=== PATIENT | male | born 1985 | race Caucasian/White ===

== ENCOUNTER → 2017-04-07 | Outpatient (CLI) | payer BC, OTHER ==
[~2017-04-07] MED LIST: ACIDOPHILUS1 EAC3 PO; APAP500 PO; ATIVAN0.5 MG PO; CEFAZOLIN-2 GM/1002 IV; CEFTIN500 MG; COLACE100 MG PO; ENOXAPARIN40 MG/0.1 SUBQ; FLORANEX GRANU1 EACH PO; HYDROCHLOROTHIA25 M1 PO; LAMISIL AT 1% C12 G1 TOP; LASIX 40 MG TAB40 M2 PO; LEXAPRO 10 MG T10 M1 PO; LISINOPRIL-HCT1 EACH PO; LISINOPRIL10 MG; MAG-AL PLUS SUS30 ML PO; MICROZIDE12.5 MG PO; PERCOCET 7.5-31 EACH PO; PROAIR HFA8.5 GM INH; PROBIOTIC1 EAC1 PO; SENOKOT-S1 TA1 PO; SUPRAX400 M1 PO; TRAMADOL 50 MG50 MG PO; TUMS PO; VITAMINC500 PO; ZINC SULFATE 2220 M1 PO
--- NOTE | ~2017-04-07 | SLE ---
[facility] [place] [address] POLYSOMNOGRAPHY STUDY Name: JENNIFER LEDBETTER Room #: [facility]..#: [id number] Admission: 04/07/17 Attend Phys: Cristóbal Turner MD Discharge: Date of : 87 Report #: [id number] THIS REPORT FOR: //name// CC: Pooja Turner MD HISTORY: A 31-year-old, height 5 feet 7 inches, weight 190 pounds. Usually goes to bed at 11, gets out of bed at 2:00 a.m. History of obstructive sleep apnea. He was on an auto titrating CPAP between 12 and 18 cm and did not tolerate. COMMENTS: CPAP/BiPAP titration night. Titrated at 7, 8, 9, 10, 12, 14, 16, 18 cm water pressure. He was then titrated on BiPAP. IPAP of 14, EPAP of 10; IPAP of 15, EPAP of 10, 17/10, 19/10, 21/10, 23/10. A definite setting was not established. At an IPAP of 23, EPAP of 10, the patient was seen for 59 minutes of which 9.5 minutes was in REM sleep, apnea-hypopnea index was 0 events per sleep hour, low sat of 93%. IMPRESSION: 1. History of obstructive sleep apnea, G47.33. 2. No significant arrhythmia noted. 3. A definite CPAP setting was not established. 4. A definitive BiPAP setting was not established. The patient was seen at an IPAP of 23, EPAP of 10. Supine position was noted, however. SUGGESTIONS: 1. In addition to specific therapy, the patient should be cautioned regarding driving or operating dangerous machinery unless fully alert. The patient will be cautioned regarding the use of respiratory depressants. 2. Continued weight loss is recommended. 3. Oral appliance or appropriate surgery may be considered with polysomnographic followup. 4. May consider an auto titrating BiPAP, minimum EPAP of 6, minimum pressure support of 6, max EPAP of 12, max pressure support 10 above EPAP. 5. If signs and symptoms not improved with therapy, further evaluation recommended. Please do not hesitate to contact me if I may be of further assistance. By: 25 [id number] Stefan Navarrete MD /nt
== END ==
LOC: SLEEPLAB 11:29
DX: G47.33 Obstructive sleep apnea (adult) (pediatric) (principal)

== ENCOUNTER 2017-07-22 08:52 | Inpatient (IN) | payer BC, OTHER ==
[~2017-07-22] VITALS: Ht 170.2 cm; Wt 233.1 kg
[2017-07-22 08:54] VITALS: BP 199/90
[2017-07-22 10:13] LABS: BASOPHILS 0.8 % (0.0-2.0); EOSINOPHILS 3.6 % (0.0-3.0); HEMATOCRIT 39.8 % (42.0-52.0); LYMPHOCYTES 15.4 % (24.0-44.0); MCH 26.6 pg (26.0-34.0); MCHC 32.7 g/dL (28.0-37.0); MCV 81.4 fL (80.0-100.0); MONOCYTES 9.2 % (1.0-8.0); PLATELET COUNT 236 thou/uL (150-400); RBC 4.89 mil/uL (4.50-6.00); RDW 16.3 % (10.5-14.5); WBC 11.2 thou/uL (4.0-11.0)
[2017-07-22 10:23] LABS: CALCIUM 8.6 mg/dL (8.5-10.1); CREATININE 0.9 mg/dL (0.7-1.3); MANUAL DIFF NO; POTASSIUM 4.5 mmol/L (3.5-5.1)
[2017-07-22 10:29] LABS: ALBUMIN 3.6 g/dL (3.4-5.0); TOTAL PROTEIN 7.9 g/dL (6.4-8.2)
[2017-07-22 11:58] LABS: CHOLESTEROL 123 mg/dL (<200); HDL CHOLESTEROL 37 mg/dL (>40); LDL CHOLESTEROL 74 mg/dL (<100); TC:HDL 3.3 Ratio (Not establshd); TRIGLYCERIDE 64 mg/dL (<150); VLDL 13 mg/dL (<40)
[2017-07-22 12:22] VITALS: BP 199/90
[2017-07-22 12:44] VITALS: BP 154/75
[2017-07-22 12:50] VITALS: BP 159/80
[2017-07-22 16:00] VITALS: BP 156/72
[2017-07-22 20:30] VITALS: BP 144/69
[2017-07-23 04:40] VITALS: BP 148/75
[2017-07-23 07:48] VITALS: BP 147/69
[2017-07-23 09:50] LABS: HEMATOCRIT 36.6 % (42.0-52.0); HEMOGLOBIN 12.4 gm/dL (14.0-18.0); MCH 27.3 pg (26.0-34.0); MCV 80.3 fL (80.0-100.0); RBC 4.55 mil/uL (4.50-6.00); RDW 16.4 % (10.5-14.5); WBC 8.9 thou/uL (4.0-11.0)
[2017-07-23 15:39] VITALS: BP 143/69
[2017-07-23 19:20] VITALS: BP 129/71
[2017-07-24 03:50] VITALS: BP 146/81
[2017-07-24 06:46] VITALS: BP 146/81
[2017-07-24 08:10] VITALS: BP 145/82
[2017-07-24 15:44] VITALS: BP 158/69
[2017-07-24 20:08] VITALS: BP 154/64
[2017-07-25 04:08] VITALS: BP 147/89
[2017-07-25 07:19] VITALS: BP 161/72
[2017-07-25] MEDS ORDERED: SYNTHROID50 MCG PO (10:24)
[2017-07-25] MEDS ORDERED: BACTRIM DS TAB1 EACH PO (10:25)
[2017-07-25] MEDS ORDERED: GLUCOPHAGE500 MG PO (10:25)
[2017-07-25 12:00] VITALS: BP 161/72
== END 2017-07-25 16:17 | disposition home or self-care (01) | DRG 603 ==
LOC: ER 08:52 → 4S 11:16 → EROBS 11:16 → 4S 12:51 → ENTRNSPT 07-25 14:29 → EDTRNSPTSTS 07-25 14:30 → 4S 07-25 16:17
PROVIDERS: Hospitalist; Physician Assistant
DX: L03.116 Cellulitis of left lower limb (principal); Z68.45 Body mass index [BMI] 70 or greater, adult; I10 Essential (primary) hypertension; L25.9 Unspecified contact dermatitis, unspecified cause; L03.115 Cellulitis of right lower limb; B37.9 Candidiasis, unspecified; G47.30 Sleep apnea, unspecified; I27.81 Cor pulmonale (chronic); E11.9 Type 2 diabetes mellitus without complications; E03.9 Hypothyroidism, unspecified; L73.9 Follicular disorder, unspecified; E66.01 Morbid (severe) obesity due to excess calories; Z79.899 Other long term (current) drug therapy; Z88.1 Allergy status to other antibiotic agents
CPT/HCPCS: 10102

== ENCOUNTER 2018-03-22 14:51 | Inpatient (IN) | payer BC, OTHER ==
[~2018-03-22] VITALS: Ht 170.2 cm; Wt 220.4 kg
[~2018-03-22 14:51] MED LIST changes: +BACTRIM DS TAB1 EACH PO; +GLUCOPHAGE500 MG PO; +SYNTHROID50 MCG PO
[2018-03-22 15:01] VITALS: BP 177/99
[2018-03-22] MEDS ORDERED: LASIX 20 MG TAB20 MG PO (15:06)
[2018-03-22 15:48] LABS: ABSOLUTE NEUTROPHILS 9.2 thou/uL (1.4-8.2); BASOPHILS 0.6 % (0.0-2.0); EOSINOPHILS 1.9 % (0.0-3.0); HEMATOCRIT 35.7 % (42.0-52.0); HEMOGLOBIN 11.8 gm/dL (14.0-18.0); LYMPHOCYTES 12.3 % (24.0-44.0); MCH 27.1 pg (26.0-34.0); MCHC 33.2 g/dL (28.0-37.0); MCV 81.6 fL (80.0-100.0); MONOCYTES 9.6 % (1.0-8.0); PLATELET COUNT 256 thou/uL (150-400); POLYS 75.6 % (36.0-66.0); RBC 4.37 mil/uL (4.50-6.00); RDW 15.5 % (10.5-14.5); WBC 12.2 thou/uL (4.0-11.0)
[2018-03-22 15:55] LABS: CALCIUM 9.1 mg/dL (8.5-10.1); POTASSIUM 3.8 mmol/L (3.5-5.1)
[2018-03-22 17:41] VITALS: BP 162/66
[2018-03-22 20:00] VITALS: BP 112/57
[2018-03-23 03:53] LABS: HEMATOCRIT 38.2 % (42.0-52.0); HEMOGLOBIN 12.5 gm/dL (14.0-18.0); MCH 27.5 pg (26.0-34.0); MCHC 32.6 g/dL (28.0-37.0); MCV 84.3 fL (80.0-100.0); RBC 4.53 mil/uL (4.50-6.00); RDW 16.2 % (10.5-14.5); WBC 10.3 thou/uL (4.0-11.0)
[2018-03-23 03:56] LABS: CALCIUM 8.7 mg/dL (8.5-10.1); CREATININE 0.9 mg/dL (0.7-1.3); POTASSIUM 4.4 mmol/L (3.5-5.1)
[2018-03-23 04:00] LABS: ALBUMIN 3.4 g/dL (3.4-5.0); PHOSPHORUS 5.4 mg/dL (2.5-4.9)
[2018-03-23 05:30] VITALS: BP 155/70
[2018-03-23 07:30] VITALS: BP 152/98
[2018-03-23 11:30] VITALS: BP 140/53
[2018-03-23 15:36] VITALS: BP 109/54
[2018-03-23 19:29] VITALS: BP 135/57
[2018-03-24 00:25] VITALS: BP 148/59
[2018-03-24 00:27] LABS: HEMATOCRIT 35.6 % (42.0-52.0); HEMOGLOBIN 11.8 gm/dL (14.0-18.0); MCH 26.9 pg (26.0-34.0); MCHC 33.1 g/dL (28.0-37.0); MCV 81.3 fL (80.0-100.0); RBC 4.38 mil/uL (4.50-6.00); RDW 15.3 % (10.5-14.5); WBC 11.1 thou/uL (4.0-11.0)
[2018-03-24 00:39] LABS: ALBUMIN 3.5 g/dL (3.4-5.0); CALCIUM 8.9 mg/dL (8.5-10.1); CREATININE 0.9 mg/dL (0.7-1.3); PHOSPHORUS 5.4 mg/dL (2.5-4.9); POTASSIUM 3.6 mmol/L (3.5-5.1)
[2018-03-24 04:18] VITALS: BP 145/75
[2018-03-24 05:40] LABS: COLLECTION DURATION 24 hours
[2018-03-24 05:42] LABS: TOTAL VOLUME 7500 mL
[2018-03-24 05:45] LABS: URINE PROTEIN (MG/DL) 1.2 mg/dL; URINE PROTEIN mg/24 hr < 149 mg/24hr (<149.1)
[2018-03-24 07:40] VITALS: BP 139/61
[2018-03-24 11:25] VITALS: BP 132/59
[2018-03-24 15:50] VITALS: BP 144/56
[2018-03-24 19:37] VITALS: BP 125/64
[2018-03-25 04:30] LABS: ALBUMIN 3.8 g/dL (3.4-5.0); CALCIUM 9.2 mg/dL (8.5-10.1); CREATININE 1.1 mg/dL (0.7-1.3); POTASSIUM 3.8 mmol/L (3.5-5.1); TOTAL BILIRUBIN 1.8 mg/dL (<0.1-1.0); TOTAL PROTEIN 9.1 g/dL (6.4-8.2)
[2018-03-25 04:34] VITALS: BP 151/73
[2018-03-25 08:00] VITALS: BP 132/61
[2018-03-25 11:35] VITALS: BP 119/56
[2018-03-25 16:05] VITALS: BP 133/67
[2018-03-25 20:00] VITALS: BP 146/84
[2018-03-26] VITALS (7 sets, daily range): BP systolic 110–133; BP diastolic 56–68
[2018-03-26] MEDS ORDERED: BACTRIM DS TAB1 EACH PO (08:26)
== END 2018-03-26 16:25 | disposition home or self-care (01) | DRG 603 ==
LOC: ER 14:51 → 2N 16:21 → EROBS 16:21 → 2N 17:16 → ENTRNSPT 03-26 16:12 → 2N 03-26 16:25
PROVIDERS: Hospitalist; Physician Assistant
DX: L03.116 Cellulitis of left lower limb (principal); L03.115 Cellulitis of right lower limb; E66.01 Morbid (severe) obesity due to excess calories; R60.1 Generalized edema; I10 Essential (primary) hypertension; E11.9 Type 2 diabetes mellitus without complications; E03.9 Hypothyroidism, unspecified; F32.9 Major depressive disorder, single episode, unspecified; F41.9 Anxiety disorder, unspecified; I27.81 Cor pulmonale (chronic); G47.33 Obstructive sleep apnea (adult) (pediatric); Z88.1 Allergy status to other antibiotic agents; Z68.45 Body mass index [BMI] 70 or greater, adult; Z79.899 Other long term (current) drug therapy
CPT/HCPCS: 10194

== ENCOUNTER 2018-08-03 10:04 | Inpatient (IN) | payer BC, OTHER ==
[~2018-08-03] VITALS: Ht 170.2 cm; Wt 215.9 kg
--- NOTE | ~2018-08-03 | HC ---
[facility] [place] [address] CONSULTATION Name: ANATOLYJENNIFEROSVALDO ALMANZA Room #: 450-P ADM IN M.R.#: [id number] Admission: 08/03/18 Attend Phys: Russ Chacon MD Discharge: Date of : 87 Report #: [id number] THIS REPORT FOR: //name// CC: Thang Velez DATE OF SERVICE: 08/05/2018 REASON FOR CONSULTATION: I was asked to evaluate concerning lower extremity cellulitis and lymphedema. HISTORY OF PRESENT ILLNESS: The patient was a 33-year-old with morbid obesity, chronic lymphedema of both lower extremities who has had recurrent cellulitis. He has had difficulty following up with his appointments for his lymphedema control. He was evaluated for laparoscopic sleeve gastrectomy. He has not followed through with this procedure. He has ALLERGIES TO CLINDAMYCIN. He noticed this past week increased swelling, erythema and pain involving his left lower extremity. Swelling worsened and has had associated cellulitis develop. No pain up in his groin. No specific injury other than he thinks that the lower portion of his lower leg skin rubbed on some shoes that he had. Also, has a posterior calf ulcer on the right lower extremity. No definite fever, chills or sweats. Does have malaise. MEDICATIONS: Include Synthroid, Glucophage, Lexapro, lisinopril/hydrochlorothiazide, Lasix, tramadol. PAST MEDICAL HISTORY: Morbid obesity, diabetes, chronic lymphedema, depression, anxiety, obstructive sleep apnea, right humerus fracture, hypertension, recurring lymphedema, cellulitis and lymphangitis. Community-acquired pneumonia. FAMILY HISTORY: Heart disease, diabetes, hypertension. SOCIAL HISTORY: Nonsmoker. No significant alcohol intake. REVIEW OF SYSTEMS: Ten-point review was negative other than what is described above. PHYSICAL EXAMINATION: GENERAL: He was sitting up in his chair, in no acute distress, alert and oriented. VITAL SIGNS: Stable, with no fever. HEENT: Atraumatic. Eyes were without scleral icterus or conjunctivitis. Mouth without mucositis or ulcer. NECK: Thick, supple. No mass. No peripheral adenopathy palpable. SKIN: With cellulitis in the left lower leg from the ankle to the knee. 4+ [facility] [address] [place] [address] CONSULTATION Name: JENNIFER LEDBETTER Room #: 450-[facility] IN M.R.#: [id number] Admission: 08/03/18 Attend Phys: Russ Chacon MD Discharge: Date of : 87 Report #: [id number] lymphedema in this region. 2+ lymphedema in the right lower extremity. Morbidly obese. BACK: Unremarkable with no lesions. LUNGS: Clear. HEART: Regular, without murmur. ABDOMEN: Soft, nontender, no hepatosplenomegaly or mass. Large abdominal pannus. NEUROLOGIC: Nonfocal with cranial nerves intact. Strength in upper and lower extremities intact and normal with normal deep tendon reflexes. Sensation in his hands and feet normal. LABORATORY DATA: Blood cultures negative to date. Right leg wound culture pending with Gram stain showing gram-positive angelia. Vancomycin trough was 13. Sedimentation rate 50. Creatinine 0.9. Liver function tests normal. Hemoglobin 10.8, WBC 8.9, platelet count 209,000. BNP 121. Chest x-ray with cardiomegaly. IMPRESSION: A 33-year-old morbidly obese gentleman with chronic lymphedema with cellulitis and lymphangitis evident, left lower extremity. He has a venous stasis ulcer to the posterior right lower leg. RECOMMENDATION: We will continue with cefazolin. So far no evidence of resistant organisms. The patient will need to pursue lymphedema clinic to control his lower extremity edema. He will follow up with General Surgery regarding gastric surgery. Continue with leg elevation and edema control. <ELECTRONICALLY SIGNED> By: Tremaine Landis MD 08/06/18 1214 [id number] [id number] Tremaine Landis MD /nt
--- NOTE | ~2018-08-03 | HC ---
[facility] [place] [address] CONSULTATION Name: LEDBETTERJENNIFER ALMANZA Room #: 450-P ADM IN M.R.#: [id number] Admission: 08/03/18 Attend Phys: Speedy Pickard MD Discharge: Date of : 87 Report #: [id number] THIS REPORT FOR: //name// CC: Speedy Velez DATE OF SERVICE: 08/04/2018 WOUND CARE CONSULTATION REASON FOR CONSULTATION: Cellulitis of right leg with painful open draining wound in the setting of lymphedema, super morbid obesity and diabetes mellitus, type 2. 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 He has had trouble with lymphedema of his legs for most of his life. He has had approximately 6 hospitalizations related to lymphedema complications. The patient had seen Dr. Marko Keita in outpatient consultation for consideration of weight reduction surgery, but did not complete the outpatient consultation process. The patient has had recurrent episodes of cellulitis of the legs, last admitted to [facility] on 06/17/2018. He has trouble with wrapping the legs. Does not have much help at home and is therefore noncompliant with regard to lymphedema wraps. The patient's left leg is typically larger than the right. His right leg began to give him trouble couple of weeks ago, became red, tender and swollen. This became worse and worse, then with more pain and drainage from the wound on the posterior aspect of the right lower leg near the ankle. For this, he was admitted to the Emergency Room yesterday by Dr. Speedy Pickard. PAST MEDICAL HISTORY: Super morbid obesity, lymphedema, diabetes mellitus type 2, multiple hospitalizations for cellulitis of lower extremities, sleep apnea, right humerus fracture in 2008, anxiety and depression, chronic lymphedema, community-acquired pneumonia. ALLERGIES: CLINDAMYCIN. MEDICATIONS: Include Synthroid, metformin, Lexapro, lisinopril, hydrochlorothiazide, Lasix, tramadol. REVIEW OF SYSTEMS: The patient is on his feet most of the day working. PHYSICAL EXAMINATION: GENERAL: Shows a super morbidly obese, pleasant, healthy appearing 33-year-old gentleman. HEENT: Mucous membranes are moist. [address] [address] CONSULTATION Name: ANATOLYJENNIFER ARCHIE Room #: 450-[facility] IN .R.#: [id number] Admission: 08/03/18 Attend Phys: Speedy Pickard MD Discharge: Date of : 87 Report #: [id number] LUNGS: Respirations are unlabored. ABDOMEN: Super morbidly obese. EXTREMITIES: Shows lymphedema of both lower extremities with his left leg approximately 60-70% larger than the right leg. There are chronic stasis changes of the left leg with red discoloration of the skin and chronic stasis dermatitis of the left leg with some crusted cutaneous lesions, but no open wounds. Examination of the right leg shows the lower leg is more red and cellulitic than the left. Posterior of the right leg near the ankle, there is a superficial open 2.5 x 1.5 cm open wound that is quite painful and bleeds on the dressing. Wound cultures will be taken of this. This is the source of the patient's drainage. IMPRESSION: 1. Super morbid obesity and consideration as an outpatient for weight reduction surgery. We will consult Dr. Marko Keita during his hospitalization. The patient can perhaps reenter into consideration for outpatient bariatric surgery. 2. Diabetes mellitus type 2 with skin complications and skin ulcer of the right leg. 3. Chronic lymphedema of both legs. 4. Cellulitis of right leg with open wound, essentially a pressure sore of the right posterior ankle, painful and draining, admitted for wound culture and IV antibiotics. Order morphine, Silvadene cream twice a day for symptomatic relief with ABD and Kerlix wraps as outpatient once he is discharged later on back in to the wound clinic and lymphedema therapy, try and find some more effective lymphedema therapy for him would treat prior to on an outpatient basis. <ELECTRONICALLY SIGNED> By: Giuseppe Thakkar MD 08/05/18 0724 0650 [id number] Giuseppe Thakkar MD /nt
--- NOTE | ~2018-08-03 | HC ---
[facility] [place] [address] CONSULTATION Name: LEDBETTERJENNIFEROSVALDO ALMANZA Room #: 450-P ADM IN M.R.#: [id number] Admission: 08/03/18 Attend Phys: Thang Ayers MD Discharge: Date of : 87 Report #: [id number] THIS REPORT FOR: //name// CC: Speedy Velez DATE OF SERVICE: 08/04/2018 NEPHROLOGY CONSULTATION REASON FOR CONSULTATION: Chronic edema. HISTORY OF PRESENT ILLNESS: A 33-year-old patient with massive obesity, long-standing chronic edema, long-standing lower extremity cellulitis and infected ulcers presents with more of the same and we were asked to see him to assist with fluid and electrolyte management. PAST MEDICAL HISTORY: He has had borderline diabetes, treated with metformin. He has had hypertension, treated with lisinopril and he has had chronic lymphedema, with attempted treatment with both hydrochlorothiazide and furosemide. He has had recurrent cellulitis of the lymphedematous lower extremities as well as depression, history of sleep apnea and previous right humerus fracture. FAMILY HISTORY: Positive for heart disease. SOCIAL HISTORY: No cigarettes or alcohol. Lives at home with his father and works at [employer]. REVIEW OF SYSTEMS: GENERAL: He is feeling reasonably well. EYES: No trouble with his vision. ENT: Hearing okay, swallows okay. ENDOCRINE: Borderline diabetes. RESPIRATORY: Obstructive sleep apnea. CARDIAC: No chest pain or angina. GASTROINTESTINAL: No nausea, vomiting or diarrhea. GENITOURINARY: No dysuria, hematuria or renal stones. NEUROLOGIC: No seizure, syncope or stroke. Ambulate okay. MUSCULOSKELETAL: Massively obese. PHYSICAL EXAMINATION: GENERAL: Massively obese gentleman in no acute distress, up in the chair. SKIN: Erythematous thickened lymphedematous changes below the knees bilaterally. HEENT: Extraocular movements are full. Vision intact. Hearing intact. [facility] [address] [place] [address] CONSULTATION Name: JENNIFER LEDBETTER Room #: 450-P [facility] IN [facility].#: [id number] Admission: 08/03/18 Attend Phys: Thang Ayers MD Discharge: Date of : 87 Report #: [id number] membranes moist. Dentition is somewhat poor. NECK: Supple. CHEST: Clear to auscultation. HEART: Regular. ABDOMEN: Obese. EXTREMITIES: As above. NEUROLOGIC: Grossly intact. LABORATORY DATA: Hemoglobin is 10.8 and platelets 209,000. Sodium 137, potassium 4.5, chloride 100, bicarbonate 31 and creatinine 0.9. ASSESSMENT AND PLAN: Chronic lymphedema with infection. Paradise treatment includes lymphedema treatment with wrapping of the lower extremities. Weight loss obviously would be the cintron. If we could treat his sleep apnea that would help with the swelling as well. He needs also to follow a low-salt diet. I do not believe furosemide is as good as torsemide. With his longer-acting insulin, I would change from furosemide to torsemide in this patient. Lisinopril is not a good choice in a patient with likely obesity hypoventilation and of course, getting his sleep apnea treated will also be important as well as keep him on the low-salt diet and we will follow along. <ELECTRONICALLY SIGNED> By: Christo Saldivar MD 08/05/18 1128 [id number] [id number] Christo Saldivar MD /nt
[~2018-08-03 10:04] MED LIST changes: +LASIX 20 MG TAB20 MG PO
[2018-08-03 10:05] VITALS: BP 191/90
[2018-08-03] MEDS ORDERED: TRAMADOL 50 MG50 MG PO (10:19)
[2018-08-03 11:14] LABS: ABSOLUTE NEUTROPHILS 6.5 thou/uL (1.4-8.2); BASOPHILS 0.6 % (0.0-2.0); EOSINOPHILS 3.3 % (0.0-3.0); HEMATOCRIT 33.2 % (42.0-52.0); HEMOGLOBIN 10.8 gm/dL (14.0-18.0); LYMPHOCYTES 17.4 % (24.0-44.0); MCH 26.6 pg (26.0-34.0); MCHC 32.6 g/dL (28.0-37.0); MCV 81.5 fL (80.0-100.0); MONOCYTES 6.7 % (1.0-8.0); PLATELET COUNT 232 thou/uL (150-400); RBC 4.08 mil/uL (4.50-6.00); RDW 16.3 % (10.5-14.5)
[2018-08-03 11:32] LABS: CALCIUM 8.6 mg/dL (8.5-10.1); CREATININE 0.9 mg/dL (0.7-1.3); POTASSIUM 3.8 mmol/L (3.5-5.1)
[2018-08-03 13:16] VITALS: BP 176/74
[2018-08-03 14:12] VITALS: BP 164/86
[2018-08-03 14:43] VITALS: BP 152/60
[2018-08-03 19:04] VITALS: BP 159/83
[2018-08-04 05:38] LABS: ABSOLUTE NEUTROPHILS 6.8 thou/uL (1.4-8.2); BASOPHILS 1.1 % (0.0-2.0); EOSINOPHILS 2.8 % (0.0-3.0); HEMATOCRIT 32.4 % (42.0-52.0); HEMOGLOBIN 10.8 gm/dL (14.0-18.0); LYMPHOCYTES 10.6 % (24.0-44.0); MCHC 33.2 g/dL (28.0-37.0); MCV 81.2 fL (80.0-100.0); MONOCYTES 9.2 % (1.0-8.0); PLATELET COUNT 209 thou/uL (150-400); POLYS 76.3 % (36.0-66.0); RBC 3.99 mil/uL (4.50-6.00); RDW 15.9 % (10.5-14.5); WBC 8.9 thou/uL (4.0-11.0)
[2018-08-04 05:50] LABS: ALBUMIN 2.9 g/dL (3.4-5.0); CALCIUM 8.9 mg/dL (8.5-10.1); CREATININE 0.9 mg/dL (0.7-1.3); POTASSIUM 4.5 mmol/L (3.5-5.1); TOTAL PROTEIN 8.1 g/dL (6.4-8.2)
[2018-08-04 07:30] VITALS: BP 163/69
[2018-08-04 19:22] VITALS: BP 136/67
[2018-08-05 07:13] VITALS: BP 162/75
[2018-08-05 19:13] VITALS: BP 117/55
[2018-08-05 23:41] VITALS: BP 117/55
[2018-08-06 06:44] LABS: ALBUMIN 3.1 g/dL (3.4-5.0); CALCIUM 9.1 mg/dL (8.5-10.1); CREATININE 1.1 mg/dL (0.7-1.3); POTASSIUM 4.1 mmol/L (3.5-5.1)
[2018-08-06 07:30] VITALS: BP 153/72
[2018-08-06 16:18] VITALS: BP 142/64
[2018-08-06 19:25] VITALS: BP 139/65
[2018-08-06 23:12] VITALS: BP 139/65
[2018-08-07 07:42] VITALS: BP 151/71
[2018-08-07 16:17] VITALS: BP 123/75
[2018-08-07 19:15] VITALS: BP 122/75
[2018-08-08 00:04] VITALS: BP 122/75
[2018-08-08 08:00] VITALS: BP 144/71
[2018-08-08] MEDS ORDERED: DEMADEX 2020 MG/1 TA PO (12:49)
[2018-08-08] MEDS ORDERED: CARDURA4 MG PO (12:49)
[2018-08-08] MEDS ORDERED: FLAGYL500 MG PO (12:49)
[2018-08-08] MEDS ORDERED: LEVAQUIN 500 M500 M2 PO (12:49)
[2018-08-08 13:25] VITALS: BP 144/71
== END 2018-08-08 16:14 | disposition home or self-care (01) | DRG 638 ==
LOC: ER 10:04 → EROBS 12:51 → 4W 12:51
PROVIDERS: Emergency Medicine; Internal Medicine; Internal Medicine Nephrology
DX: E11.622 Type 2 diabetes mellitus with other skin ulcer (principal); L03.115 Cellulitis of right lower limb; Z68.45 Body mass index [BMI] 70 or greater, adult; I42.9 Cardiomyopathy, unspecified; L97.219 Non-pressure chronic ulcer of right calf with unspecified severity; L97.319 Non-pressure chronic ulcer of right ankle with unspecified severity; E44.0 Moderate protein-calorie malnutrition; L03.116 Cellulitis of left lower limb; D63.8 Anemia in other chronic diseases classified elsewhere; I87.8 Other specified disorders of veins; I10 Essential (primary) hypertension; G47.33 Obstructive sleep apnea (adult) (pediatric); F32.9 Major depressive disorder, single episode, unspecified; E66.01 Morbid (severe) obesity due to excess calories; F41.9 Anxiety disorder, unspecified; E11.9 Type 2 diabetes mellitus without complications; Z87.81 Personal history of (healed) traumatic fracture; Z28.21 Immunization not carried out because of patient refusal; Z79.84 Long term (current) use of oral hypoglycemic drugs; Z79.899 Other long term (current) drug therapy; Z88.1 Allergy status to other antibiotic agents; Z82.49 Family history of ischemic heart disease and other diseases of the circulatory system; Z83.3 Family history of diabetes mellitus
CPT/HCPCS: 10045

== ENCOUNTER 2018-10-20 09:29 | Emergency (ER) | payer BC, OTHER ==
[~2018-10-20] VITALS: Ht 170.2 cm; Wt 226.8 kg
[~2018-10-20 09:29] MED LIST changes: +CARDURA4 MG PO; +DEMADEX 2020 MG/1 TA PO; +FLAGYL500 MG PO; +LEVAQUIN 500 M500 M2 PO
[2018-10-20 10:46] LABS: ABSOLUTE NEUTROPHILS 8.3 thou/uL (1.4-8.2); HEMATOCRIT 35.2 % (42.0-52.0); HEMOGLOBIN 11.8 gm/dL (14.0-18.0); LYMPHOCYTES 15.7 % (24.0-44.0); MCH 27.1 pg (26.0-34.0); MCHC 33.4 g/dL (28.0-37.0); MONOCYTES 7.2 % (1.0-8.0); PLATELET COUNT 283 thou/uL (150-400); POLYS 74.1 % (36.0-66.0); RBC 4.35 mil/uL (4.50-6.00); RDW 17.2 % (10.5-14.5); WBC 11.2 thou/uL (4.0-11.0)
[2018-10-20 10:58] LABS: CALCIUM 8.9 mg/dL (8.5-10.1); POTASSIUM 4.1 mmol/L (3.5-5.1)
[2018-10-20] MEDS ORDERED: NORCO 5-325 TA1 EACH PO (12:52)
[2018-10-20 13:01] VITALS: BP 164/86
== END 2018-10-20 13:04 | disposition home or self-care (01) ==
LOC: ER 09:29
PROVIDERS: Emergency Medicine
DX: I89.0 Lymphedema, not elsewhere classified (principal); I10 Essential (primary) hypertension; E66.01 Morbid (severe) obesity due to excess calories; G47.30 Sleep apnea, unspecified; F41.9 Anxiety disorder, unspecified; F32.9 Major depressive disorder, single episode, unspecified; E11.9 Type 2 diabetes mellitus without complications; Z86.2 Personal history of diseases of the blood and blood-forming organs and certain disorders involving the immune mechanism; Z88.1 Allergy status to other antibiotic agents; Z68.45 Body mass index [BMI] 70 or greater, adult

== ENCOUNTER → 2018-12-18 | Outpatient (CLI) | payer BC, OTHER ==
[~2018-12-18] MED LIST changes: +NORCO 5-325 TA1 EACH PO
== END ==
LOC: HYPER 11-26 13:35
DX: L97.811 Non-pressure chronic ulcer of other part of right lower leg limited to breakdown of skin (principal); L97.821 Non-pressure chronic ulcer of other part of left lower leg limited to breakdown of skin; S81.802A Unspecified open wound, left lower leg, initial encounter; E02 Subclinical iodine-deficiency hypothyroidism; G47.30 Sleep apnea, unspecified; E66.01 Morbid (severe) obesity due to excess calories; I10 Essential (primary) hypertension; I89.0 Lymphedema, not elsewhere classified; K21.9 Gastro-esophageal reflux disease without esophagitis; F41.9 Anxiety disorder, unspecified; F32.9 Major depressive disorder, single episode, unspecified; Z68.45 Body mass index [BMI] 70 or greater, adult; X58.XXXA Exposure to other specified factors, initial encounter; Y93.89 Activity, other specified; Y92.89 Other specified places as the place of occurrence of the external cause; Y99.8 Other external cause status

== ENCOUNTER 2019-01-08 16:39 | Inpatient (IN) | payer BC, OTHER ==
[~2019-01-08] VITALS: Ht 170.2 cm; Wt 229.1 kg
[2019-01-08 17:58] VITALS: BP 180/93
--- NOTE | 2019-01-08 19:23 | NUR ---
33 YO MALE DIRECTLY ADMITTED FROM . A&OX4. BILAT LOWER EXTREM ARE RED, WARM TO TOUCH WITH EDEMA. AFEBRILE THOUGH STATES HE IS CHILLING. IV PLACED IN L FA. ORIENTED PT TO ROOM/CALL LIGHT.
[2019-01-08 20:11] LABS: ABSOLUTE NEUTROPHILS 8.1 thou/uL (1.4-8.2); BASOPHILS 0.8 % (0.0-2.0); EOSINOPHILS 2.8 % (0.0-3.0); HEMATOCRIT 35.1 % (42.0-52.0); HEMOGLOBIN 11.5 gm/dL (14.0-18.0); LYMPHOCYTES 17.8 % (24.0-44.0); MCH 26.1 pg (26.0-34.0); MCHC 32.8 g/dL (28.0-37.0); MCV 79.6 fL (80.0-100.0); MONOCYTES 6.4 % (1.0-8.0); PLATELET COUNT 265 thou/uL (150-400); POLYS 72.2 % (36.0-66.0); RBC 4.41 mil/uL (4.50-6.00); RDW 16.7 % (10.5-14.5); WBC 11.2 thou/uL (4.0-11.0)
[2019-01-08 20:34] LABS: ALBUMIN 3.3 g/dL (3.4-5.0); CALCIUM 8.3 mg/dL (8.5-10.1); CREATININE 0.9 mg/dL (0.7-1.3); POTASSIUM 3.6 mmol/L (3.5-5.1); TOTAL BILIRUBIN 0.7 mg/dL (<0.1-1.0)
[2019-01-08 20:40] VITALS: BP 139/65
--- NOTE | 2019-01-09 03:27 | NUR ---
PT ALERT AND ORIENTED. UP AD JOAN IN ROOM. GIVEN ULTRAM FOR BLE PAIN-WITH RELIEF. CELULITIS TO BLE. PT IN BED WITH BLE ELEVATED ON PILLOWS.AFEBRILE. IV ABT GIVEN. ROOM AIR-NO RESP DISTRESS.
[2019-01-09 04:15] VITALS: BP 155/78
[2019-01-09 07:45] VITALS: BP 162/76
--- NOTE | 2019-01-09 09:53 | NUR ---
ORDERS RECEIVED FOR EVAL AND TREAT. OBSERVED Pt STAND AND AMBULATE TO THE BATHROOM WITHOUT DIFFICULTY. SPOKE WITH Pt WHO STATES HE IS HAVING NO DIFFICULTY WITH MOBILITY. Pt DECLINING FORMAL P.T. EVAL BUT APPEARS SAFE UP AD JOAN AND SAFE FOR HOME WHENEVER MEDICALLY CLEAR
--- NOTE | 2019-01-09 12:55 | NUR ---
ASSESSMENT-PT LIVES IN AN [place] WITH HIS DAD. 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 PT STILL WORKS AT [employer]. HE VOICES NO DC NEEDS AT THIS TIME. FOLLOWING FOR DC PLANNING.
--- NOTE | 2019-01-09 14:03 | NUR ---
WOUND CONSULT: PT. WAS SEEN TODAY BY DR. VARELA AND MYSELF. PT. IS WELL KNOWN TO THE WOUND CARE TEAM. PT. HAS CELLULITIS TO HIS BILATERAL LOWER EXTREMTIYS WITH ULCERATIIONS IN RELATION TO THIS. RECOMMENDATIONS: WOUND CARE TO BILATERAL LOWER EXTREMTIYS: GENTLY CLEANSE, APPLY GENTAMYCIN TO ULCERS, COVER WITH XEROFORM, THEN LYMEDEMA WRAPS, TO BE COMPLETED BY JOSHUA GOFF. PT. AND STAFF NURSE WERE INSTRUCTED ON PLAN OF CARE.
--- NOTE | 2019-01-09 14:23 | NUR ---
RD consult received, pt with multiple admissions. hx NIDDM, lymphedema and chronic lower extremity wounds. BG 94 at admit. Has carb controlled diet ordered. Usually eats well in hospital. Wt extreme class III obesity and has averaged >475 lb for several years. Multiple diet educations provided. Start Bart bid. Low nutrition risk
--- NOTE | 2019-01-09 17:26 | NUR ---
PT ASSESSED THIS AM. UP IN THE CHAIR W/ LEGS ELEVATED ALL SHIFT. AMBULTATED THE HALLS SEVERAL TIMES. WOUND CULTURE SENT TO LAB FROM POSTERIOR LEG WOUNDS. LYMPHEDEMA SPECIALIST HERE DOING TREATMENT.
[2019-01-09 17:45] VITALS: BP 116/51
[2019-01-09 22:20] VITALS: BP 144/68
[2019-01-10 04:37] LABS: CALCIUM 8.6 mg/dL (8.5-10.1); CREATININE 0.8 mg/dL (0.7-1.3)
[2019-01-10 04:45] VITALS: BP 129/60
--- NOTE | 2019-01-10 06:17 | NUR ---
PT UP AD JOAN TO THE BATHROOM. HAD A BM. WITH URINARY FREQUENCY. GIVEN ULTRAM X FOR BLE OF 02/04. DENIES ANY SOA. BLE WITH LYMPHEDEMA WRAPS. WILL CONTINUE WITH POC.
[2019-01-10 07:30] VITALS: BP 158/70
[2019-01-10 10:50] LABS: HEMATOCRIT 33.9 % (42.0-52.0); HEMOGLOBIN 11.1 gm/dL (14.0-18.0); MCH 26.3 pg (26.0-34.0); MCHC 32.6 g/dL (28.0-37.0); MCV 80.4 fL (80.0-100.0); RBC 4.21 mil/uL (4.50-6.00); RDW 16.4 % (10.5-14.5); WBC 8.4 thou/uL (4.0-11.0)
--- NOTE | 2019-01-10 14:50 | NUR ---
Assessment completed.vss.Pt in and out of bed today for activities .Good endurance noted.Blood sugar has been stable and required no insulin.Bilateral lower extremities wrap intact.Pt reported 3 loose stool today and wanted med to stop it.Dr Augustine notified and order noted.Will continue to monitor.
[2019-01-10 16:49] VITALS: BP 112/59
[2019-01-10 21:15] VITALS: BP 139/66
[2019-01-11 02:55] VITALS: BP 141/75
[2019-01-11 08:36] VITALS: BP 141/74
[2019-01-11 16:43] VITALS: BP 142/60
--- NOTE | 2019-01-11 16:55 | NUR ---
ASSUMED CARE AT 0700, SHIFT ASSESSMENT DONE, MEDS GIVEN, VSS. DENIES ANY PAIN, NAUSEA, VOMITING. UP WITH ASSIST. FSBS WAS 96, NO CEVERAGE NEEDED. LYMPHADEMA WRAP IN THE LEGS CAME LOOSE, WAS REINFORCED WITH MORE LAKEISHA WRAPS. HAD A BM TODAY. WILL CONTINUE TO ASSESS AND ASSIST WITH ADLs NEEDED.
[2019-01-11 19:33] VITALS: BP 134/60
[2019-01-12 04:49] VITALS: BP 130/66
--- NOTE | 2019-01-12 05:14 | NUR ---
ASSESSMENT COMPLETED.LYMPHEDEMA WRAP STILL IN PLACE ON HIS BLE.PT HAD A SMALL LOOSE STOOL AT HS.PT CONT ON IV ABX.UP TO THE BR WITH SBA.PT DENIED PAIN/N/V SO FAR.PT RESTING ON HIS BED AT THIS TIME.CALL LIGHT WITHIN REACH.
--- NOTE | 2019-01-12 07:30 | HC ---
[facility] [place] [address] [address] CONSULTATION Name: LEDBETTERJENNIFER ARCHIE Room #: 427-P ADM IN M.R.#: [id number] Admission: 01/08/19 ������������������ Attend Phys: Speedy Pickard MD Discharge: ������������������ Date of : 87 Report #: [id number] THIS REPORT FOR: //name// CC: Deven Pickard DATE OF SERVICE: 01/09/2019 CHIEF COMPLAINT: Bilateral lower extremity cellulitis and lymphedema. HISTORY OF PRESENT ILLNESS: This is a 33-year-old male patient with super morbid obesity, who presented with lower extremity cellulitis in the face of severe obesity and bilateral lower extremity lymphedema. He has an open ulceration on the right lateral lower leg. The patient states he has some pain and some pruritus, sometimes scratches his skin causing tearing. PAST MEDICAL HISTORY: Positive for super morbid obesity. He has been evaluated by Dr. Billy in the past for consideration of gastric sleeve procedure although has not completed the followup required. He has history of diabetes mellitus, hypertension, sleep apnea, depression, and cardiomyopathy. FAMILY HISTORY: Positive for heart disease, diabetes, and hypertension. SOCIAL HISTORY: Negative for alcohol, tobacco or drug use. MEDICATIONS: Cardura, Demadex, Flagyl, Synthroid, Glucophage, [place]. ALLERGIES: INCLUDE CLINDAMYCIN. REVIEW OF SYSTEMS: CONSTITUTIONAL: The patient denies fever, chills or weight loss. NEUROLOGICAL: The patient denies focal weakness, numbness or tingling. EYES: The patient denies visual changes, redness or drainage. ENT: The patient denies earache, nasal drainage or sore throat. CARDIOVASCULAR: The patient denies chest pain or palpitations. PULMONARY: The patient complains of mild shortness of breath, especially on exertion. GASTROINTESTINAL: The patient complains of obesity. Denies nausea or vomiting at this time. ORTHOPEDIC: The patient complains of pain, swelling and drainage from the right lower extremity. Other system in 14-point review of systems are negative. PHYSICAL EXAMINATION: VITAL SIGNS: At this time include pulse 94, respiratory rate 14, blood pressure 116/51, temperature 98.0. [facility] [address] [place] [address] CONSULTATION Name: LEDBETTERJENNIFERLIDNA ALMANZA Room #: 427-P ADM IN M.R.#: [id number] Admission: 01/08/19 ������������������ Attend Phys: Speedy Pickard MD Discharge: ������������������ Date of : 89 Report #: [id number] GENERAL: This is a chronically ill-appearing male patient who appears to be in minimal distress. HEENT: Head normocephalic. Nose and throat clear. NECK: Supple. LUNGS: Clear. ABDOMEN: Soft. Bowel sounds present. LOWER EXTREMITIES: Demonstrate 3+ edema. Ulceration, right lateral lower leg. Cellulitis, bilateral lower extremities. CLINICAL IMPRESSION: 1. Cellulitis, bilateral lower extremities. This is a venous-type ulceration in the right lower extremity. 2. Bilateral lymphedema. 3. Super morbid obese. 4. Diabetes mellitus. RECOMMENDATIONS: At this point in time, we will recommend a wound culture. Empiric antibiotics pending local wound culture. We will recommend topical gentamicin, Xeroform gauze and then lymphedema therapy with compression bandaging both lower extremities. Elevation as much as possible. The patient is agreeable to current plan of care. He would certainly benefit from weight loss surgery. The details of his non-completion of evaluation in the past are unavailable at this time. It may be worthwhile to have him once again consider evaluation for bariatric-type surgery for weight loss and modification of his comorbidities. I appreciate being asked to see him in consultation. ��������������������������������������������� <ELECTRONICALLY SIGNED> ���������������������������������������� By: Terry Preston MD ��������������������������������������������� 01/12/19 0730 [id number] Terry Preston MD /nt
[2019-01-12 08:43] VITALS: BP 121/59
--- NOTE | 2019-01-12 11:31 | NUR ---
WOUND FOLLOW UP: PT. WAS SEEN TODAY BY DR. VARELA AND MYSELF. PT. LEGS ARE CLINICALLY BETTER TODAY. REDNESS IS SUBSIDEDING AND SWELLING IS SIGNIFICANTLY DOWN. PT. IS RESONDING WELL TO CURRENT THERAPY. RECOMMENDATIONS: CONTINUE WITH CURRENT PLAN OF CARE. PT. AND STAFF NURSE WERE INSTRUCTED ON PLAN OF CARE.
[2019-01-12] MEDS ORDERED: BACTRIM DS TAB1 EACH PO (13:57)
[2019-01-12 16:23] VITALS: BP 143/69
[2019-01-12 17:18] VITALS: BP 143/69
--- NOTE | 2019-01-12 18:17 | NUR ---
ASSUMED CARE AT 0700, SHIFT ASSESSMENT DONE, MEDS GIVEN, VSS. DENIES ANY PAIN, NAUSEA, VOMITING. DISCHARGE ORDERS RECEIVED. OCCUPATIONAL THERAPHY DID THE LYMPADEMA WRAP. ORAL ANTIBIOTICS GIVEN. DISCHARGE PAPER WORK RECEIVED AND GIVEN. SCRIPTS GIVEN. PERIPHEARL IV WAS TAKEN OUT. LEFT WITH NURSING STAFF.
== END 2019-01-12 18:28 | disposition home or self-care (01) | DRG 603 ==
LOC: 4E 16:39
PROVIDERS: Internal Medicine; ADMIT Internal Medicine
DX: L03.116 Cellulitis of left lower limb (principal); Z68.45 Body mass index [BMI] 70 or greater, adult; I42.9 Cardiomyopathy, unspecified; L03.115 Cellulitis of right lower limb; I89.0 Lymphedema, not elsewhere classified; E66.01 Morbid (severe) obesity due to excess calories; E11.9 Type 2 diabetes mellitus without complications; D63.8 Anemia in other chronic diseases classified elsewhere; I10 Essential (primary) hypertension; G47.33 Obstructive sleep apnea (adult) (pediatric); F41.1 Generalized anxiety disorder; A49.01 Methicillin susceptible Staphylococcus aureus infection, unspecified site; E03.9 Hypothyroidism, unspecified; I87.2 Venous insufficiency (chronic) (peripheral); F32.9 Major depressive disorder, single episode, unspecified; Z79.899 Other long term (current) drug therapy; Z88.1 Allergy status to other antibiotic agents; Z83.3 Family history of diabetes mellitus; Z82.49 Family history of ischemic heart disease and other diseases of the circulatory system
CPT/HCPCS: 10783

== ENCOUNTER → 2019-01-08 | Outpatient (CLI) | payer BC, OTHER | LOC: HYPER 01-01 07:14 | DX: L97.811 Non-pressure chronic ulcer of other part of right lower leg limited to breakdown of skin (principal); L97.821 Non-pressure chronic ulcer of other part of left lower leg limited to breakdown of skin; I89.0 Lymphedema, not elsewhere classified; E66.01 Morbid (severe) obesity due to excess calories; E02 Subclinical iodine-deficiency hypothyroidism; G47.30 Sleep apnea, unspecified; I10 Essential (primary) hypertension; F41.9 Anxiety disorder, unspecified; F32.9 Major depressive disorder, single episode, unspecified; Z68.45 Body mass index [BMI] 70 or greater, adult ==

== ENCOUNTER → 2019-03-19 | Outpatient (CLI) | payer BC, OTHER | LOC: HYPER 03-12 12:08 | DX: L97.811 Non-pressure chronic ulcer of other part of right lower leg limited to breakdown of skin (principal); L97.821 Non-pressure chronic ulcer of other part of left lower leg limited to breakdown of skin; I89.0 Lymphedema, not elsewhere classified; E66.01 Morbid (severe) obesity due to excess calories; E02 Subclinical iodine-deficiency hypothyroidism; G47.30 Sleep apnea, unspecified; I10 Essential (primary) hypertension; F41.9 Anxiety disorder, unspecified; F32.9 Major depressive disorder, single episode, unspecified; Z91.81 History of falling; Z68.45 Body mass index [BMI] 70 or greater, adult ==

== ENCOUNTER → 2019-04-02 | Outpatient (CLI) | payer BC, OTHER | LOC: HYPER 06:52 | DX: L97.822 Non-pressure chronic ulcer of other part of left lower leg with fat layer exposed (principal); L97.821 Non-pressure chronic ulcer of other part of left lower leg limited to breakdown of skin; I89.0 Lymphedema, not elsewhere classified; E03.9 Hypothyroidism, unspecified; I10 Essential (primary) hypertension; E66.01 Morbid (severe) obesity due to excess calories; G47.30 Sleep apnea, unspecified; F41.9 Anxiety disorder, unspecified; F32.9 Major depressive disorder, single episode, unspecified; Z91.81 History of falling; Z68.45 Body mass index [BMI] 70 or greater, adult ==

== ENCOUNTER → 2019-04-23 | Outpatient (CLI) | payer BC, OTHER | LOC: HYPER 06:46 | DX: L97.811 Non-pressure chronic ulcer of other part of right lower leg limited to breakdown of skin (principal); L97.821 Non-pressure chronic ulcer of other part of left lower leg limited to breakdown of skin; L03.116 Cellulitis of left lower limb; I89.0 Lymphedema, not elsewhere classified; E66.01 Morbid (severe) obesity due to excess calories; E02 Subclinical iodine-deficiency hypothyroidism; G47.30 Sleep apnea, unspecified; I10 Essential (primary) hypertension; K21.9 Gastro-esophageal reflux disease without esophagitis; F41.9 Anxiety disorder, unspecified; F32.9 Major depressive disorder, single episode, unspecified; Z68.45 Body mass index [BMI] 70 or greater, adult ==

== ENCOUNTER → 2019-05-21 | Outpatient (CLI) | payer BC, OTHER | LOC: HYPER 07:03 | DX: L97.811 Non-pressure chronic ulcer of other part of right lower leg limited to breakdown of skin (principal); E02 Subclinical iodine-deficiency hypothyroidism; L03.116 Cellulitis of left lower limb; I89.0 Lymphedema, not elsewhere classified; E66.01 Morbid (severe) obesity due to excess calories; L97.821 Non-pressure chronic ulcer of other part of left lower leg limited to breakdown of skin; G47.30 Sleep apnea, unspecified; I10 Essential (primary) hypertension; K21.9 Gastro-esophageal reflux disease without esophagitis; F41.9 Anxiety disorder, unspecified; F32.9 Major depressive disorder, single episode, unspecified ==

== ENCOUNTER 2019-06-13 13:43 | Inpatient (IN) | payer BC, OTHER ==
[~2019-06-13] VITALS: Ht 175.3 cm; Wt 226.8 kg
[2019-06-13 16:28] LABS: ABSOLUTE NEUTROPHILS 8.7 thou/uL (1.4-8.2); BASOPHILS 0.4 % (0.0-2.0); EOSINOPHILS 2.5 % (0.0-3.0); HEMOGLOBIN 10.9 gm/dL (14.0-18.0); LYMPHOCYTES 18.1 % (24.0-44.0); MCH 26.1 pg (26.0-34.0); MCHC 33.2 g/dL (28.0-37.0); MCV 78.5 fL (80.0-100.0); MONOCYTES 6.8 % (1.0-8.0); PLATELET COUNT 270 thou/uL (150-400); POLYS 72.2 % (36.0-66.0); RDW 16.3 % (10.5-14.5)
[2019-06-13 16:36] LABS: POTASSIUM 4.1 mmol/L (3.5-5.1)
[2019-06-13 16:42] LABS: ALBUMIN 3.4 g/dL (3.4-5.0); DIRECT BILIRUBIN 0.2 mg/dL (<0.1-0.3); TOTAL BILIRUBIN 0.7 mg/dL (<0.1-1.0); TOTAL PROTEIN 8.7 g/dL (6.4-8.2)
[2019-06-13 17:29] VITALS: BP 155/75
[2019-06-13 17:55] VITALS: BP 146/50
[2019-06-13 18:10] VITALS: BP 149/85
--- NOTE | 2019-06-13 19:35 | NUR ---
PT ARRIVED TO UNIT AT APPROX 1820 BY ER STAFF. PT A&O, VSS, C/O BLE PAIN. WILL MANAGE WITH PO MEDS PER DEC. ADMISSION COMPLETED. WOUND CONSULT CALLED. WILL ACKKNOWLEDGE AND IMPLEMENT FURTHER ORDERS. PT DENIES NEEDS AT THIS TIME. WILL CONT TO MONITOR AND FOLLOW POC.
[2019-06-13 20:00] VITALS: BP 130/67
[2019-06-14] VITALS: BP 147/79
--- NOTE | 2019-06-14 03:51 | NUR ---
RECEIVED PT'S CARE AT 1915; PT. ON CHAIR; AOX4; ST. PAIN 6/10; DURING ASSESSMENT ST. DECREASE PAIN; /10; ST. SHARP PAIN FROM TIME TO TIME; LASTING BETWEEN 30s-60s; HS MEDICATION GIVEN; PRN PAIN MEDICATION GIVEN AT 2100; PAIN RE-ASSESSMENT ST. DECREASE PAIN; EDUCATED ABOUT PAIN MANAGEMENT; ST. UNDERSTANDING; EDUCATED ABOUT FALL PREVENTION; USE SUCKS WHILE AMBULATING; ST. UNDERSTANDING; ST. NOT USING ANY ASSISTIVE DEVICE TO AMBULATE; NEW IV STARTED; DO NOT TOLERATE IT; CRYIED; EDUCATED ABOUT THE NEED OF NEW IV DUE TO MEDICATION NOT COMPATIBLE; ST. UNDERSTANDING; THROUGH THE NIGTH ABLE TO REST FROM TIME TO TIME; WOUND CLEANSE WITH NORMAL SALINE; DRESSING APPLIED TO DECREASE PAIN DUE TO FRICTION; ASSESSMENT CHARGED; FOLLOWING POC; MONITORING; WILL PASS ON REPORT.
[2019-06-14 05:22] VITALS: BP 150/83
[2019-06-14 08:00] VITALS: BP 131/71
[2019-06-14] MEDS ORDERED: NEURONTIN 300300 M1 PO (09:47)
[2019-06-14] MEDS ORDERED: SYNTHROID50 MCG PO (09:48)
[2019-06-14 12:00] VITALS: BP 149/72
[2019-06-14 16:00] VITALS: BP 139/70
--- NOTE | 2019-06-14 17:44 | NUR ---
ASSUMED CARE OF PT AT SHIFT CHANGE. ASSESSMENT COMPLETED. MEDS GIVEN PER DEC. WOUND DR ASSESSED AND DRESSED WOUNDS WITH OPTIFOAM AND WRAPPED IN LAKEISHA BANDAGES. PT C/O PAIN IN LEGS WHICH IS ADDRESSED WITH MEDS PER DEC. A&O. PT UP AD JOAN. PT DENIES ANY NEEDS AT THIS TIME. WILL CONTINUE TO MONITOR AND FOLLOW POC.
--- NOTE | 2019-06-14 19:15 | NUR ---
ASSESSMENT AND CHARTING DONE BY NURSE SIMRAN ESPINAL REVIEWED, AGREE WITH ASSESSMENT AND CHARTING.
[2019-06-14 19:39] VITALS: BP 141/63
--- NOTE | 2019-06-15 03:36 | NUR ---
RECEIVED PT'S CARE AT 1910; PT. ON CHAIR; RESTING WITH EYES CLOSED; WOKE DURING REPORT; AOX4; DURING ASSESSMENT REQUESTED PRN PAIN MEDICATION; ST. FEELING TIRED; SLEEPY; VS WNL; REMAINED TO ELEVATED LEGS; NO ANSWER BACK; DURING PAIN RE-ASSESSMENT PT. SLEEPING; VANC T 16; PHARMACY NOTIFIED; ANTIBIOTIC GIVEN; ABLE TO REST WITH EYES CLOSED MOST OF THE NIGHT; ASSESSMENT CHARGED; FOLLOWING POC; MONITORING; WILL PASS ON REPORT.
[2019-06-15 04:50] VITALS: BP 147/69
[2019-06-15 07:55] VITALS: BP 153/90
--- NOTE | 2019-06-15 11:51 | HC ---
[facility] [place] [address] CONSULTATION Name: JENNIFER LEDBETTER Room #: 208-P ADM IN M.R.#: [id number] Admission: 06/13/19 Attend Phys: Juan Antonio Biswas MD Discharge: Date of : 89 Report #: [id number] THIS REPORT FOR: //name// CC: Juan Antonio Velez DATE OF SERVICE: 06/14/2019 WOUND CARE CONSULTATION NOTE REASON FOR CONSULTATION: Chronic lymphedema of bilateral lower extremities, now with bilateral leg cellulitis with weeping open wound. HISTORY OF PRESENT ILLNESS: The patient is a 33-year-old gentleman with super morbid obesity with alveolar hypoventilation, who has chronic lymphedema and we have treated before for lymphedema and cellulitis of the legs. Last hospitalization was several months ago and I have seen before. The patient noted worsening swelling, redness, tenderness, drainage of his leg with a foul odor from the drainage. He was admitted and placed on IV antibiotics, Zosyn, and vancomycin. Wound Care has been consulted. We know him well from previous visits. He has trouble complying with compression since compression wraps slipped down his legs. He has been seen in the Lymphedema Clinic, as well as the Wound Care Clinic. PAST MEDICAL HISTORY: Super morbid obesity with alveolar hypoventilation, history of recurrent cellulitis of the lower legs, chronic lymphedema, dyspnea on exertion, diabetes mellitus type 2. The patient is a known diabetic. ALLERGIES: TO CLINDAMYCIN. REVIEW OF SYSTEMS: Dyspnea on exertion, sleep apnea. MEDICATIONS: The patient is on Bactrim as an outpatient, also on Cardura, Demadex, Synthroid, Glucophage, Lexapro, Ultram. LABORATORY DATA: White blood count 12,000. Blood glucose 101. Albumin 3.4. PHYSICAL EXAMINATION: GENERAL: Shows a super morbidly obese young gentleman, alert, pleasant, conversant. HEENT: Mucous membranes are moist. NECK: Supple. RESPIRATIONS: Nonlabored. ABDOMEN: Super morbidly obese. EXTREMITIES: Examination of the lower extremities shows marked lymphedema of both lower extremities. Right lower extremity has an area of open weeping [address] [address] CONSULTATION Name: LEDBETTERJENNIFER Room #: 208-P ADM IN M.R.#: [id number] Admission: 06/13/19 Attend Phys: Juan Antonio Biswas MD Discharge: Date of : 89 Report #: [id number] superficial wound of the medial lower leg to the ankle, measuring approximately 12 cm x 5 cm. Surrounding skin is macerated and inflamed. Lower leg has cellulitis. Absorptive Optifoam, ABD, Kerlix, and Anderson wrap was applied. Examination of the left leg shows chronic lymphedema with some chronic inflammatory redness. The patient also has a small open wound to the lateral left leg measuring 2 x 2 cm with a minor amount of weeping. These were also dressed with absorptive Optifoam ABD, Kerlix, and an Anderson wrap. IMPRESSION: 1. 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 2. Diabetes mellitus type 2 with skin ulcer of the lower legs. 3. Chronic lymphedema. 4. Cellulitis of right and left leg. 5. Super morbid obesity with alveolar hypoventilation. PLAN: Continue IV antibiotics, local care with absorptive Optifoam over the wounds, ABD, Kerlix, and Anderson wrap. Wound Care team, Edwina Patel and ____. We will see the patient tomorrow, may substitute other absorptive dressings. Wound Care team will follow. The patient can follow up in [facility]. <ELECTRONICALLY SIGNED> By: Giuseppe Thakkar MD 06/15/19 1151 1602 [id number] Giuseppe Thakkar MD /nt
--- NOTE | 2019-06-15 14:50 | NUR ---
Met with patient who admits for cellulitis. 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 He uses bus for transportation. he reports he lives with father who does not drive. Patient reports he prev never rec a BIPAP due to company very rude to him for not meeting in [place] office for BIPAP. he reports transportation cont to be difficult for patient. patient to be seen by OT for lymphdeman wraps. he reports they often fall off at work. Patient with health insurance, not home bound. Anticipate dc home no needs. [employer] following.
--- NOTE | 2019-06-15 15:08 | NUR ---
Nutrition: pt admit with Right calf cellulitis, bilateral leg edema. Hx NIDDM, lymphedema, chronic LE wounds, HTN. Pt with hx of multiple diet educations, noncompliance and hx of weights > 475# x several years. BMI 73.8. BG controlled. Would consider adding carb controlled due to assist with calorie control as well as Na+ restriction. Will add Bart BID. Pt voices no education desires at this time. Low nutrition risk.
--- NOTE | 2019-06-15 15:24 | NUR ---
VSS LUNGS DIMINISHED AND CLEAR O2 SAT RA IS 100%. UP IN ROOM INDEPENDENTLY, AND TOLERATED WELL. BILATERAL LEGS WRAPPED IN [place] WRAPS, INTACT, WOUND CARE INTODAY, WILL GET LYMPHEDEMA WRAPS TOMORROW. WILL CONTINUE TO MONITER AND CARE FOR PT PER PLANOF CARE
[2019-06-15 15:40] VITALS: BP 165/77
[2019-06-15 20:05] VITALS: BP 141/74
[2019-06-16 03:30] VITALS: BP 121/63
--- NOTE | 2019-06-16 04:41 | NUR ---
ASSUMED PT CARE AROUND 1900. A&OX4. NO MAJOR COMPLAINTS THIS SHIFT. PT SLEPT IN CHAIR MOST OF THE NIGHT. RESP EVEN AND UNLABORED. UP AD JOAN AROUND THE ROOM WITH STEADY GAIT. BLE DRESSINGS C/D/I. C/O LEFT LEG PAIN. PAIN MEDICATION GIVEN INDICATED. PROGRESSING SLOWLY TOWARD POC GOALS. WILL CONTINUE TO MONTIOR FURTHER.
[2019-06-16 07:55] VITALS: BP 164/82
--- NOTE | 2019-06-16 16:00 | NUR ---
VSS LUNGS CLEAR AND DIMMINISHED O2 SAT RA IS 96%. BILATERAL LEGS WRAPPED BY OT TODAY FOR LYMPHEDEMA THERAPY, INTACT. NO ELEVATED TEMP TODAY. GOOD PAIN RELIEF OF BIALTERAL LOWER EXTREMITY PAIN WITH HYDROCODONE. PT UP IN ROOM AND BRP INDEPENDENTY AND STEADY ON FEET.WILL CONTINUE TO MONITER AND CARE FOR PT PER PLAN OF CARE
[2019-06-16 16:10] VITALS: BP 148/72
[2019-06-16 20:33] VITALS: BP 143/64
[2019-06-17 04:00] VITALS: BP 104/63
--- NOTE | 2019-06-17 04:39 | NUR ---
ASSESSMENTS CHARTED. PATIENT RECEIVING ANTIBIOTICS IV DURING SHIFT. REDRESSED LEFT FOOT AND REINFORCED LEFT LEG DRESSING. C/O PAIN IN BILATERAL LEGS 03/06 THEN SLEPT THROUGH BALANCE OF SHIFT. PT UP AT JOAN IN ROOM. PLAN OF CARE TO CONTINUE CURRENT TREATMENTS.
[2019-06-17 05:00] VITALS: BP 153/66
[2019-06-17 06:31] LABS: CALCIUM 8.4 mg/dL (8.5-10.1); CREATININE 0.8 mg/dL (0.7-1.3); POTASSIUM 4.4 mmol/L (3.5-5.1)
[2019-06-17 07:18] VITALS: BP 132/75
[2019-06-17] MEDS ORDERED: KEFLEX500 M1 PO (10:58)
[2019-06-17 13:36] VITALS: BP 132/75
--- NOTE | 2019-06-17 17:13 | NUR ---
patient to dc home. Sp with lmphodema clinic at [facility] and faxed orders. Discussed patient tansports via bus service. he will need assistance with f/u apts. Gave patient return to work letter. he plans return to work on Saturday.
--- NOTE | 2019-06-17 18:44 | NUR ---
ASSESSMENT CHARTED - MEDS PER DEC - PT UP IN THE CHAIR FOR MOST OF THE DAY - DRESING TO LEGS C/D/I. CHIKIS DIET AND FLUIDS - NO CO'S OF PAIN OR NAUSEA. PT HOME THIS AFTERNOON. INSTRUCTION RE HOME MEDS/ CARE AND FOLLOW UP GIVEN - STATED UNDERSTANDING OF INSTRUCTION GIVEN - LEFT UNIT VIA WHEELCHAIR HOME VIA PVT VEHICLE ACCOMPANIED BY FRIENDS. IV REMOVED PRIOR TO D/C. NO CO'S AT TIME OF DISCHARGE.
== END 2019-06-17 17:30 | disposition home or self-care (01) | DRG 603 ==
LOC: ER 13:43 → 2N 17:14 → EROBS 17:14 → 2N 17:56 → ENTRNSPT 06-17 17:16 → 2N 06-17 17:30
PROVIDERS: Emergency Medicine; ADMIT Hospitalist
DX: L03.116 Cellulitis of left lower limb (principal); I42.9 Cardiomyopathy, unspecified; E44.1 Mild protein-calorie malnutrition; Z68.45 Body mass index [BMI] 70 or greater, adult; L03.115 Cellulitis of right lower limb; I10 Essential (primary) hypertension; E66.01 Morbid (severe) obesity due to excess calories; F32.9 Major depressive disorder, single episode, unspecified; F41.9 Anxiety disorder, unspecified; I89.0 Lymphedema, not elsewhere classified; E11.628 Type 2 diabetes mellitus with other skin complications; E11.621 Type 2 diabetes mellitus with foot ulcer; G89.29 Other chronic pain; Z87.81 Personal history of (healed) traumatic fracture; Z88.1 Allergy status to other antibiotic agents; Z82.49 Family history of ischemic heart disease and other diseases of the circulatory system; Z83.3 Family history of diabetes mellitus; Z79.899 Other long term (current) drug therapy
CPT/HCPCS: 10081

== ENCOUNTER 2019-07-18 14:17 | Inpatient (IN) | payer BC, OTHER ==
[~2019-07-18] VITALS: Ht 180.3 cm; Wt 222.3 kg
[~2019-07-18 14:17] MED LIST changes: +KEFLEX500 M1 PO; +NEURONTIN 300300 M1 PO
[2019-07-18 14:31] VITALS: BP 151/94
[2019-07-18 15:50] LABS: ABSOLUTE NEUTROPHILS 12.6 thou/uL (1.4-8.2); BASOPHILS 0.3 % (0.0-2.0); EOSINOPHILS 0.8 % (0.0-3.0); HEMATOCRIT 37.3 % (42.0-52.0); LYMPHOCYTES 7.6 % (24.0-44.0); MCHC 32.2 g/dL (28.0-37.0); MCV 80.6 fL (80.0-100.0); MONOCYTES 9.8 % (1.0-8.0); PLATELET COUNT 285 thou/uL (150-400); POLYS 81.5 % (36.0-66.0); RBC 4.62 mil/uL (4.50-6.00); RDW 17.4 % (10.5-14.5); WBC 15.5 thou/uL (4.0-11.0)
[2019-07-18 15:57] LABS: CALCIUM 9.3 mg/dL (8.5-10.1); CREATININE 1.1 mg/dL (0.7-1.3); POTASSIUM 3.7 mmol/L (3.5-5.1)
[2019-07-18 16:03] LABS: DIRECT BILIRUBIN 0.4 mg/dL (<0.1-0.3); TOTAL BILIRUBIN 1.2 mg/dL (<0.1-1.0); TOTAL PROTEIN 9.9 g/dL (6.4-8.2)
[2019-07-18 17:03] VITALS: BP 151/94
[2019-07-18 17:44] VITALS: BP 160/76
--- NOTE | 2019-07-18 18:44 | NUR ---
PATIENT ADMITTED AT THIS TIME TO ROOM. HE IS ALERT ORIENTED X4. HE DID COMPLAIN OF PAINT TO BLE AND PRN TYLENOL ADMINISTERED. WOUNDS NOTED TO BLE AND NEW DRESSING APPLIED. PATIENT STATES HE WALKS ABOUT AT HOME BY HIMSELF WITH NO DIFFICULTY AND HAS NEVER HAD A FALL. WILL LET HIM BE STAND ASSIST THIS TIME. HE IS ALERT ENOUGH. WILL CONT WITH PLAN OF CARE.
[2019-07-18 23:10] VITALS: BP 144/81
[2019-07-19 03:22] VITALS: BP 156/92
--- NOTE | 2019-07-19 03:55 | NUR ---
PATIENT IS ALERT AND ORIENTED. PATIENT IS UP AD JOAN. PATIENTS PAIN IS CONTROLLED WITH PAIN MEDICATION. PATIENT IS ON IV ANTIBIOTICS FOR CELLUITIS. PATIENT IS OBESE WITH ACUTE ON CHRONIC LYMPHEDEMA IS BILATERAL LEGS. PATIENT LEGS ARE WEEPING/RED/SWOLLEN/FIRM. PATIENT IS ON ROOM AIR. PATIENT IS RESTING COMFORTABLY IN BED. WCM. PATIENT IS PROGRESSING TO GOALS.
[2019-07-19 05:34] LABS: HEMATOCRIT 36.9 % (42.0-52.0); HEMOGLOBIN 11.8 gm/dL (14.0-18.0); MCH 25.9 pg (26.0-34.0); RBC 4.55 mil/uL (4.50-6.00); RDW 17.3 % (10.5-14.5); WBC 15.7 thou/uL (4.0-11.0)
[2019-07-19 05:48] LABS: CALCIUM 8.5 mg/dL (8.5-10.1); CREATININE 0.9 mg/dL (0.7-1.3); POTASSIUM 3.8 mmol/L (3.5-5.1)
[2019-07-19 07:42] VITALS: BP 134/66
--- NOTE | 2019-07-19 12:25 | EKG ---
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 : 1985 Requested By: Juan Antonio Biswas Order Number: [id number] MD: Stephen Harper Measurements Intervals [place] Rate: 111 P: 17 [place]: 167 QRS: -2 QRSD: 99 T: 90 QT: 329 QTc: 447 Interpretive Statements Sinus tachycardia Probable LVH with secondary repol abnrm Compared to ECG 12/31/2016 15:23:53 Heart rate has increased Electronically Signed On 07-19-2019 12:25:00 CDT by Stephen Harper [email or web address] <ELECTRONICALLY SIGNED> By: Stephen Harper MD, [facility] 07/19/19 1225 1426 1426 Stephen Harper MD, [facility] /EPI
[2019-07-19 15:31] VITALS: BP 139/70
[2019-07-19 19:57] VITALS: BP 153/99
[2019-07-20 03:17] VITALS: BP 132/83
[2019-07-20 07:11] VITALS: BP 135/83
--- NOTE | 2019-07-20 08:14 | NUR ---
Pt. up in the chair most of the night. Medicated for leg pain with some relief. Right leg weeping , dressing intact. Encouraged pt. to elevate legs but can't tolerate for too long. Encouraged to call staff for assistance. Will continue to monitor.
--- NOTE | 2019-07-20 09:46 | NUR ---
Nutrition: Pt admit with BLE lymphedema, chronic wounds. Class 3 extreme obesity with BMI 78. Hx multiple diet educations, noncompliance. 4+ gen edema. On regular diet, eating 100%. Bart has been ordered in the past however pt voiced he dislikes. Agrees to ensure max, low calorie, high protein supplement daily to assist with wound healing needs. Pt voices no desire for education related to weight loss. REC add heart healthy to diet order.Low risk
--- NOTE | 2019-07-20 13:13 | NUR ---
ORDERS RECEIVED FOR EVAL AND TREAT. SPOKE WITH Pt WHO STATES HE IS SORE IN THE LEGS BUT ABLE TO GET AROUND WITHOUT ASSIST. OBSERVED Pt STAND FROM THE CHAIR AND AMBULATE A FEW FEET WITHOUT DIFFICULTY. Pt DECLINING FORMAL P.T. EVAL BUT APPEARS TO BE MOVING SAFELY. DISCUSSED WITH NURSING
[2019-07-20 16:37] VITALS: BP 138/76
--- NOTE | 2019-07-20 16:43 | NUR ---
INITIAL ASSESSMENT: SW reviewed chart and spoke with nursing and attending physician. Pt was admitted from home due to BLE cellulitis/lymphedema. SW met with pt at bedside. Introduced role of SW. Pt is alert/orientated x 4. Pt reports he lives at home. Prior to admission, pt was independent with ADLs. No use of DME. 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 Pt has done outpatient lymphedema therapy at [facility] in the past, and would like to start again after discharge. Pt states that he has trouble finding transportation to/from appts. Pt does not drive. Pt is not home bound and cannot receive services. Pt's PCP is Dr. Deven Velez. Plan is for pt to discharge home when medically stable. SW is following to assist as needed with discharge planning.
[2019-07-20 19:12] VITALS: BP 151/92
--- NOTE | 2019-07-20 20:27 | NUR ---
PT MEDICATED PRIOR TO OT WRAPPING HIS LEG WITH NORCO WITH FAIR RELIEF OBTAINED.
[2019-07-20 20:45] VITALS: BP 166/59
[2019-07-21 07:45] VITALS: BP 169/78
--- NOTE | 2019-07-21 08:57 | NUR ---
progress pt to 4s via bed from west oriented to room call light system and poc. bariatric recliner delivered. pt unable to tolerate bed or legs elevated in chair d/t pain. dressings completed as ordered. taking hydrocodone and morphine for severe pain and drsg changes. legs both extremely edematous red flaky and weeping serous fluid. odor noted to wounds and body odor also noted. pt up with sba ambulates slowly but steady. iv antibiotics given as ordered continue poc.
--- NOTE | 2019-07-21 09:03 | HC ---
[facility] [place] [address] CONSULTATION Name: ANATOLYJENNIFER ALMANZA Room #: 440-P ADM IN M.R.#: [id number] Admission: 07/18/19 Attend Phys: Juan Antonio Biswas MD Discharge: Date of : 89 Report #: [id number] THIS REPORT FOR: //name// CC: JuanA ntonio Velez DATE OF SERVICE: 07/20/2019 INFECTIOUS DISEASE CONSULTATION REASON FOR CONSULTATION: I was asked to evaluate concerning lower extremity cellulitis. HISTORY OF PRESENT ILLNESS: The patient is a 34-year-old morbidly obese gentleman with recurring cellulitis associated with profound lymphedema to his lower extremities, left greater than right. Last hospitalized in mid May. Treated with antibiotic therapy, dismissed on Keflex. Continues to have venous stasis wounds and large amount of drainage. Over the last several days, he has noticed increased pain and erythema along with fever. Hospitalized for further care. Has underlying diabetes. REVIEW OF SYSTEMS: Denies any cough or sputum production. He has had some shortness of breath. No nausea, vomiting or diarrhea. No dysuria. PAST MEDICAL HISTORY: Obesity, hypertension, obstructive sleep apnea, anxiety, depression, lower extremity lymphedema, cardiomyopathy, diabetes, right humerus fracture, pneumonia. ALLERGIES: CLINDAMYCIN. MEDICATIONS: As noted on his MAR including gabapentin, levothyroxine, Lexapro, Ultram, now on vancomycin and Zosyn. FAMILY HISTORY: Diabetes, hypertension, coronary artery disease. SOCIAL HISTORY: Nonsmoker, no significant alcohol intake. PHYSICAL EXAMINATION: VITAL SIGNS: Afebrile and hemodynamically stable. GENERAL: He was alert and cooperative up in his chair, morbidly obese. SKIN: With right lower leg venous stasis wounds with associated cellulitis extending up to his thigh. Mild tenderness in his ___ groin. 4+ edema in his lower leg with chronic lymphedema changes. 3+ lymphedema in his right lower extremity with venous stasis dermatitis changes. EYES: Without scleral icterus. MOUTH: Without mucositis. [facility] [address] [place] [address] CONSULTATION Name: LEDBETTERJENNIFERLINDA ALMANZA Room #: 440-[facility] IN M.R.#: [id number] Admission: 07/18/19 Attend Phys: Juan Antonio Biswas MD Discharge: Date of : 89 Report #: [id number] NECK: Supple. LUNGS: Clear. HEART: Regular, without murmur, gallop or rub. ABDOMEN: Obese with large abdominal pannus. No tenderness. LABORATORY STUDIES: Culture of the ___ leg wound is pending. Vancomycin trough was 23. Dose was adjusted. Creatinine 0.9. Hemoglobin 11.8, WBC 15.7, platelet count 256,000. Blood cultures are pending. IMPRESSION: 1. Right lower extremity venous stasis wound with secondary infection. 2. Morbid obesity. 3. Diabetes. 4. Hypothyroidism. RECOMMENDATIONS: We will continue broad antibiotic coverage for the patient who has had recent hospitalization and previous report of Staph aureus and Pseudomonas from his wounds. He will stay on vancomycin, and Zosyn and I have adjusted his vancomycin dosing. He will continue with localized wound care and edema control as best we can. <ELECTRONICALLY SIGNED> By: Tremaine Landis MD 07/21/19 0903 [id number] [id number] Tremaine Landis MD /nt
--- NOTE | 2019-07-21 11:55 | 2DMMODE ---
[facility] [address] [place] [address] 2 D/M-MODE ECHOCARDIOGRAM Name: LEDBETTERJENNIFER ARCHIE Room #: 440-P ADM IN M.R.#: [id number] Admission: 07/18/19 Attend Phys: Juan Antonio Biswas MD Discharge: Date of : 89 Report #: [id number] THIS REPORT FOR: //name// APPROVED REPORT Study performed: 07/21/2019 10:33:29 EXAM: Comprehensive 2D, Doppler, and color-flow Echocardiogram Patient Location: In-Patient Room #: 440 Status: routine BSA: 3.09 HR: 88 bpm BP: 169/78 mmHg Rhythm: NSR Other Information Study Quality: Technically Limited Technically limited study due to body habitus, inability to position patient. Indications Diabetes Hypertension/HDD Echo Enhancing Agent Indication: Endocardial border delineation Agent(s) / Amount(s) Used: Optison 4 cc Pulmonary Valve PV Peak Carl.: 1.63 m/s PV Peak Gr.: 10.58 mmHg Tricuspid Valve RAP Estimate: 5.00 mmHg Left Ventricle The left ventricle is normal size. There is normal LV segmental wall motion. There is normal left ventricular wall thickness. Left ventricular systolic function is hyperdynamic. LVEF is 65-70%. This study is not technically sufficient to allow evaluation of the LV diastolic function. Right Ventricle The right ventricle is normal size. Right ventricular systolic function appears grossly normal. [facility] [address] [place] [address] 2 D/M-MODE ECHOCARDIOGRAM Name: JENNIFER LEDBETTER Room #: 440-P ADM IN M.R.#: [id number] Admission: 07/18/19 Attend Phys: Juan Antonio Biswas MD Discharge: Date of : 89 Report #: [id number] [facility] The left atrium size is normal. The right atrium size is normal. Aortic Valve The aortic valve is not well visualized. No aortic regurgitation is present. There is no aortic valvular stenosis. Mitral Valve Mitral valve is not well visualized. There is no mitral valve regurgitation noted. No evidence of mitral valve stenosis. Tricuspid Valve The tricuspid valve is normal in structure. Trace tricuspid regurgitation. Pulmonic Valve Pulmonic valve is not well visualized. There is no pulmonic valvular regurgitation. Great Vessels The aortic root is normal in size. IVC is normal in size and collapses >50% with inspiration. Pericardium There is no pericardial effusion. <Conclusion> The left ventricle is normal size. LVEF is 65-70%. The aortic valve is not well visualized. Mitral valve is not well visualized. The tricuspid valve is normal in structure. Trace tricuspid regurgitation. Pulmonic valve is not well visualized. The aortic root is normal in size. There is no pericardial effusion. <ELECTRONICALLY SIGNED> By: Mac Rich MD 07/21/19 1155 1155 1155 Mac Rich MD /INF
[2019-07-21 13:45] VITALS: BP 142/69
--- NOTE | 2019-07-21 17:55 | NUR ---
Assumed patient care at 0715. Patient has lymphoma wraps intact to lower bilateral extremities. Yellow drainage is noted from both legs; he has incontinent pads under his feet. Pain has ranged from "level two to five"; he has been given Hydrocodone po and Morphine IV push; both have been helpful in reducing his pain. Vital signs have been stable, LSCTA, ABD is soft et non-tender, BS x's 4. Patient's blood sugar was 132 @ 1445. He was not given his Metformin, due to having an Contrast Dye for Echocardiogram. Patient was assisted with a bath during this shift. Will continue to monitor.
[2019-07-21 19:00] VITALS: BP 149/81
--- NOTE | 2019-07-21 19:32 | NUR ---
ASSUMED CARE OF PATIENT AT 0715, PATIENT ALERT AND ORIENTED. UP AD JOAN IN HIS ROOM. PATIENT C/O PAIN TODAY WITH BILATERAL LEGS, RECEIVED NORCO AND MORPHINE IV THIS SHIFT. DRAINAGE NOTED ON PADS, THIS RN REINFORCED DRESSING WITH KERLIX X 2. LEFT AC IV NOT GOOD, THIS RN ATTEMPTED TO RESTART IV, UNABLE TO OBTAIN. DIDN'T WANT A SECOND NURSE TO ATTEMPT, THIS RN CALLED IV TEAM/THALIA, NEW IV RIGHT FOREARM. PATIENT RECEIVED IV ANTIBIOTICS X 2 THIS SHIFT. WILL CONTINUE TO MONITOR.
--- NOTE | 2019-07-22 03:12 | NUR ---
PATIENT ALERT AND ORIENTED X4. SLEEPS IN CHAIR USUALLY WITH FEET DOWN. TALKED PATIENT INTO RAISING THEM UP WITH A PILLOW UNDER THEM AT LEAST FOR A LITTLE WHILE. WRAPS LY LOWER EXT. LY LOWER EXT EXTREMELY EDEMATOUS AND WEEPING. C/O PAIN, MED GIVEN WITN GOOD RELIEF. SLEPT OFF AND ON DURING NIGHT.
[2019-07-22 06:53] LABS: ALBUMIN 2.7 g/dL (3.4-5.0); CALCIUM 8.9 mg/dL (8.5-10.1); CREATININE 0.9 mg/dL (0.7-1.3); PHOSPHORUS 4.6 mg/dL (2.5-4.9); POTASSIUM 3.9 mmol/L (3.5-5.1)
[2019-07-22 07:41] VITALS: BP 156/81
--- NOTE | 2019-07-22 14:16 | NUR ---
CARE TEAM AND PT HAD INDICATED THAT PT IS ANTICIPATING COMMING TO GET OT OP LYMPHEDEMA TREATMENT HERE AT [facility] [place]. PT HAD EXPRESSED HAVING ISSUES WITH TRANSPORTATION. CM SENT THE FOLLOWING EMAIL TO LIAISON WITH THE [employer] TO SEE IF THEY WOULD BE ABLE TO ASSIST WITH $500.00 WORTH OF TRANSPORT COST FOR THE PT. CM AWAITING RESPONSE. Sharee Ms. Ac, My name is Katharina I am a social psychologist at [facility] in [place], [place]. I have completed two request for assistance applications through [employer]. I have a patient who isn't home bound and therefore doesn't qualify for home health to do lymphedema therapy. He had come to the hospital and gotten it done as am outpatient in the past and had hoped to do that again once he discharged this time but he had issues with transportation. I believe I recall the presenters indicating that transportation isn't a need that is usually approved, but i just thought I'd ask before submitting an application. please let me know at your convenience. Thank you. Katharina King Bradley Linebacker Crewmember [facility]
--- NOTE | 2019-07-22 14:47 | NUR ---
Assumed patient care at 0715. Patient's vital signs have been WNL's, LSCTA, ABD soft and on-tender, Lymphedema Wraps were changed this am. Patient has been given Hydrocodone x's 1 and Morphine x's 1 thus far during this shift.Pain medications have been helpful in reducing pain to lower bilateral extremeties. Patient has now been placed on a 1500mL fluid restrictions; Intake and output are being monitered. Patient has been educated about this. He verbalizes an understanding. Will continue to monitor.
[2019-07-22 15:45] VITALS: BP 147/68
[2019-07-22 20:12] VITALS: BP 131/66
--- NOTE | 2019-07-23 04:02 | NUR ---
Pt. rested quietly at intervals during the night when checked on during frequent rounds. He prefers to sleep in the recliner chair. Po pain medication given at shift change and pt. reports a decrease in pain level. Bilateral leg dressings are intact. Iv infiltrated and pt. became tearful because another iv needed to be placed. Pt. reports that he is tired of getting stuck.
[2019-07-23 09:40] VITALS: BP 169/67
--- NOTE | 2019-07-23 16:49 | NUR ---
VASCULAR ACCESS CONSULTED PT UNABLE TO LAY IN BED ATTEMPTED GRETCHEN CEPHALIC UNABLE TO PASS GUIDEWIRE. CLAUDE CEPHALIC WIDELY PATENT WITH USG,4FR POWER PICC 55CM INSERTED TO 0CM PER HOSPITAL P&P. STAT CXR. PT TOLERATED WELL
[2019-07-23 17:35] VITALS: BP 136/75
--- NOTE | 2019-07-23 17:45 | NUR ---
1ST CXR TOO DEEP WITHDREW PICC 3CM ,2ND CXR CONFIRMS CAJ. PICC RELEASED FOR IMMEDIATE USE PER PROTOCOL TO JUAN C MCNAIR
[2019-07-23 19:49] VITALS: BP 148/63
--- NOTE | 2019-07-23 20:11 | NUR ---
ASSUMED CARE OF PATIENT AT 0715, PATIENT ALERT AND ORIENTED X 4. PATIENT C/O MILD PAIN, REFUSED PAIN MEDS UNTIL AT THE END OF SHIFT, RECEIVED HYDROCODONE 1 TABLET AT THE END OF THE SHIFT. PATIENT HAD RIGHT FOREARM IV, NOT WORKING WELL. THIS RN NOTIFIED DR HUYNH OF NEEDING MIDLINE/PICC LINE. PICC LINE INSERTED BY THALIA/IV TEAM, GOOD TO USE. BILATERAL LEG DRESSING IN PLACE, LYMPHEDEMA DRESSING DONE 3 X WEEK LAST DONE ON SATURDAY. PATIENT HAS BEEN KEEPING LEGS ELEVATED SOME OF THE SHIFT, NO DRAINAGE NOTED TODAY. IV ANTIBIOTICS GIVEN X 2 THIS SHIFT. WILL CONTINUE TO MONITOR.
--- NOTE | 2019-07-24 06:37 | NUR ---
PROGRESS PT A/O X4. PLEASANT AND COOPERATIVE. RATING PAIN TO BILATERAL LOWER LEGS AN 5 TO 9 TAKING HYDRODONE AND MORPHINE SPARINGLY FOR PAIN. UP AD JOAN AMBULTING IN [place] AND TO BATHROOM PRN. PICC LINE TO CLAUDE C/D/I WITH INTACT DRESSING AND GOOD BLOOD RETURN AND FLUSHES WITHOUT RESISTANCE. IV ANTIBIOTICS GIVEN ORDERED. TAKING MORPHINE AND HYDROCODONE FOR PAIN WITH EFFECT. CONTINUE POC.
[2019-07-24 08:06] VITALS: BP 152/70
[2019-07-24] MEDS ORDERED: ZOSYN 3.3753.375 GM IV (10:12)
[2019-07-24] MEDS ORDERED: VANCO 1.251.25 GM/25 IVPB (10:13)
[2019-07-24] MEDS ORDERED: TRAMADOL 50 MG50 MG PO (10:13)
[2019-07-24] MEDS ORDERED: METOLAZONE 2.52.5 MG PO (10:14)
--- NOTE | 2019-07-24 13:42 | NUR ---
DISCHARGE PLANNING. PATIENT IS READY FOR DISCHARGE. POST ACUTE RECOMMENDED AT DISCHARGE. PATIENT REFERRAL FAXED TO [facility], AND [facility]. ALL ADMISSIONS COORDINATORS NOTIFIED OF PATIENTS DISCHARGE NEEDS AND THAT HE IS READY FOR DISCHARGE. ALL TO REVIEW AND NOTIFY CM ONCE COMPLETED. FOLLOWING TO ASSIST.
--- NOTE | 2019-07-24 14:24 | NUR ---
CM MET WITH PT AND PROVIDED IN NETWORK SNF LIST FOR HIM TO REVIEW. PT ASKED THAT REFERRAL BE SENT TO [facility], [facility], AND [facility]. REFERRALS SENT. PT INDICATED THAT HE NEEDED FMLA PAPERWORK COMPLETED CM ASKED PHYSICAIN IF HE COULD COMPLETE IT AND CM HASN'T RECEIVED RESPONSE. CM TO FOLLOW INDICATED WITH DC PLANNING.
[2019-07-24 16:10] VITALS: BP 150/72
[2019-07-24 19:53] VITALS: BP 151/73
--- NOTE | 2019-07-24 20:50 | NUR ---
UP INDEPENDENTLY IN ROOM. HAD GOOD DIURESIS FROM TORSEMIDE THIS AM. HAD 700 ML FLUID FOR DAY SHIFT. ON 1500 ML FLUID RESTRICTION. HAD INCREASED PAIN TODAY ESPECIALLY AFTER LYMPHEDEMA NURSE CHANGED LEG DRESSINGS THIS AM. ALTERNATED MORPHINE AND HYDROCODONE WITH MODERATE RELIEF. SAT UP IN RECLINER ALL DAY. ENCOURAGED TO ELEVATE LEGS. IV ANTIBIOTICS CONTINUED ORDERED.
--- NOTE | 2019-07-25 03:00 | NUR ---
PATIENT AOX4 MAKES NEEDS KNOWN. PAIN CONTROLLED THIS SHIFT. PATIENT REFUSED TO SLEEP IN BED OR ELEVATE BLE. EDEMA ON BLE. BLE DRESSING ARE C/D/I. PATIENT IS ASLEEP ON THE RECLINER BREATHING REGULAR AND UNLABOURED.
[2019-07-25 08:00] VITALS: BP 137/53
--- NOTE | 2019-07-25 12:49 | HC ---
[facility] [place] [address] CONSULTATION Name: LEDBETTERJENNIFEROSVALDO ALMANZA Room #: 440-P ADM IN M.R.#: [id number] Admission: 07/18/19 Attend Phys: Juan Antonio Biswas MD Discharge: Date of : 89 Report #: [id number] THIS REPORT FOR: //name// CC: Juan Antonio Velez DATE OF SERVICE: 07/19/2019 WOUND CARE CONSULTATION NOTE REASON FOR CONSULTATION: Acute cellulitis of right lower extremity in the setting of super morbid obesity and chronic lymphedema and bouts of recurrent cellulitis. 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 We have seen him on several occasions in the past. In addition to super morbid obesity, the patient has severe massive chronic bilateral lymphedema of the lower extremities and recurrent bouts of cellulitis. He began to feel poorly 4 to 5 days ago with fever, chills, sweats, and general malaise. He was admitted yesterday through the Emergency Room, afebrile, temperature of 36.6 with white blood count of 15,500. The patient has increased pain, redness and drainage of the right leg. He has been begun on IV vancomycin and Zosyn. The patient has a history of diabetes mellitus type 2. The patient recognizes that his cellulitis of his leg is the cause of his illness and malaise. IV vancomycin and Zosyn have been begun. HOME MEDICATIONS: Cardura, Synthroid, metformin, Neurontin, Lexapro, Ultram. PAST MEDICAL HISTORY: 1. Super morbid obesity with alveolar hypoventilation. 2. Hypertension. 3. Sleep apnea. 4. Anxiety and depression. 5. Chronic massive lymphedema. 6. Cardiomyopathy. 7. Non-insulin dependent diabetes mellitus. REVIEW OF SYSTEMS: Immobility, shortness of breath. PHYSICAL EXAMINATION: GENERAL: Shows a super morbidly obese, pleasant 34-year-old male. RESPIRATIONS: Unlabored. HEENT: The patient is alert and cooperative. LUNGS: Respirations unlabored. HEART: Shows regular rate and rhythm. [facility] [address] [place] [address] CONSULTATION Name: ANATOLYJENNIFERLINDA ALMANZA Room #: 440-P [facility] IN M.R.#: [id number] Admission: 07/18/19 Attend Phys: Juan Antonio Biswas MD Discharge: Date of : 89 Report #: [id number] ABDOMEN: Morbidly obese. EXTREMITIES: Lower extremity exam shows massive lymphedema of both legs. The right leg is very red and cellulitic from mid-calf to the foot. There is marked edema, welling of the right foot with tender, red blanching erythema. Posterior aspect of the right calf has a large 15 x 15 cm area with exudate and heavy drainage. This area was open and macerated. IMPRESSION: 1. Super morbid obesity with alveolar hypoventilation. 2. Diabetes mellitus type 2, non-insulin dependent. 3. Bilateral massive lymphedema. 4. Cellulitis of right leg with heavy drainage from the posterior leg. PLAN: We will do wound culture of the posterior open areas of the right leg. Continue IV vancomycin. Order topical Silvadene and ABD pads and Kerlix wrap to the right leg. Wound care team, Edwina Patel, will see the patient on Saturday. <ELECTRONICALLY SIGNED> By: Giuseppe Thakkar MD 07/25/19 [id number] Giuseppe Thakkar MD /nt
[2019-07-25 14:05] VITALS: BP 144/64
--- NOTE | 2019-07-25 17:57 | NUR ---
PT A&OX4, VSS, PAIN IN BLE. PAIN MEDIATION GIVEN. PATIENT TOLERATING DIET AND DENIES N/V. PATIENT CONTINUES ON 1500ML FLUID RESTRICTION, PLEASE SEE I&O. PATIENT WALKS WITH STANDBY ASSIST TO BATHROOM. NO SIGNS OF DISTRESS. LYPHEDEMA WRAPS REMAIN C/D/I. WILL CONTINUE TO MONITOR.
[2019-07-25 20:48] VITALS: BP 144/79
--- NOTE | 2019-07-26 04:29 | NUR ---
Pt. rested quietly at intervals during the night when checked on during frequent rounds. He c/o bilateral lower leg pain and pain med given (see emar) with some relief noted. Lymphedema wraps intact to bilateral lower legs.
[2019-07-26 07:24] VITALS: BP 144/81
[2019-07-26 15:12] VITALS: BP 157/62
[2019-07-26 17:13] LABS: CALCIUM 9.3 mg/dL (8.5-10.1); CREATININE 1.2 mg/dL (0.7-1.3)
[2019-07-26 17:16] LABS: POTASSIUM 2.8 mmol/L (3.5-5.1)
--- NOTE | 2019-07-26 18:23 | NUR ---
REINFORCED DRESSING TO WOUNDS TO BLE. PT TOLERATED WELL. K ELEVATED THIS PM. BEING TREATED. STAYED ON RECLINER ALL DAY. NO COMPLAIN OF PAIN. CONT TO PROGRESS TOWARDS DISCHARGE GOALS.
--- NOTE | 2019-07-27 04:01 | NUR ---
Pt. rested quietly at intervals during the night when checked on during frequent rounds. He does c/o pain to his bilateral lower legs and has been medicated for pain (see emar) with some relief noted. Pt. prefers to sleep up in the recliner chair.
[2019-07-27 06:34] LABS: CALCIUM 9.6 mg/dL (8.5-10.1); CREATININE 1.3 mg/dL (0.7-1.3); POTASSIUM 3.4 mmol/L (3.5-5.1)
[2019-07-27 07:32] VITALS: BP 150/79
--- NOTE | 2019-07-27 09:59 | NUR ---
Follow up: Chronic BLE lymphedema and chronic wounds, extreme class III obesity. Denies education needs. Eating 100% and drinking Ensure Max. Remains low nutrition risk
--- NOTE | 2019-07-27 11:48 | NUR ---
Received awake on bed. Due medications given as prescribed, able to swallow tablets w/o difficulty. On room air. On blood sugar monitoring, no insulin coverage prescribed. With PICC line at L upper arm- intact and flushing well. With bilateral leg dressings, C/D/I- pt due for leg dressing change today. Up ad silvia. On fluid restriction- pt informed and aware. Able to ambulate in the room and sit out on the chair. Pain meds given prior to leg dressing change. Vital signs stable.
[2019-07-27 13:12] LABS: BASOPHILS 0.4 % (0.0-2.0); EOSINOPHILS 1.7 % (0.0-3.0); HEMATOCRIT 36.2 % (42.0-52.0); HEMOGLOBIN 11.5 gm/dL (14.0-18.0); LYMPHOCYTES 15.2 % (24.0-44.0); MCH 26.2 pg (26.0-34.0); MCHC 31.8 g/dL (28.0-37.0); MCV 82.3 fL (80.0-100.0); MONOCYTES 9.3 % (1.0-8.0); PLATELET COUNT 335 thou/uL (150-400); POLYS 73.4 % (36.0-66.0); RDW 17.1 % (10.5-14.5); WBC 13.5 thou/uL (4.0-11.0)
--- NOTE | 2019-07-27 15:19 | NUR ---
dp sent referral to [facility], they said they didn't get referral last Saturday. Waiting on today's therapy notes to send out to [facility] and [facility]
--- NOTE | 2019-07-27 15:38 | NUR ---
WAITING ON AUTH FROM INSURANCE FOR PT TO GO TO [facility].
[2019-07-27 20:10] VITALS: BP 150/67
[2019-07-28 03:56] VITALS: BP 135/82
--- NOTE | 2019-07-28 05:27 | NUR ---
ASSUMED CARE OF PT AT 1900HRS. PT IS AOX4 AND IS UP AD JOAN. PT REPORTED SOME PAIN AND WAS TREATED WITH PRN PAIN MEDS. ISOLATION CONTINUED. ABX DOSE REDUCED PER DR HUYNH. VSS AND NO S/S OF ACUTE DISTRESS. PT WAS ABLE TO SLEEP PART OF THE SHIFT. TOBI CONTINUE TO MONITOR.
[2019-07-28 08:37] VITALS: BP 145/88
--- NOTE | 2019-07-28 10:40 | NUR ---
Received awake on bed. Due medications given as prescribed. A+O. On blood sugar monitoring, no insulin coverage but with oral Metformin. Vital signs stable. With PICC line at L upper arm- intact and flushing well, PICC line protocol observed. Up ad silvia. Bilateral leg dressing in place, C/D/I- dressing done by lymphedema nurse M-W-F. Pain scale of 3/10 upon assessment, offered pain meds but refused, will inform nurse once he wants his pain meds to be given. Still a/w CM input re: placement. Maintained on fluid restriction of 1500/24 hrs, pt informed and aware. Maintained on isolation- MRSA- protocol observed.
[2019-07-28 14:18] VITALS: BP 141/84
--- NOTE | 2019-07-28 17:25 | NUR ---
cm visited with pt at bedside, remain on isolation precaution. education that still waiting on insurance auth with [facility] or [facility]. " i cant go home with iv abx and tx need to go to facility. it will be safer since have dog in home and would not want sometime to accidentally happen with iv equip"/tamika.
--- NOTE | 2019-07-28 18:29 | NUR ---
ASSUMED CARE LATE AM. PT UP AD JOAN IN THE ROOM AND SITS IN CHAIR NOT BED. IN GOOD SPIRITS. WATCHED FLUID RESTRICTION WELL. VOIDED SEVERAL TIMES. NO C/O PAIN. KEEPS LEGS ELEVATED. LYMPHEDEMA THERAPIST HERE TOMORROWN TO REWRAP LEGS. BLOOD SUGARS WELL CONTROLLED
[2019-07-28 19:44] VITALS: BP 141/73
--- NOTE | 2019-07-29 01:59 | NUR ---
ASSUMED CARE OF PT AT 1900HRS. PT IS AOX4 AND LETS NEEDS BE KNOWN. PT IS UP AD JOAN. PT REPORTED SOME N/V, DIARRHEA. ABX TREATMENT CONTINUED. PT REPORTED SOME PAIN AND WAS TREATED WITH PRN PAIN MEDS. PT WAS ABLE TO GET COMFORTABLE AND SLEEP PART OF THE SHIFT. NO S/S OF ACUTE DISTRESS. WILL COTINUE TO MONITOR.
[2019-07-29 07:22] VITALS: BP 140/76
--- NOTE | 2019-07-29 13:45 | NUR ---
patient will dc today to go to [facility], DP faxed dc paperwork to facility and gave to 4w veterinary surgery technologist to include in cc. [facility] and told family. Patient to be picked up 4:00 pm [facility].
--- NOTE | 2019-07-29 14:16 | NUR ---
AUTH WAS RECIEVED FOR PT TO [place] [facility] [place]. CHART COPY MADE. ORDERS FAXED. [facility] REPORT TO BE CALLED TO ASK FOR [facility]. PT TO NOTIFY HIS FAMILY. NO OTHER CM INTENVENTION INDICATED. CASE CLOSED.
--- NOTE | 2019-07-29 15:16 | NUR ---
REPORT CALLED TO [facility]. REPORT GIVEN TO JACKSON.
[2019-07-29 15:24] VITALS: BP 130/52
--- NOTE | 2019-07-29 15:28 | NUR ---
LEG WOUND DRESSINGS CHANGED BY LYMPH EDEMA NURSE. NO PHOTOS TAKEN DUE TO WRAPS ALREADY CHANGED BY LYMPY EDEMA NURSE AND PT DECLINES REMOVAL FOR PICTURES.
--- NOTE | 2019-07-29 18:25 | NUR ---
182 PT LEFT FOR [facility]IA TRANSPORTERS . PT TRANSPORTED BY STRETCHER. PT ATE DINNER PRIOR TO DEPARTURE.
== END 2019-07-29 18:29 | DRG 872 ==
LOC: ER 14:17 → EROBS 16:20 → 4S 16:20 → 3W 16:20 → 4S 07-20 20:54 → 4W 07-27 11:13
PROVIDERS: Emergency Medicine; Hospitalist; Nurse Practitioner Family; Specialist; ADMIT Hospitalist
PROC: 02HV33Z Insertion of Infusion Device into Superior Vena Cava, Percutaneous Approach (ICD-10-PCS; principal; 2019-07-23)
PROC: B548ZZA Ultrasonography of Superior Vena Cava, Guidance (ICD-10-PCS; principal; 2019-07-23)
DX: A41.9 Sepsis, unspecified organism (principal); L03.116 Cellulitis of left lower limb; E66.2 Morbid (severe) obesity with alveolar hypoventilation; Z68.44 Body mass index [BMI] 60.0-69.9, adult; E44.1 Mild protein-calorie malnutrition; I42.9 Cardiomyopathy, unspecified; L03.115 Cellulitis of right lower limb; I87.8 Other specified disorders of veins; E03.9 Hypothyroidism, unspecified; B95.62 Methicillin resistant Staphylococcus aureus infection as the cause of diseases classified elsewhere; E11.9 Type 2 diabetes mellitus without complications; I10 Essential (primary) hypertension; F41.9 Anxiety disorder, unspecified; F32.9 Major depressive disorder, single episode, unspecified; Z87.81 Personal history of (healed) traumatic fracture; Z87.01 Personal history of pneumonia (recurrent); Z79.84 Long term (current) use of oral hypoglycemic drugs; Z79.899 Other long term (current) drug therapy; Z88.1 Allergy status to other antibiotic agents; Z83.3 Family history of diabetes mellitus; Z82.49 Family history of ischemic heart disease and other diseases of the circulatory system
CPT/HCPCS: 10047; 10100; 10102; 10879; 27000

== ENCOUNTER 2020-04-24 13:04 | Inpatient (IN) | payer BC, OTHER ==
[~2020-04-24] VITALS: Ht 167.6 cm; Wt 226.8 kg
--- NOTE | ~2020-04-24 | HC ---
[facility] [place] [address] [place] [address] CONSULTATION Name: JENNIFER LEDBETTER Room #: 458-P [facility] IN M.R.#: [id number] Admission: 04/24/20 Attend Phys: Naif Lim MD Discharge: 04/30/20 Date of : 87 Report #: [id number] THIS REPORT FOR: cc: Deven Velez MD, Kirk D. MD Althoff, Jeffrey R. MD ~ CC: Naif Velez DATE OF SERVICE: 04/25/2020 CHIEF COMPLAINT: Lymphedema with ulceration of the right lower extremity. HISTORY OF PRESENT ILLNESS: This is a 34-year-old male patient with whom I am familiar with morbid obesity and diabetes as well as lower extremity lymphedema, who has developed increasing pain, swelling, redness, drainage and ulceration to the right lower extremity. We have seen him many times. He usually requires aggressive lymphedema therapy and elevation of his legs. He notes significant pain and increasing drainage recently. He has been taking Bactrim at home. Denies any fever or chills, but significant pain in his leg. PAST MEDICAL HISTORY: Positive for cellulitis, hypertension, super morbid obesity, sleep apnea, anxiety, depression, lymphedema, community-acquired pneumonia and cardiomyopathy. MEDICATIONS: Include Lasix, lisinopril, hydrochlorothiazide, Bactrim, Neurontin, Synthroid, Lexapro, metformin, tramadol. ALLERGIES: CLINDAMYCIN. SOCIAL HISTORY: Negative for current alcohol or tobacco use. FAMILY HISTORY: Noncontributory. REVIEW OF SYSTEMS: CONSTITUTIONAL: The patient denies fever, chills or weight loss. NEUROLOGICAL: The patient denies focal weakness, numbness or tingling. EYES: The patient denies any visual changes, redness or drainage. ENT: The patient denies earache, nasal drainage or sore throat. CARDIOVASCULAR: The patient denies chest pain, palpitations or diaphoresis. PULMONARY: The patient denies cough or shortness of breath. GASTROINTESTINAL: The patient denies nausea, vomiting, diarrhea or abdominal pain. ORTHOPEDIC: The patient complains of pain, swelling, drainage from the right lower extremity and swelling of both legs. Other systems in a 14-point review of systems are negative. [address] [address] CONSULTATION Name: CECI LEDBETTERSHUA ARCHIE [facility]: 458-[facility] ..#: [id number] Admission: 04/24/20 Attend Phys: Naif Lim MD Discharge: 04/30/20 Date of : 87 Report #: [id number] PHYSICAL EXAMINATION: VITAL SIGNS: At this time include temperature of 36.3, pulse 79, respiratory rate 18, blood pressure 132/62. GENERAL: This is a chronically ill-appearing male patient who appears to be in mild discomfort. HEENT: Head normocephalic. Nose and throat clear. NECK: Supple. LUNGS: Clear. HEART: Regular rhythm. ABDOMEN: Obese, soft, nontender. EXTREMITIES: Lower extremities demonstrate a very large venous type ulceration to the posterior lateral calf on the right side, some surrounding cellulitis and wound infection noted. Drainage is serous. Minimal odor at this time. NEUROLOGIC: The patient is alert, oriented and appropriate. LABORATORY STUDIES: Sodium 133, potassium 4.8, chloride 100, CO2 of 25, BUN 21, creatinine 1.1, glucose 111, calcium is 8.6, magnesium is 2.1. White blood cell count 10.5 with a hemoglobin of 12.5. CLINICAL IMPRESSION: 1. Lymphedema to the bilateral lower extremities with cellulitis and venous stasis ulcerations. 2. Super morbid obesity. 3. Hypertension. 4. Diabetes mellitus. 5. Mild protein-calorie malnutrition with albumin 3.4. RECOMMENDATIONS: We will recommend an Aquacel Ag to the open ulcers. We will consult occupational therapy for lymphedema therapy, MLD and wrappings 2-3 times per week. Elevation of the lower extremities. He will need q. 2 hour turning and aggressive management of his nutrition and continuation of current medications. The patient is agreeable to current plan of care. Would recommend that he receive outpatient lymphedema therapy as well. I appreciate being asked to see him in consultation. By: [id number] Terry Preston MD /nt
[~2020-04-24 13:04] MED LIST changes: +METOLAZONE 2.52.5 MG PO; +VANCO 1.251.25 GM/25 IVPB; +ZOSYN 3.3753.375 GM IV
[2020-04-24 13:09] VITALS: BP 200/77
[2020-04-24] MEDS ORDERED: FUROSEMIDE 20 M20 M1 PO (13:17)
[2020-04-24] MEDS ORDERED: BACTRIM DS TAB1 EACH PO (13:17)
[2020-04-24] MEDS ORDERED: LISINOPRIL-HCT1 EAC2 PO (13:17)
--- NOTE | 2020-04-24 13:39 | NUR ---
Lab notified to come draw blood work
[2020-04-24 14:24] LABS: ABSOLUTE NEUTROPHILS 7.8 thou/uL (1.4-8.2); EOSINOPHILS 2.6 % (0.0-3.0); HEMATOCRIT 35.8 % (42.0-52.0); HEMOGLOBIN 12.1 gm/dL (14.0-18.0); LYMPHOCYTES 17.3 % (24.0-44.0); MCH 27.9 pg (26.0-34.0); MCHC 33.8 g/dL (28.0-37.0); MCV 82.6 fL (80.0-100.0); MONOCYTES 7.6 % (1.0-8.0); PLATELET COUNT 261 thou/uL (150-400); POLYS 71.5 % (36.0-66.0); RBC 4.33 mil/uL (4.50-6.00); RDW 16.3 % (10.5-14.5); WBC 10.9 thou/uL (4.0-11.0)
[2020-04-24 14:34] LABS: CALCIUM 8.5 mg/dL (8.5-10.1); CREATININE 1.3 mg/dL (0.7-1.3); POTASSIUM 4.1 mmol/L (3.5-5.1)
[2020-04-24 15:47] VITALS: BP 209/91
--- NOTE | 2020-04-24 16:04 | NUR ---
ATTEMPTED TO CALL REPORT TO 4W. NURSE REQUEST TO CALL BACK IN 10 MIN
[2020-04-24 17:07] LABS: ALBUMIN 3.4 g/dL (3.4-5.0)
--- NOTE | 2020-04-24 17:18 | NUR ---
PT UNABLE TO BE TRANSPORTED TO PT AWAITING BARIATRIC BED
[2020-04-24 17:26] VITALS: BP 141/64
[2020-04-24 17:33] LABS: TSH 6.273 uIU/mL (0.358-3.740)
[2020-04-24 18:40] VITALS: BP 144/62
[2020-04-24 20:13] VITALS: BP 109/48
[2020-04-24 23:28] VITALS: BP 138/62
--- NOTE | 2020-04-25 01:01 | NUR ---
ASSUMED PT CARE AROUND 1930. RECEIVED IN CHAIR. AXOX4. INDEPENDENT WITH ADLs. BLE WOUNDS PICTURES TAKEN AND INITAL CARE RENDERED PER PROTOCOL. PT TOLERATED THE CARE WELL. NO S/S ACUTE DISTRESS NOTED OR REPORTED AT THIS TIME. WILL CONT TO MONITOR FOR ANY CHANGES IN CONDITION.
[2020-04-25 01:06] LABS: GLYCOHEMOGLOBIN (HGB A1C) 5.5 % (4.8-5.6)
[2020-04-25 04:33] VITALS: BP 139/74
[2020-04-25 06:18] LABS: HEMATOCRIT 37.1 % (42.0-52.0); HEMOGLOBIN 12.5 gm/dL (14.0-18.0); MCHC 33.7 g/dL (28.0-37.0); MCV 83.2 fL (80.0-100.0); RBC 4.45 mil/uL (4.50-6.00); RDW 16.1 % (10.5-14.5); WBC 10.5 thou/uL (4.0-11.0)
[2020-04-25 06:24] LABS: CALCIUM 8.6 mg/dL (8.5-10.1); CREATININE 1.1 mg/dL (0.7-1.3); MAGNESIUM 2.1 mg/dL (1.8-2.4); POTASSIUM 4.8 mmol/L (3.5-5.1)
[2020-04-25 07:50] VITALS: BP 132/62
--- NOTE | 2020-04-25 10:18 | NUR ---
Assess due to high BMI 80.7 and admit with cellulitis to bilateral lower extremities. Hx DM, morbid obesity, hypothyroidism, HTN. Lymphedema present, 3+ bilateral to feet/legs. Requires lasix. BG well controlled. Suggest add 2g Na diet with carb control diet order. Eating 100%. Wt loss education has been reviewed in past on multiple occasions. Class III extreme obesity with wts >500 lb for several years. No need for oral supplements at this time as long as pt continues to eat 100% of high protein foods. Low nutrition risk
--- NOTE | 2020-04-25 11:25 | NUR ---
Assumed pt care at 7am.Assessment completed.vss.Pt up in chair for breakfast and am meds.Good appetite.No verbal c/o.Pt prefered to be in chair rather than bariatric bed during the day.Dr Lim here,order noted.No c/o soa or discomfort at present.Drsg to rt foot intact.Will continue to monitor.
--- NOTE | 2020-04-25 13:07 | NUR ---
ORDERS FOR EVAL AND TREAT. Pt FAMILIAR TO THERAPY. SPOKE WITH Pt WHO STATES HE IS MOVING LIKE HE ALWAYS DOES AND DECLINING A FORMAL P.T. EVAL.
[2020-04-25 20:42] VITALS: BP 97/54
[2020-04-26 05:18] LABS: HEMOGLOBIN 11.3 gm/dL (14.0-18.0); MCH 27.7 pg (26.0-34.0); MCHC 33.3 g/dL (28.0-37.0); MCV 83.2 fL (80.0-100.0); RBC 4.09 mil/uL (4.50-6.00); WBC 9.6 thou/uL (4.0-11.0)
[2020-04-26 05:37] LABS: CALCIUM 8.4 mg/dL (8.5-10.1); CREATININE 1.2 mg/dL (0.7-1.3); MAGNESIUM 2.2 mg/dL (1.8-2.4); POTASSIUM 4.7 mmol/L (3.5-5.1)
--- NOTE | 2020-04-26 05:52 | NUR ---
Assumed pt care at 1900. Pt A/OX4,VSS. C/o pain to BLE,medicated per EMAR with relief reported. Pt's up ad silvia in room, encouraged to call for help as needed. Encouraged to keep extremities elevated d/t edema, cellulitis. Pt prefers to sleep on the chair,was going to try to lay down on the bariatric bed but chose not to.Dsg to RLE C/D/I. Remains on contact isolation for MRSA history. Resting quietly at this time w/o any distress noted will continue to monitor pt.
[2020-04-26 07:52] VITALS: BP 121/50
[2020-04-26 15:13] VITALS: BP 112/56
--- NOTE | 2020-04-26 15:45 | NUR ---
PT ADMITTED RELATED TO CELLULITIS TO BOTH LOWER EXTREMITIES. CM REVIEWED CHART AND SPOKE WITH CARE TEAM. CM CALLED AND SPOKE WITH PT AT BEDSIDE THIS DAY. PT INDICATED HE LIVES IN AN APARTMENT WITH HIS FATHER WITH 2 STEPS TO ENTER AND NONE INSIDE. PT INDICATED HE HAD BEEN INDEPENDENT WITH MOBILITY SUPERVISOR [employer] ACCOUNTS BUT HAD NEEDED ASSISTANCE WITH LOWER EXTREMITY DRESSING AND TOILETING. 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 HAS DONE OP LYMPHEDEMA TREATMENT HERE AT [facility] IN PAST BUT HAS ISSUES WITH TRANSPORT. CM TO SEE IF HH PROVIDER CAN BE FOUND TO PROVIDE SERVICE AT HOME. CM TO FOLLOW INDICATED WITH DC PLANNING.
[2020-04-26 19:23] VITALS: BP 89/38
[2020-04-26 19:32] VITALS: BP 116/52
--- NOTE | 2020-04-27 04:22 | NUR ---
ASSUMED CARE OF PT AT 1900. PT IS A/O X4 AND UP AD JOAN. DRESSINGS TO LOWER LEGS ARE DRY AND INTACT WITH NO DRAINAGE. C/O PAIN. PRN PAIN MEDICATION GIVEN DIRECTED. IV IN LEFT ARM INFILTRATED. REMOVED WITH CATHETER INTACT. REPLACED IV. PT IS CURRENTLY IN HIS CHAIR SLEEPING WITH LEGS ELEVATED. VSS. WILL CONTINUE TO MONITOR
[2020-04-27 06:16] LABS: HEMOGLOBIN 11.6 gm/dL (14.0-18.0); MCH 27.7 pg (26.0-34.0); MCV 83.9 fL (80.0-100.0); RBC 4.18 mil/uL (4.50-6.00); RDW 16.1 % (10.5-14.5); WBC 8.9 thou/uL (4.0-11.0)
[2020-04-27 06:45] LABS: CALCIUM 8.3 mg/dL (8.5-10.1); MAGNESIUM 2.1 mg/dL (1.8-2.4); POTASSIUM 4.2 mmol/L (3.5-5.1)
[2020-04-27 07:12] VITALS: BP 113/68
--- NOTE | 2020-04-27 15:05 | NUR ---
ASSUMED CARES AT 0700. PT AWAKE, ALERT AND ORIENTED*4. DENIES PAIN. VITALS STABLE. LS DIMINISHED, SATS STABLE, PT SITTING/SLEEPING ON THE CHAIR THROUGHOUT THE SHIFT. DRESSING ON BLE REMAIN DRY AND INTACT. IV ON LEFT HAND REMAINS INTACT AND PATENT. PT UP AD JOAN. Q1H VISUAL CHECKS. CALL LIGHT WITHIN REACH.
[2020-04-27 19:25] VITALS: BP 125/54
[2020-04-28 03:02] VITALS: BP 144/74
--- NOTE | 2020-04-28 03:48 | NUR ---
PATIENT HAD EMESIS X4 BLOOD NOTED IN THE EMESIS, CALLED POKE IN NEW ORDER OF KUB,URGENT, CHECK OCCULT ON EMESIS, PROTONIX 40 MG BID AND ZOFRAM 4 MG Q 4 HOURS PRN. PATIENT GIVEN ZOFRAN AND WAS EFFECTIVE. BLE LAKEISHA WRAPS ARE C/D/I. PATIENT IN BED ASLEEP AT THIS TIME BREATHING REGULAR AND UNLABOURED.
[2020-04-28 05:38] LABS: HEMATOCRIT 36.4 % (42.0-52.0); HEMOGLOBIN 12.1 gm/dL (14.0-18.0); MCH 27.6 pg (26.0-34.0); MCHC 33.4 g/dL (28.0-37.0); MCV 82.7 fL (80.0-100.0); RBC 4.4 mil/uL (4.50-6.00); RDW 15.5 % (10.5-14.5); WBC 10.8 thou/uL (4.0-11.0)
[2020-04-28 05:58] LABS: CALCIUM 8.7 mg/dL (8.5-10.1); CREATININE 1.1 mg/dL (0.7-1.3); MAGNESIUM 2.1 mg/dL (1.8-2.4); POTASSIUM 4.2 mmol/L (3.5-5.1)
[2020-04-28 08:41] VITALS: BP 143/77
[2020-04-28 15:47] VITALS: BP 131/80
[2020-04-28 16:05] VITALS: BP 131/80
--- NOTE | 2020-04-28 16:29 | NUR ---
PT INDICATED HE WOULD LIKE SERVICES FOR LYMPHEDEMA. [facility] CAN ACCEPT UPON DC. FAX CALL .
--- NOTE | 2020-04-28 17:29 | NUR ---
A/O, calm and cooperative; denied pain. vss, afebrile. Antibiotics administrated. Patient resumed diet and tolerated well. No n/v, no complaint of distress in abdomen area.
[2020-04-28 19:53] VITALS: BP 130/57
[2020-04-29 03:10] VITALS: BP 128/54
--- NOTE | 2020-04-29 03:25 | NUR ---
PATIENT ALERT AND ORIENTED X4. PLEASANT AND COOPERATIVE. SLEPT IN ENID-CHAIR ALL NIGHT PER CHOICE. IVF INFUSING W/O COMPLICATION. UP ADLIB. DRESSINGS TO LOWER LEGS D/I. NO EMESIS DURING THE NIGHT. BS MONITORED PER ORDER. MEDICATED FOR PAIN TO HIS LEFT HAND WHERE IV WAS DISCONTINUED PER AM NURSE. RESTING QUIETLY. WILL MONITOR.
[2020-04-29 05:46] LABS: HEMATOCRIT 37.8 % (42.0-52.0); HEMOGLOBIN 12.5 gm/dL (14.0-18.0); MCH 27.4 pg (26.0-34.0); MCV 83.3 fL (80.0-100.0); RBC 4.54 mil/uL (4.50-6.00); RDW 15.8 % (10.5-14.5)
[2020-04-29 07:43] VITALS: BP 131/76
[2020-04-29 15:06] VITALS: BP 130/73
--- NOTE | 2020-04-29 17:19 | NUR ---
Assumed patient care at 0715. LSCTA, BS x's 4, ABD soft and non-tender. Patient's leg wraps are clean, dry and in place bilaterally. Patient is alert and oriented x's 4, is on Room Air. He has had no adverse reactions related to his IV Antibiotic Therapy. Patient is up ad silvia to the restroom without assistance. New IV placed in upper right inner aspect of arm, as other IV came out. COVID Test completed with much resistance, as patient cried while this nurse completed the procedure. Patient started on a Regular Diet as of lunchtime. He has tolerated whole foods well, has had no nausea and/or vomiting. Will continue to monitor.
[2020-04-29 19:23] VITALS: BP 113/58
--- NOTE | 2020-04-30 02:09 | NUR ---
PATIENT ALERT AND ORIENTED X4. UP ADLIB IN ROOM TO BATHROOM. DENIES PAIN. LEG WRAPS AND D/I. IVF INFUSING W/O COMPLICATION. VANCOMYCIN LEVEL FOR MN DOSE WAS 26. CRITICAL LAB PROTOCOL WAS DONE WITH THIS NURSE SPEAKING TO DR. ELIAS FOR A NEW ORDER WHICH WAS GIVEN. PATIENT IS RESTING QUIETLY. BS MONITORED PER ORDER. WILL MONITOR.
[2020-04-30 05:24] LABS: HEMATOCRIT 39.1 % (42.0-52.0); HEMOGLOBIN 13.2 gm/dL (14.0-18.0); MCHC 33.7 g/dL (28.0-37.0); RBC 4.72 mil/uL (4.50-6.00); RDW 15.9 % (10.5-14.5); WBC 9.9 thou/uL (4.0-11.0)
[2020-04-30 05:51] LABS: CALCIUM 8.8 mg/dL (8.5-10.1); CREATININE 1.1 mg/dL (0.7-1.3); POTASSIUM 4.1 mmol/L (3.5-5.1)
[2020-04-30 08:18] VITALS: BP 127/72
[2020-04-30] MEDS ORDERED: PROTONIX40 M2 PO (09:59)
[2020-04-30] MEDS ORDERED: LEVAQUIN 750 M750 MG PO (09:59)
[2020-04-30 13:50] VITALS: BP 131/80
== END 2020-04-30 16:49 | disposition home health service (06) | DRG 603 ==
LOC: ER 13:04 → 4W 15:26 → EROBS 15:26 → 4W 17:26
PROVIDERS: Emergency Medicine; Hospitalist; ADMIT Internal Medicine; ATTEND Internal Medicine
DX: L03.115 Cellulitis of right lower limb (principal); Z68.45 Body mass index [BMI] 70 or greater, adult; I42.9 Cardiomyopathy, unspecified; E44.1 Mild protein-calorie malnutrition; K92.2 Gastrointestinal hemorrhage, unspecified; I10 Essential (primary) hypertension; E66.01 Morbid (severe) obesity due to excess calories; F41.9 Anxiety disorder, unspecified; E03.9 Hypothyroidism, unspecified; I87.8 Other specified disorders of veins; Z20.828 Contact with and (suspected) exposure to other viral communicable diseases; F32.9 Major depressive disorder, single episode, unspecified; E11.9 Type 2 diabetes mellitus without complications; Z88.1 Allergy status to other antibiotic agents; Z79.899 Other long term (current) drug therapy
CPT/HCPCS: 10040; 10045

== ENCOUNTER 2020-07-07 10:04 | Emergency (ER) | payer BC, OTHER ==
[~2020-07-07] VITALS: Ht 170.2 cm; Wt 226.8 kg
[~2020-07-07 10:04] MED LIST changes: +FUROSEMIDE 20 M20 M1 PO; +LEVAQUIN 750 M750 MG PO; +LISINOPRIL-HCT1 EAC2 PO; +PROTONIX40 M2 PO
[2020-07-07] MEDS ORDERED: KEFLEX500 M1 PO (10:10)
[2020-07-07 11:09] LABS: EOSINOPHILS 2.5 % (0.0-3.0); HEMOGLOBIN 11.8 gm/dL (14.0-18.0); LYMPHOCYTES 13.2 % (24.0-44.0); MCH 27.1 pg (26.0-34.0); MCHC 32.8 g/dL (28.0-37.0); MCV 82.6 fL (80.0-100.0); MONOCYTES 5.2 % (1.0-8.0); PLATELET COUNT 325 thou/uL (150-400); POLYS 78.1 % (36.0-66.0); RBC 4.36 mil/uL (4.50-6.00); RDW 16.8 % (10.5-14.5); WBC 10.2 thou/uL (4.0-11.0)
[2020-07-07 11:11] LABS: CALCIUM 8.6 mg/dL (8.5-10.1); POTASSIUM 4.2 mmol/L (3.5-5.1)
[2020-07-07 11:18] LABS: ALBUMIN 3.3 g/dL (3.4-5.0); DIRECT BILIRUBIN 0.1 mg/dL (<0.1-0.2); TOTAL BILIRUBIN 0.5 mg/dL (0.2-1.0); TOTAL PROTEIN 8.8 g/dL (6.4-8.2)
--- NOTE | 2020-07-07 13:24 | NUR ---
teodoro consulted for assist with needing his leg wrapped at home. pt casie have hh rt works outside home. teodoro spoke with dr dawn, education on going to wound care office for assistance or private duty in home if his dad is unable to assist him. per er dr dillon has limit resources and casie drive or he home care.
[2020-07-07] MEDS ORDERED: MOBIC15 MG PO (13:48)
[2020-07-07 13:49] VITALS: BP 189/76
== END 2020-07-07 13:39 | disposition home or self-care (01) ==
LOC: ER 10:04
PROVIDERS: Emergency Medicine
DX: I89.0 Lymphedema, not elsewhere classified (principal); I10 Essential (primary) hypertension; E66.01 Morbid (severe) obesity due to excess calories; F32.9 Major depressive disorder, single episode, unspecified; F41.9 Anxiety disorder, unspecified; E11.9 Type 2 diabetes mellitus without complications; Z68.45 Body mass index [BMI] 70 or greater, adult; Z79.899 Other long term (current) drug therapy; Z79.2 Long term (current) use of antibiotics; Z88.1 Allergy status to other antibiotic agents

== ENCOUNTER 2020-07-18 11:53 | Inpatient (IN) | payer BC ==
[~2020-07-18] VITALS: Ht 175.3 cm; Wt 217.7 kg
[2020-07-18 12:03] VITALS: BP 205/99
[2020-07-18 12:41] LABS: ABSOLUTE NEUTROPHILS 7.8 thou/uL (1.4-8.2); BASOPHILS 1.5 % (0.0-2.0); EOSINOPHILS 2.1 % (0.0-3.0); HEMATOCRIT 35.4 % (42.0-52.0); HEMOGLOBIN 11.5 gm/dL (14.0-18.0); MCH 26.7 pg (26.0-34.0); MCHC 32.6 g/dL (28.0-37.0); MCV 81.9 fL (80.0-100.0); MONOCYTES 7.5 % (1.0-8.0); PLATELET COUNT 311 thou/uL (150-400); POLYS 72.9 % (36.0-66.0); RBC 4.32 mil/uL (4.50-6.00); WBC 10.8 thou/uL (4.0-11.0)
[2020-07-18 12:43] LABS: CALCIUM 8.8 mg/dL (8.5-10.1); CREATININE 1.2 mg/dL (0.7-1.3); POTASSIUM 3.7 mmol/L (3.5-5.1)
[2020-07-18 12:49] LABS: ALBUMIN 3.4 g/dL (3.4-5.0); DIRECT BILIRUBIN 0.1 mg/dL (<0.1-0.2); TOTAL BILIRUBIN 0.6 mg/dL (0.2-1.0); TOTAL PROTEIN 9.3 g/dL (6.4-8.2)
[2020-07-18 12:58] LABS: URINE BILIRUBIN NEGATIVE (Negative); URINE BLOOD NEGATIVE (Negative); URINE CLARITY CLEAR; URINE COLOR YELLOW; URINE GLUCOSE-RANDOM* NEGATIVE (Negative); URINE KETONES NEGATIVE (Negative); URINE LEUKOCYTES-REFLEX NEGATIVE (Negative); URINE NITRITE-REFLEX NEGATIVE (Negative); URINE PROTEIN (DIPSTICK) NEGATIVE (Negative); URINE UROBILINOGEN 0.2 E.U./dl (0.2-1.0)
[2020-07-18 13:51] VITALS: BP 199/96
[2020-07-18 14:19] VITALS: BP 158/76
[2020-07-18 19:37] VITALS: BP 132/85
--- NOTE | 2020-07-18 21:18 | NUR ---
PT SITTING UP IN LOUNGE CHAIR WATCHING TV. FLUSHED FACE NOT SOA WHEN TALKING. PT REPORTS OFTEN SLEEPING UPRIGHT IN CHAIR BECAUSE LAYING IN THE BED HURTS HIS BLE WOUNDS. PT RECEIVING PRN PAIN MEDS SCHEDULED. IVF PROVIDED. PT DECLINED HS SNACK. INDEPENDENT WITH AMBULATION. LUNGS WITH WHEEZES. BLE WRAPPED IN LAKEISHA WRAP.
--- NOTE | 2020-07-19 00:54 | NUR ---
LAB COVID NEGATIVE, PROVIDER NOTIFIED. BILINGUAL SPEECH LANGUAGE PATHOLOGIST NOTIFIED.
[2020-07-19 05:35] VITALS: BP 150/72
[2020-07-19 07:30] VITALS: BP 144/78
--- NOTE | 2020-07-19 10:56 | NUR ---
INITIAL ASSESSMENT: SW reviewed chart and spoke with nursing and attending physician. Pt was admitted from home due to BLE cellulitis. Pt placed in Enhanced Isolation to r/o COVID-19. Pt's test is negative. Pt to transfer to med/surg when a bed is available. Pt is afebrile and not requiring O2. Pt is on IV abx. SW placed call to pt's room. No answer. SW left voice message on pt's cell phone: [phone]. Per chart, pt is alert/orientated x 4. Pt lives at home and has been independent with ADLs. No use of DME. Pt works at [employer]. Pt has done outpatient lymphedema therapy at [facility] in the past, and also had HH services through [facility] . Pt has been to [facility]. Pt's PCP is Dr. Deven Velez. Plan is for pt to discharge home when medically stable. SW is following to assist as needed with discharge planning.
[2020-07-19 15:36] VITALS: BP 151/77
[2020-07-19 19:00] VITALS: BP 105/59
--- NOTE | 2020-07-19 20:28 | NUR ---
PT RESTING IN LOUNGE CHAIR WATCHING TV ALL LIGHTS ON. PT AMBULATING TO RESTROOM. BLE LYMPHEDEMA WRAPS INTACT. PT PROVIDED HS SNACK. PRN PAIN MEDS PROVIDED ORDERED. PT NOT IN COVID ISOLATION.
--- NOTE | 2020-07-20 00:08 | NUR ---
vanc stopped vanc trough 34 pharmacy notified and med placed on hold.
[2020-07-20 03:19] VITALS: BP 94/46
[2020-07-20 08:10] VITALS: BP 115/61
--- NOTE | 2020-07-20 11:43 | NUR ---
Nutrition: pt admitted with LE cellulitis/venous stasis wounds. PMH: DM, morbid obesity, hypothyroidism, HTN. Lymphedema present, 2+ bilateral legs and generalized edema. BMI 70.9, extreme class 3 obesity with weights > 500# for several years. Weight loss educations have been provided past admits.Currently weight is 280#-pt reported. Eats well, 100% of meals. On lasix, HCTZ, metformin. Past admit BG well controlled, No accuchecks to eval this admit. Consider adding carb controlled to diet order for calorie control. No supplements needed with excellent oral intake. Consider low nutrition risk.
--- NOTE | 2020-07-20 13:04 | NUR ---
ENEDELIA reviewed chart and spoke with nursing and attending physician. Pt's Enhanced Isolation precautions have been discontinued. Pt is afebrile and not requiring O2. Pt is on IV abx. Pt to transfer to med/surg unit when a room is available. SW placed call to pt's room. No answer. ENEDELIA is following to assist as needed with discharge planning.
[2020-07-20 15:35] VITALS: BP 112/60
[2020-07-20 20:05] VITALS: BP 121/56
[2020-07-21 04:55] VITALS: BP 95/38
--- NOTE | 2020-07-21 05:46 | NUR ---
PT ARRIVED FROM ER VIA CART, PLACED IN ROOM 356. ADMISSION ASSESSMENTS COMPLETED. PT REPORTING GENERALIZED PAIN THAT WAS 10/10 PLUS RIGHT HIP PAIN THATS 10/10 "BUT JUST WHEN I'M MOVING IT." NOTED RIGHT HIP HAS RECENT SURGICAL WOUND FROM May. WOUND IS WELL APPROXIMATED WITHOUT REDNESS OR EDEMA. NOTED SOME FLAKING SKIN AT THE SITE. ORDERS IN PROGRESS.
--- NOTE | 2020-07-21 05:54 | NUR ---
PT MAKING SLOW PROGRESS TOWARDS GOALS. GIVEN IV MORPHINE X1 FOR BL LE PAIN WITH PT REPORTING GOOD RELIEF. PAIN WAS 8/10, RELIEF WAS 5/10. GIVEN ONE LORTAB THIS AM FOR 6/10 PAIN AND PRIOR TO GETTING OUT OF BD.
[2020-07-21 07:10] LABS: CALCIUM 8.4 mg/dL (8.5-10.1); CREATININE 1.4 mg/dL (0.7-1.3); POTASSIUM 4.1 mmol/L (3.5-5.1)
[2020-07-21 07:21] VITALS: BP 143/66
--- NOTE | 2020-07-21 13:11 | NUR ---
SW reviewed chart and spoke with nursing and attending physician. Enhanced Isolation precautions have been discontinued. Pt to transfer to med/surg when a room is available. Pt remains on IV abx. Pt may need home IV abx/HH services. Awaiting input from ID. ENEDELIA spoke with pt via phone to discuss possible discharge needs. Pt states he has not had home IV abx in the past, and does not think he would feel comfortable with doing it. SW discussed outpatient infusion v. post-acute placement. Pt states transportation for outpatient would be a challenge for him. Pt has been to [facility] in the past, and states that he would return there, but he has a bill from his previous stay. Pt would be open to looking at other options. ENEDELIA left voice message for Lilian at [facility] to find in-network providers and coverage for post-acute needs. ENEDELIA is following to assist as needed with discharge planning.
[2020-07-21 15:27] VITALS: BP 149/67
--- NOTE | 2020-07-21 17:43 | NUR ---
RN HAS ASSUMED PT'S CARE AT 0700AM, PT IS A&OX3, PT IS CONTIUNING IV ABX, AND PAIN MANAGEMENT , PT GETS UP TO BATH ROOM BY HERSELF, PT'S VS ARE STABLE, PT DENIES SOB AND N/V AT THIS TIME.
[2020-07-21 19:35] VITALS: BP 112/70
[2020-07-22 04:05] VITALS: BP 163/85
--- NOTE | 2020-07-22 06:36 | NUR ---
Keena kaye brown with red in toilet tonight. dr Landis did get a chance to see this. reccommmended to have primary look at his bottom today. back and forth to chair to bed through the night. he stated that his legs and feet achy and stinging pain. wraps stayed on well tonight. morphine helps with pain control. careplan reviewed.
--- NOTE | 2020-07-22 08:10 | HC ---
[facility] [place] [address] CONSULTATION Name: JENNIFER LEDBETTER Room #: 359-P ADM IN M.R.#: [id number] Admission: 07/18/20 Attend Phys: Speedy Pickard MD Discharge: Date of : 89 Report #: [id number] THIS REPORT FOR: cc: Deven Velez MD, Kirk D. MD Althoff, Jeffrey R. MD ~ CC: Deven Pickard DATE OF SERVICE: 07/19/2020 CHIEF COMPLAINT: Bilateral lower extremity cellulitis. HISTORY OF PRESENT ILLNESS: This is a 35-year-old male patient who I saw in the wound clinic yesterday with significant redness, drainage, swelling and ulceration to the lower extremities, more so on the right than the left. The patient has a longstanding history of lymphedema, has had recurring hospitalizations. He has morbid obesity. He likely would benefit from bariatric surgery, but has been having difficulty accessing resources for that. PAST MEDICAL HISTORY: Positive for history of hypertension, morbid obesity, sleep apnea, untreated; anxiety, depression, chronic lymphedema, type 2 diabetes mellitus, a community-acquired pneumonia and cardiomyopathy. SOCIAL HISTORY: Negative for alcohol or tobacco use. FAMILY HISTORY: Noncontributory. REVIEW OF SYSTEMS: CONSTITUTIONAL: The patient denies fever, chills or weight loss. NEUROLOGICAL: The patient denies focal weakness, numbness or tingling. EYES: The patient denies visual changes, redness, or drainage. ENT: The patient denies earache, nasal drainage or sore throat. CARDIOVASCULAR: The patient denies chest pain, palpitations or diaphoresis. PULMONARY: The patient denies cough or shortness of breath. GASTROINTESTINAL: The patient denies nausea, vomiting, diarrhea or abdominal pain. ORTHOPEDIC: The patient complains of pain, swelling, redness, drainage of the lower extremities bilaterally. Other systems in a 14-point review of systems are negative. PHYSICAL EXAMINATION: VITAL SIGNS: At this time include temperature 35.9, pulse 79, respiratory rate 18, blood pressure 144/78. GENERAL: This is a well-developed male patient who appears to be in no distress. [address] [address] CONSULTATION Name: JENNIFER LEDBETTER Room #: 359-P ADM IN .R.#: [id number] Admission: 07/18/20 Attend Phys: Speeyd Pickard MD Discharge: Date of : 89 Report #: [id number] HEENT: Head normocephalic. Nose and throat are clear. NECK: Supple. LUNGS: Clear. HEART: Regular rhythm. ABDOMEN: Bowel sounds present, obese, nontender. EXTREMITIES: Lower extremities demonstrate significant redness, cellulitis, drainage, ulceration both legs, greater on the right than on the left. NEUROLOGIC: The patient is alert and oriented and appropriate. LABORATORY DATA: White blood cell count is 10.8 with hemoglobin 11.5. Sodium 135, potassium 3.7, chloride 99, CO2 of 29, BUN 13, creatinine 1.2, glucose 101. Albumin is 3.4. CLINICAL IMPRESSION: 1. Lymphedema, bilateral lower extremities. 2. Cellulitis and venous type ulcerations, bilateral lower extremities, right greater than left. 3. Super morbid obesity. 4. Cardiomyopathy. 5. Type 2 diabetes mellitus. 6. Obstructive sleep apnea. RECOMMENDATIONS: At this point in time, we will recommend topical Xeroform gauze to the open areas followed by Domenica and elevation of both lower extremities. He will need intravenous antibiotic therapy. Cultures will be taken. We will consult the lymphedema therapist to see him and wrap him. I have recommended elevation of his legs at all times. Once again, would benefit from bariatric surgery, should this be able to be arranged at some point in time, ongoing medical management of cardiomyopathy, type 2 diabetes mellitus and hypothyroidism. I appreciate being asked to see him in consultation. <ELECTRONICALLY SIGNED> By: Terry Preston MD 07/22/20 0810 1153 1402 Terry Preston MD /nt
[2020-07-22 08:30] VITALS: BP 151/88
[2020-07-22 15:25] VITALS: BP 143/67
--- NOTE | 2020-07-22 15:27 | NUR ---
ENEDELIA reviewed chart and spoke with nursing and attending physician. Pt to transfer off of 3W when a bed is available. Pt remains on IV abx. ENEDELIA left another voice message for Lilian at [facility] ([phone] x [phone]) to discuss post-acute providers. Awaiting input from ID regarding possible IV abx. Pt states he would be agreeable with SNF placement if needed. Will need to obtain insurance authorization for post-acute placement. Should pt be agreeable with home/IV infusion services, insurance will need to be verified prior to pt's discharge. ENEDELIA is following to assist as needed with discharge planning.
--- NOTE | 2020-07-22 17:25 | NUR ---
RN HAS ASSUMED PT'S CARE AT 0700AM , PT IS A&OX3, PT IS CONTINUING IV ABX , PAIN MANAGEMENT AND WOUND CARE , RN AND PT HAVE CHANGED PT'S BLE DRESSING , PT'S VS ARE STABLE .
[2020-07-22 20:12] VITALS: BP 154/76
--- NOTE | 2020-07-23 04:35 | NUR ---
LARGE BM MINE WIRER, COATED IN BRIGHT RED JELLY. PO PAIN PILL EFFECTIVE FOR PAIN CONTROL. RESTING QUIETLY TONIGHT. UP TO BR INDEPENDENT, DOES NEED ASSIST WITH WIPING AFTER A BOWEL MOVEMENT.
[2020-07-23 05:11] VITALS: BP 154/86
[2020-07-23 05:36] LABS: HEMATOCRIT 30.5 % (42.0-52.0); HEMOGLOBIN 10.1 gm/dL (14.0-18.0); MCH 27.1 pg (26.0-34.0); MCHC 33.3 g/dL (28.0-37.0); MCV 81.4 fL (80.0-100.0); RBC 3.74 mil/uL (4.50-6.00); WBC 8.3 thou/uL (4.0-11.0)
[2020-07-23 06:01] LABS: CREATININE 1.1 mg/dL (0.7-1.3); POTASSIUM 4.4 mmol/L (3.5-5.1)
[2020-07-23 07:11] VITALS: BP 168/84
[2020-07-23 11:26] VITALS: BP 168/84
--- NOTE | 2020-07-23 11:49 | NUR ---
PT DISCHARGING TODAY TO HOME WITH FAXED REFERRAL TO [id number] SPOKE WITH [employer] ASSOCIATE RN SHE WILL REVIEW PT ON SERVICE WITH THEM IN THE PAST THEY SHOULD MOST LIKELEY ACCEPT. PT TO CHANGE TO PO ABX ON DISCHARGE. FAX DC ORDERS TO [phone] AND CALL [phone]
[2020-07-23] MEDS ORDERED: KLOR-CON 1010 MEQ PO (12:57)
[2020-07-23] MEDS ORDERED: HYDROCODON-ACE1 EAC7 PO (12:57)
[2020-07-23] MEDS ORDERED: CEFDINIR300 MG PO (12:57)
[2020-07-23] MEDS ORDERED: NEURONTIN 300M300 M2 PO (12:57)
[2020-07-23] MEDS ORDERED: HYDROCHLOROTHIA25 M1 PO (12:57)
--- NOTE | 2020-07-23 13:08 | NUR ---
RN HAS ASSUMED PT'S CARE AT 0700AM, PT IS A&OX3, PT IS CONTINUING IV ABX AND WOUND CARE , PT 'S VS ARE STABLE, PT DOES DOT HAVE SOB AND N/V , PT'S BLE CELLULITIS HAVE IMPROVED, PT GETS UP TO CHAIR AND BATH ROOM WITHOUT ASSIST, RN HAS RECEIVED ORDER TO DC PT TO HOME WITH HOME HEALTH , ENEDELIA HAS CONTACTED PT'S HOME HEALTH , RN HAS CALLED NICOLAS NGUYEN ABOUT PT'S ABX , NICOLAS NGUYEN IS AGREEN TO CHANGE IV ABX TO PO MEDICATION, PT IS GETTING IV ABX DOSE NOW, PT DENIES PAIN AT THIS TIME, PT'S FAMILY WILL ROOFING TILE SORTER PT TO HOME ABOUT 1630PM.
[2020-07-23 15:20] VITALS: BP 140/67
--- NOTE | 2020-07-23 16:44 | NUR ---
RN HAS GIVING DC TEACHING TO PT , INCLUDING WOUND CARE , MEDICATIONS AND HOME HEALTH TEACHING , PT UNDERSTANDS WELL , PT'S MONTHER PICKS UP PT TO HOME AT 1640PM.
== END 2020-07-23 16:40 | disposition home health service (06) | DRG 603 ==
LOC: ER 11:53 → 3W 13:25 → EROBS 13:25 → 3W 14:19
PROVIDERS: Nurse Practitioner; ADMIT Internal Medicine; ATTEND Internal Medicine
DX: L03.116 Cellulitis of left lower limb (principal); Z68.45 Body mass index [BMI] 70 or greater, adult; K92.1 Melena; I42.9 Cardiomyopathy, unspecified; E44.1 Mild protein-calorie malnutrition; L97.929 Non-pressure chronic ulcer of unspecified part of left lower leg with unspecified severity; L97.919 Non-pressure chronic ulcer of unspecified part of right lower leg with unspecified severity; L03.115 Cellulitis of right lower limb; E66.01 Morbid (severe) obesity due to excess calories; I89.0 Lymphedema, not elsewhere classified; E11.9 Type 2 diabetes mellitus without complications; G47.33 Obstructive sleep apnea (adult) (pediatric); I50.9 Heart failure, unspecified; I11.0 Hypertensive heart disease with heart failure; E03.9 Hypothyroidism, unspecified; I87.8 Other specified disorders of veins; F32.9 Major depressive disorder, single episode, unspecified; F41.9 Anxiety disorder, unspecified; K64.9 Unspecified hemorrhoids; Z20.828 Contact with and (suspected) exposure to other viral communicable diseases; Z87.01 Personal history of pneumonia (recurrent); Z79.84 Long term (current) use of oral hypoglycemic drugs; Z79.899 Other long term (current) drug therapy; Z88.8 Allergy status to other drugs, medicaments and biological substances
CPT/HCPCS: 10080

== ENCOUNTER → 2020-07-18 | Outpatient (CLI) | payer BC ==
[~2020-07-18] MED LIST changes: +MOBIC15 MG PO
== END ==
LOC: HYPER 10:17
PROVIDERS: ATTEND Emergency Medicine Emergency Medical Services
DX: L03.115 Cellulitis of right lower limb (principal); L03.116 Cellulitis of left lower limb; I89.0 Lymphedema, not elsewhere classified; E66.01 Morbid (severe) obesity due to excess calories; E03.9 Hypothyroidism, unspecified; G47.30 Sleep apnea, unspecified; I10 Essential (primary) hypertension; K21.9 Gastro-esophageal reflux disease without esophagitis; F41.9 Anxiety disorder, unspecified; F32.9 Major depressive disorder, single episode, unspecified; Z68.45 Body mass index [BMI] 70 or greater, adult

== ENCOUNTER → 2020-08-15 | Outpatient (CLI) | payer BC ==
[~2020-08-15] MED LIST changes: +CEFDINIR300 MG PO; +HYDROCODON-ACE1 EAC7 PO; +KLOR-CON 1010 MEQ PO; +NEURONTIN 300M300 M2 PO
== END ==
LOC: HYPER 10:00
PROVIDERS: ATTEND Emergency Medicine Emergency Medical Services
DX: L97.222 Non-pressure chronic ulcer of left calf with fat layer exposed (principal); L03.116 Cellulitis of left lower limb; L03.115 Cellulitis of right lower limb; L84 Corns and callosities; I89.0 Lymphedema, not elsewhere classified; I10 Essential (primary) hypertension; E66.01 Morbid (severe) obesity due to excess calories; E03.9 Hypothyroidism, unspecified; G47.30 Sleep apnea, unspecified; K21.9 Gastro-esophageal reflux disease without esophagitis; F41.9 Anxiety disorder, unspecified; F32.9 Major depressive disorder, single episode, unspecified; Z68.45 Body mass index [BMI] 70 or greater, adult

== ENCOUNTER → 2020-09-12 | Outpatient (CLI) | payer BC | LOC: HYPER 10:48 | PROVIDERS: ATTEND Emergency Medicine Emergency Medical Services | DX: L97.222 Non-pressure chronic ulcer of left calf with fat layer exposed (principal); L97.211 Non-pressure chronic ulcer of right calf limited to breakdown of skin; L03.115 Cellulitis of right lower limb; L03.116 Cellulitis of left lower limb; L84 Corns and callosities; I89.0 Lymphedema, not elsewhere classified; E66.01 Morbid (severe) obesity due to excess calories; E03.9 Hypothyroidism, unspecified; G47.30 Sleep apnea, unspecified; I10 Essential (primary) hypertension; K21.9 Gastro-esophageal reflux disease without esophagitis; F41.9 Anxiety disorder, unspecified; F32.9 Major depressive disorder, single episode, unspecified; Z68.45 Body mass index [BMI] 70 or greater, adult ==

== ENCOUNTER → 2020-10-10 | Outpatient (CLI) | payer BC | LOC: HYPER 09:00 | PROVIDERS: ATTEND Emergency Medicine Emergency Medical Services | DX: L97.222 Non-pressure chronic ulcer of left calf with fat layer exposed (principal); L97.211 Non-pressure chronic ulcer of right calf limited to breakdown of skin; L03.115 Cellulitis of right lower limb; L03.116 Cellulitis of left lower limb; L84 Corns and callosities; I89.0 Lymphedema, not elsewhere classified; E66.01 Morbid (severe) obesity due to excess calories; E03.9 Hypothyroidism, unspecified; G47.30 Sleep apnea, unspecified; I10 Essential (primary) hypertension; K21.9 Gastro-esophageal reflux disease without esophagitis; F41.9 Anxiety disorder, unspecified; F32.9 Major depressive disorder, single episode, unspecified; Z68.45 Body mass index [BMI] 70 or greater, adult ==

== ENCOUNTER → 2020-11-21 | Outpatient (CLI) | payer BC | LOC: HYPER 15:09 | PROVIDERS: ATTEND Emergency Medicine | DX: I87.333 Chronic venous hypertension (idiopathic) with ulcer and inflammation of bilateral lower extremity (principal); L97.222 Non-pressure chronic ulcer of left calf with fat layer exposed; L97.211 Non-pressure chronic ulcer of right calf limited to breakdown of skin; L97.812 Non-pressure chronic ulcer of other part of right lower leg with fat layer exposed; L03.115 Cellulitis of right lower limb; L03.116 Cellulitis of left lower limb; L84 Corns and callosities; I89.0 Lymphedema, not elsewhere classified; E66.01 Morbid (severe) obesity due to excess calories; E03.9 Hypothyroidism, unspecified; G47.30 Sleep apnea, unspecified; I10 Essential (primary) hypertension; K21.9 Gastro-esophageal reflux disease without esophagitis; F41.9 Anxiety disorder, unspecified; F32.9 Major depressive disorder, single episode, unspecified; Z68.45 Body mass index [BMI] 70 or greater, adult ==

== ENCOUNTER → 2021-01-02 | Outpatient (CLI) | payer BC | LOC: HYPER 14:26 | PROVIDERS: ATTEND Emergency Medicine | DX: I87.333 Chronic venous hypertension (idiopathic) with ulcer and inflammation of bilateral lower extremity (principal); L97.222 Non-pressure chronic ulcer of left calf with fat layer exposed; L97.212 Non-pressure chronic ulcer of right calf with fat layer exposed; L97.812 Non-pressure chronic ulcer of other part of right lower leg with fat layer exposed; L03.115 Cellulitis of right lower limb; L03.116 Cellulitis of left lower limb; L84 Corns and callosities; I89.0 Lymphedema, not elsewhere classified; E66.01 Morbid (severe) obesity due to excess calories; E03.9 Hypothyroidism, unspecified; G47.30 Sleep apnea, unspecified; I10 Essential (primary) hypertension; K21.9 Gastro-esophageal reflux disease without esophagitis; F41.9 Anxiety disorder, unspecified; F32.9 Major depressive disorder, single episode, unspecified; Z68.45 Body mass index [BMI] 70 or greater, adult ==

== ENCOUNTER → 2021-03-20 | Outpatient (CLI) | payer BC | LOC: HYPER 07:53 | PROVIDERS: ATTEND Emergency Medicine Emergency Medical Services | DX: I87.333 Chronic venous hypertension (idiopathic) with ulcer and inflammation of bilateral lower extremity (principal); L97.222 Non-pressure chronic ulcer of left calf with fat layer exposed; L97.212 Non-pressure chronic ulcer of right calf with fat layer exposed; L97.812 Non-pressure chronic ulcer of other part of right lower leg with fat layer exposed; L03.115 Cellulitis of right lower limb; L03.116 Cellulitis of left lower limb; L84 Corns and callosities; I89.0 Lymphedema, not elsewhere classified; R60.0 Localized edema; E66.01 Morbid (severe) obesity due to excess calories; E02 Subclinical iodine-deficiency hypothyroidism; G47.30 Sleep apnea, unspecified; I10 Essential (primary) hypertension; K21.9 Gastro-esophageal reflux disease without esophagitis; F41.9 Anxiety disorder, unspecified; F32.9 Major depressive disorder, single episode, unspecified; Z68.45 Body mass index [BMI] 70 or greater, adult ==

== ENCOUNTER 2021-04-10 11:17 | Inpatient (IN) | payer BC ==
--- NOTE | ~2021-04-10 | HC ---
[facility] [place] [address] CONSULTATION Name: JENNIFER LEDBETTER Room #: 435-P ADM IN M.R.#: [id number] Admission: 04/10/21 Attend Phys: Jody Augustine MD Discharge: Date of : 89 Report #: [id number] THIS REPORT FOR: cc: FAM - Family physician unknown FAM - Family physician unknown Jaydon Sheldon MD ~ DOC #: [id number] Jaydon Sheldon MD HISTORY OF PRESENT ILLNESS: The patient is a 35-year-old male with severe morbid obesity, prediabetic, bilateral lower extremity lymphedema, chronic lower extremity wounds, admitted with bilateral infected lower extremity cellulitis and lymphedema. He is admitted from the Wound Care Clinic. He was seen by Infectious Disease, started to have a multifactorial presentation to his lower extremity infectious process. He is on the IV antibiotics. We are seeing him in rehabilitation medicine consultation. PAST MEDICAL HISTORY: Includes obstructive sleep apnea, not on CPAP secondary to insurance authorization per report. He has morbid obesity, 5 feet 7 inches, 570 pounds. SOCIAL HISTORY: Lives in an apartment alone. His father in January. 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 He rides in with his mom to work. She helps him with his laundry. She apparently helps him some fitting his shoes on as well. REVIEW OF SYSTEMS: No current complaints of chest pain, shortness of breath, or abdominal discomfort. PHYSICAL EXAMINATION: GENERAL: A 35-year-old morbidly obese white male in no obvious distress. VITAL SIGNS: Temperature 36.8, pulse 85, respirations 18, blood pressure 158/84. HEENT: Dentition appears poor. NEUROLOGIC: He is alert, pleasant, follows basic commands. Facies appeared symmetric. MUSCULOSKELETAL: He has functional range of motion of both upper extremities appears to have functional strength. ABDOMEN: He has a large pannus on examination of his abdomen. EXTREMITIES: Lower extremities, he has lymphedema with bilateral lower extremities wrapped knees to ankles. He can dorsiflex both feet. He is able to lift both legs up off the bed. Functionally, he has been ambulatory in the room up ad silvia gait without assistive device. He is needing assistance with shoes and socks, which is at his baseline and he tends to slide his feet into his shoes. Occupational therapy thought he was at his baseline and has discharged him. Physical therapy was declined by him as he is basically ad silvia in his room. [address] [address] CONSULTATION Name: CECI LEDBETTERSHUA ARCHIE Room #: 435-P [facility] IN ..#: [id number] Admission: 04/10/21 Attend Phys: Jody Augustine MD Discharge: Date of : 89 Report #: [id number] IMPRESSION: A 35-year-old male with the following problem list: 1. Bilateral lower extremity cellulitis with lymphedema. 2. Chronic lower extremity wounds. 3. Super morbid obesity. 4. Prediabetes mellitus. 5. Obstructive sleep apnea. PLAN: The patient is actually too high level to warrant an acute [address] [place] [address] inpatient rehabilitation stay. He is getting up by himself in the room and is at his premorbid functional level per occupational therapy. Would anticipate he should be able to return back to the home setting as he further medically stabilizes. Thank you for asking us to assist in this patient's care. Jaydon Sheldon MD DGColton/BRIAN By: 1123 aJydon Sheldon MD /nt
[~2021-04-10 11:17] MED LIST changes: -AUGMENTIN 875-1 EACH PO
[2021-04-10 14:12] LABS: HEMATOCRIT 33.6 % (42.0-52.0); HEMOGLOBIN 10.9 gm/dL (14.0-18.0); MCH 26.8 pg (26.0-34.0); MCHC 32.5 g/dL (28.0-37.0); MCV 82.7 fL (80.0-100.0); RBC 4.06 mil/uL (4.50-6.00); RDW 17.3 % (10.5-14.5); WBC 12.8 thou/uL (4.0-11.0)
[2021-04-10 14:28] LABS: CALCIUM 8.5 mg/dL (8.5-10.1); CREATININE 1.1 mg/dL (0.7-1.3); POTASSIUM 3.6 mmol/L (3.5-5.1)
[2021-04-10 14:53] LABS: CHOLESTEROL 123 mg/dL (<200); HDL CHOLESTEROL 36 mg/dL (>40); LDL CHOLESTEROL 70 mg/dL (<100); TC:HDL 3.4 Ratio (Not establshd); TRIGLYCERIDE 86 mg/dL (<150); VLDL 17 mg/dL (<40)
[2021-04-10 15:07] LABS: FOLIC ACID 11.3 ng/mL (8.6-58.9)
[2021-04-10 15:23] VITALS: BP 140/74
[2021-04-10 18:15] VITALS: BP 130/64
[2021-04-10 20:05] VITALS: BP 115/66
[2021-04-11 03:46] VITALS: BP 158/87
[2021-04-11 05:50] LABS: ALBUMIN 2.8 g/dL (3.4-5.0); CALCIUM 7.7 mg/dL (8.5-10.1); CREATININE 0.9 mg/dL (0.7-1.3); TOTAL BILIRUBIN 0.8 mg/dL (0.2-1.0); TOTAL PROTEIN 7.6 g/dL (6.4-8.2)
[2021-04-11 05:58] LABS: POTASSIUM 4.6 mmol/L (3.5-5.1)
[2021-04-11 07:15] VITALS: BP 158/84
[2021-04-11 12:10] LABS: BE(vivo) 2.1 mmol/L (-2 to +3); HCO3 27.1 mmol/L (22.0-26.0); PCO2 43.9 mmHg (35.0-45.0); pH 7.408 (7.360-7.450); sO2 94.6 % (92.0-98.0)
[2021-04-11 16:32] VITALS: BP 156/91
[2021-04-11 19:00] VITALS: BP 139/66
[2021-04-12 05:30] LABS: HEMATOCRIT 31.7 % (42.0-52.0); HEMOGLOBIN 10.6 gm/dL (14.0-18.0); MCH 27.2 pg (26.0-34.0); MCHC 33.5 g/dL (28.0-37.0); MCV 81.4 fL (80.0-100.0); RBC 3.9 mil/uL (4.50-6.00); RDW 16.8 % (10.5-14.5); WBC 8.6 thou/uL (4.0-11.0)
[2021-04-12 06:00] LABS: CALCIUM 8.1 mg/dL (8.5-10.1); POTASSIUM 4.5 mmol/L (3.5-5.1)
[2021-04-12 07:15] VITALS: BP 160/94
--- NOTE | 2021-04-12 11:31 | HC ---
[facility] [place] [address] CONSULTATION Name: JENNIFER LEDBETTER Room #: 435-P ADM IN M.R.#: [id number] Admission: 04/10/21 Attend Phys: Jody Augustine MD Discharge: Date of : 89 Report #: [id number] THIS REPORT FOR: cc: FAM - Family physician unknown FAM - Family physician unknown Francesco Smith MD ~ DOC #: [id number] Francesco Smith MD ATTENDING PHYSICIAN: Dr. Augustine. REASON FOR EVALUATION: Bilateral lower extremity inflammatory eruptions likely multifactorial including lymphedema, venous stasis insufficiency and a component of skin and soft tissue infection with cellulitis. Does have chronic wounds. HISTORY OF PRESENT ILLNESS: Chart reviewed. The patient examined. A 35-year-old known to our service, morbidly obese, who is frequently admitted to the hospital with same situation, had been followed by the wound care center and was referred due to increased inflammation associated with the lower extremities in addition to have some dyspnea. It is not clear that he has had fevers. Admits some cyclical feeling of hot and cold including chills. Initial evaluation noted mildly elevated white count, slightly elevated D-dimer. Chest x-ray showed cardiomegaly with mild pulmonary venous congestion. Lower extremity venous Doppler showed no evidence of DVT. Due to a history, he was empirically started on combination therapy with piperacillin and vancomycin, former was continued. Review of previous cultures again dating back several months. There is polymicrobial growth including mixed gram-negative and gram-positive. ALLERGIES: CLINDAMYCIN. CURRENT MEDICATIONS: Include potassium chloride, furosemide, hydrochlorothiazide, levothyroxine, gabapentin, escitalopram, enoxaparin, Zosyn, metformin, hydrocodone, zolpidem, acetaminophen p.r.n. and ondansetron. PAST MEDICAL HISTORY: As described above, hypothyroidism, history of obstructive sleep apnea, hypertension, anemia, cardiomyopathy, depression, anxiety, morbid obesity, prediabetes. SOCIAL HISTORY: Nonsmoker, no ethanol, no illicit drug use. FAMILY HISTORY: Noncontributory. REVIEW OF SYSTEMS: Otherwise, unremarkable 10-point review of systems. PHYSICAL EXAMINATION: [facility] [address] [place] [address] CONSULTATION Name: LEDBETTERJENNIFERLINDA ALMANZA Room #: 435-P [facility] IN [facility].#: [id number] Admission: 04/10/21 Attend Phys: Jody Augustine MD Discharge: Date of : 89 Report #: [id number] GENERAL: He is alert, cooperative. As noted above, morbidly obese. He is generally lucid. VITAL SIGNS: Temperature 98.2, pulse 85, respirations 18, blood pressure 158/84. SKIN: Warm, dry, no rashes. HEENT: Normocephalic. Does have poor dentition. NECK: Thick. LUNGS: Diminished breath sounds. Few scattered crackles. HEART: Distant, regular. I do not appreciate a murmur. ABDOMEN: Large pannus. It is firm, nontender. EXTREMITIES: Bilateral lower extremities have compression dressings. GENITOURINARY AND RECTAL: Deferred. LABORATORY DATA: Electrolytes: Sodium 138, potassium 4.6, chloride 102, bicarbonate 25, anion gap of 11, BUN and creatinine 12 and 0.9, glucose of 127, albumin of 2.8, total protein 7.6. LFTs unremarkable. Venous Dopplers show no evidence of DVT. Chest x-ray as noted above, cardiomegaly, possible increased vascular congestion. TSH of 2.578. D-dimer 1.96. CBC: White count of 12.8, H and H 10.9 and 33.6, platelets of 273. ASSESSMENT: Bilateral lower extremity inflammatory eruptions suspect component of skin and soft tissue infection. Continue empiric therapy with Zosyn based on previous cultures. At this point, is not overtly toxic, continue wound care as prescribed including elevation and compression. In terms of the dyspnea, I think it is less likely he has any sort of pneumonitis due to an infectious cause, may be more typical of pulmonary edema in the setting of cardiomyopathy. He does remain tenuous, continue to monitor expectantly. MD SHEMAR Pizarro/FANY/GALILEO <ELECTRONICALLY SIGNED> By: Francesco Smith MD 04/12/21 1131 1014 22 Francesco Smith MD /nt
--- NOTE | 2021-04-12 11:37 | 2DMMODE ---
[facility] [place] [address] 2 D/M-MODE ECHOCARDIOGRAM Name: JENNIFER LEDBETTER Room #: 435-P ADM IN M.R.#: [id number] Admission: 04/10/21 Attend Phys: Jody Augustine MD Discharge: Date of : 89 Report #: [id number] THIS REPORT FOR: cc: FAM - Family physician unknown FAM - Family physician unknown Mac Rich MD ~ APPROVED REPORT Study performed: 04/12/2021 10:15:26 EXAM: Comprehensive 2D, Doppler, and color-flow Echocardiogram Patient Location: In-Patient Room #: 435 Status: routine BSA: 3.16 Rhythm: NSR Other Information Study Quality: Technically Limited Indications Congestive Heart Failure Dyspnea Obese 2D Dimensions IVSd: 8.49 (7-11mm) LVDd: 44.36 mm PWd: 18.05 (7-11mm) LVDs: 30.55 (25-40mm) Pulmonary Valve PV Peak Carl.: 1.28 m/s PV Peak Gr.: 6.51 mmHg Tricuspid Valve TR Peak Carl.: 1.50 m/s TR Peak Gr.: 9.00 mmHg Left Ventricle The left ventricle is normal size. There is normal LV segmental wall motion. Mild concentric left ventricular hypertrophy. Left ventricular systolic function is normal. The left ventricular ejection fraction is within the normal range. LVEF is 55-60%. This [facility] [place] [address] 2 D/M-MODE ECHOCARDIOGRAM Name: JENNIFER LEDBETTER Room #: 435-P ADM IN M.R.#: [id number] Admission: 04/10/21 Attend Phys: Jody Augustine MD Discharge: Date of : 89 Report #: [id number] study is not technically sufficient to allow evaluation of the LV diastolic function. Right Ventricle The right ventricle is normal size. The right ventricular systolic function is normal. Atria The left atrium size is normal. The right atrium size is normal. Aortic Valve The aortic valve is not well visualized. No aortic regurgitation is present. There is no aortic valvular stenosis. Mitral Valve The mitral valve is normal in structure. There is no mitral valve regurgitation noted. No evidence of mitral valve stenosis. Tricuspid Valve The tricuspid valve is normal in structure. Trace to mild tricuspid regurgitation. Unable to assess PA pressure. Pulmonic Valve Pulmonic valve is not well visualized. There is no pulmonic valvular regurgitation. Great Vessels Aortic root is not well visualized. Descending aorta is not well visualized. IVC is normal in size and collapses >50% with inspiration. Pericardium There is no pericardial effusion. There is no pleural effusion. <Conclusion> The left ventricle is normal size. Mild concentric left ventricular hypertrophy. LVEF is 55-60%. The left atrium size is normal. The right atrium size is normal. The aortic valve is not well visualized. The mitral valve is normal in structure. The tricuspid valve is normal in structure. Trace to mild tricuspid regurgitation. [facility] [address] [place] [address] 2 D/M-MODE ECHOCARDIOGRAM Name: ANATOLYJENNIFER ARCHIE Room #: 435-P ADM IN M.R.#: [id number] Admission: 04/10/21 Attend Phys: Jody Augustine MD Discharge: Date of : 89 Report #: [id number] Unable to assess PA pressure. Pulmonic valve is not well visualized. Aortic root is not well visualized. There is no pericardial effusion. <ELECTRONICALLY SIGNED> By: Mac Rich MD 04/12/21 1137 1137 1137 Mac Rich MD /INF
[2021-04-12 16:10] VITALS: BP 155/87
[2021-04-12 19:03] VITALS: BP 127/64
[2021-04-13 03:55] VITALS: BP 157/84
[2021-04-13 07:30] VITALS: BP 159/91
[2021-04-13 15:33] VITALS: BP 142/83
[2021-04-13 20:04] VITALS: BP 119/63
[2021-04-13 21:04] VITALS: BP 119/63
[2021-04-14 05:05] LABS: HEMATOCRIT 36.4 % (42.0-52.0); HEMOGLOBIN 11.9 gm/dL (14.0-18.0); MCH 26.9 pg (26.0-34.0); MCHC 32.7 g/dL (28.0-37.0); MCV 82.2 fL (80.0-100.0); RBC 4.43 mil/uL (4.50-6.00); WBC 10.3 thou/uL (4.0-11.0)
[2021-04-14 05:40] LABS: CALCIUM 8.7 mg/dL (8.5-10.1); CREATININE 1.2 mg/dL (0.7-1.3); POTASSIUM 4.4 mmol/L (3.5-5.1)
[2021-04-14 06:18] VITALS: BP 135/69
[2021-04-14 07:10] VITALS: BP 143/95
[2021-04-14] MEDS ORDERED: AUGMENTIN 875-1 EACH PO (12:17)
[2021-04-14 13:42] VITALS: BP 143/95
== END 2021-04-14 14:05 | disposition home or self-care (01) | DRG 603 ==
LOC: 4S 11:17
PROVIDERS: Hospitalist; Internal Medicine Pulmonary Disease; ADMIT Internal Medicine; ATTEND Internal Medicine
DX: L03.116 Cellulitis of left lower limb (principal); I42.9 Cardiomyopathy, unspecified; L97.929 Non-pressure chronic ulcer of unspecified part of left lower leg with unspecified severity; E44.0 Moderate protein-calorie malnutrition; L97.919 Non-pressure chronic ulcer of unspecified part of right lower leg with unspecified severity; E66.01 Morbid (severe) obesity due to excess calories; L03.115 Cellulitis of right lower limb; G47.33 Obstructive sleep apnea (adult) (pediatric); S81.802A Unspecified open wound, left lower leg, initial encounter; S81.801A Unspecified open wound, right lower leg, initial encounter; R73.03 Prediabetes; E03.9 Hypothyroidism, unspecified; F32.9 Major depressive disorder, single episode, unspecified; F41.9 Anxiety disorder, unspecified; I87.8 Other specified disorders of veins; I87.2 Venous insufficiency (chronic) (peripheral); Z68.45 Body mass index [BMI] 70 or greater, adult; X58.XXXA Exposure to other specified factors, initial encounter; Y93.89 Activity, other specified; Y92.89 Other specified places as the place of occurrence of the external cause; Y99.8 Other external cause status; Z88.1 Allergy status to other antibiotic agents
CPT/HCPCS: 10102

== ENCOUNTER → 2021-04-10 | Outpatient (CLI) | payer BC ==
[~2021-04-10] MED LIST changes: +AUGMENTIN 875-1 EACH PO
== END ==
LOC: HYPER 07:45
PROVIDERS: ATTEND Emergency Medicine Emergency Medical Services
DX: I87.333 Chronic venous hypertension (idiopathic) with ulcer and inflammation of bilateral lower extremity (principal); L97.222 Non-pressure chronic ulcer of left calf with fat layer exposed; L97.212 Non-pressure chronic ulcer of right calf with fat layer exposed; L97.812 Non-pressure chronic ulcer of other part of right lower leg with fat layer exposed; L03.115 Cellulitis of right lower limb; L03.116 Cellulitis of left lower limb; L84 Corns and callosities; I89.0 Lymphedema, not elsewhere classified; R60.0 Localized edema; E66.01 Morbid (severe) obesity due to excess calories; E02 Subclinical iodine-deficiency hypothyroidism; G47.30 Sleep apnea, unspecified; I10 Essential (primary) hypertension; K21.9 Gastro-esophageal reflux disease without esophagitis; F41.9 Anxiety disorder, unspecified; F32.9 Major depressive disorder, single episode, unspecified; Z68.45 Body mass index [BMI] 70 or greater, adult

== ENCOUNTER 2021-05-02 15:41 | Inpatient (IN) | payer BC ==
[~2021-05-02] VITALS: Ht 170.2 cm; Wt 222.3 kg
[~2021-05-02 15:41] MED LIST changes: +AUGMENTIN 875-1 EACH PO
[2021-05-02 16:14] VITALS: BP 150/87
[2021-05-02 17:51] LABS: ABSOLUTE NEUTROPHILS 10.7 thou/uL (1.4-8.2); EOSINOPHILS 1.9 % (0.0-3.0); HEMATOCRIT 40.7 % (42.0-52.0); LYMPHOCYTES 11.9 % (24.0-44.0); MCH 26.4 pg (26.0-34.0); MCHC 31.9 g/dL (28.0-37.0); MCV 82.9 fL (80.0-100.0); MONOCYTES 7.6 % (1.0-8.0); PLATELET COUNT 252 thou/uL (150-400); POLYS 77.6 % (36.0-66.0); RBC 4.91 mil/uL (4.50-6.00); RDW 17.6 % (10.5-14.5); WBC 13.8 thou/uL (4.0-11.0)
[2021-05-02 17:55] LABS: CALCIUM 8.9 mg/dL (8.5-10.1); POTASSIUM 3.8 mmol/L (3.5-5.1)
[2021-05-02 18:01] LABS: ALBUMIN 3.9 g/dL (3.4-5.0); TOTAL BILIRUBIN 1.1 mg/dL (0.2-1.0); TOTAL PROTEIN 9.3 g/dL (6.4-8.2)
[2021-05-02 19:36] VITALS: BP 134/57
[2021-05-02 19:58] VITALS: BP 148/65
[2021-05-02 20:23] VITALS: BP 177/91
--- NOTE | 2021-05-02 22:26 | NUR ---
PT ADMITTED TO THE UNIT AT APPROXIMATELY 2014. PT IS A/O X4 AND IS UP WITH SBA TO THE BR. ROOM AIR. VSS. AFEBRILE. C/O PAIN TO LE. PRN PAIN MEDICATION GIVEN. ADMISSION COMPLETED. EDUCATED PT ON USE OF CALL LIGHT AND BED CONTROLS. C/O BEING HUNGRY. PROVIDED TURKEY SANDWICH LUNCH BOX. PARTIAL RELIEF NOTED TO LEG PAIN. MEDICATIONS GIVEN PER DEC. CALL LIGHT IS WITHIN REACH.
[2021-05-03 04:28] LABS: HEMATOCRIT 34.3 % (42.0-52.0); HEMOGLOBIN 11.3 gm/dL (14.0-18.0); MCH 27.2 pg (26.0-34.0); MCHC 32.8 g/dL (28.0-37.0); MCV 82.9 fL (80.0-100.0); RBC 4.14 mil/uL (4.50-6.00); WBC 8.4 thou/uL (4.0-11.0)
[2021-05-03 05:04] VITALS: BP 134/70
[2021-05-03 08:19] VITALS: BP 142/71
--- NOTE | 2021-05-03 10:39 | NUR ---
ASSUMED PT CARE THIS AM. PT IS ALERT & ORIENTED X4. PT HAS IV SITE ON R FA 20 GAUGE. PT IS UP AD JOAN. PT IS ON ROOM AIR. PT HAS BILATERAL LE CELLULITIS. PT C/O OF PAIN AND GIVEN PAIN MEDICATION PER PT REQUEST. NO C/O OF NAUSEA AND VOMITING. EDUCATED AND INFORMED PT TO SIT ON THE CHAIR AND ELEVATED THE LEGS. SENT CS MESSAGE REGARDING BARIATRIC BED DR ORDERED. PT TOLERATED MEDICATION AND DIET. WILL CONTINUE TO MONITOR PT. FOLLOW POC.
--- NOTE | 2021-05-03 14:56 | NUR ---
ASSESSMENT: CM REVIEWED CHART AND MET WITH PATIENT AT THE BEDSIDE. PT IS ALERT AND ORIENTED X4. PT REPORTS THAT HE LIVES IN AN APT ALONE. PT WAS ADMITTED DUE TO CELLULITIS AND IS CURRENTLY ON IV ANBX. PT REPORTS THAT HE HAS A COUPLE OF STEPS TO ENTER HIS APT WITH A HINDGE HE CAN GRAB ONTO. PT REPORTS THAT HE HAS HAD [facility] IN THE PAST WELL BEEN TO [facility] AND [facility] 1-2 YEARS AGO. PT HAS BEEN SEEN IN THE PAST OUTPATIENT FOR LYMPHEDEMA WRAPPING. PT REPORTS HE DOES NOT USE ANY DME AT HOME. PT STATES HIS MOTHER IS SUPPORTIVE AND COMES TO HELP HIM GET DRESSED AND WITH ADLS AND ERRANDS. CM WILL CONTINUE TO FOLLOW TO ASSIST NEEDED.
[2021-05-03 17:33] VITALS: BP 116/65
[2021-05-03 19:30] VITALS: BP 134/77
--- NOTE | 2021-05-04 03:10 | NUR ---
ASSUMED PT CARE AT 1910. PT WAS LYING IN BED WATCHING TV. PT WAS ALERT AND ORIENTED X 4. INTRODUCED SELF TO PT. PT WAS PLEASANT AND INTERACTIVE. WHITE BOARD WAS UPDATED. PT'S BARIATRIC BED BECAME FAULTY AND WAS NOT ABLE TO INFLATE DURING THIS SHIFT AND AN ORDER WAS PLACED FOR IT TO BE FIXED. PT HAS BLISTERS ON LY LLE.PT SLEPT IN RECLINER AND WAS ABLE TO USE TO BR WITHOUT ASSISTANCE. CALL LIGHT WAS WITHIN REACH.
[2021-05-04 07:38] LABS: ALBUMIN 3.3 g/dL (3.4-5.0); CALCIUM 8.4 mg/dL (8.5-10.1); CREATININE 1.2 mg/dL (0.7-1.3); PHOSPHORUS 4.3 mg/dL (2.6-4.7); POTASSIUM 3.9 mmol/L (3.5-5.1)
[2021-05-04 08:40] VITALS: BP 146/87
--- NOTE | 2021-05-04 09:49 | NUR ---
ASSUMED PT CARE THIS AM. PT IS ALERT & ORIENTED X4. PT HAS IV SITE ON R FA 20 GAUGE. PT IS UP AD JOAN. PT IS ON ROOM AIR. CALLED WOUND CONSULT THIS AM PER DR DIEGO. EDUCATED AND INFORMED PT TO USE BATRIATRIC BED AND ELEVATE LEGS ALL THE TIME. PT C/O OF PAIN AND GIVEN PAIN MEDICATION PER PT REQUEST. NO C/O OF NAUSEA AND VOMITING. PT TOLERATED MEDICATION AND DIET WELL. PT ON THE CHAIR WITH LEGS ELEVATED. WILL CONTINUE TO MONITOR PT. FOLLOW POC.
--- NOTE | 2021-05-04 14:43 | NUR ---
on-going assessment: CM REVIEWED CHART. PT IS CONTINUING ON IV ANBX AND WOUND CARE. DR. DICKERSON HAS BEEN CONSULTED REGARDING MORBID OBESTIY. CM SPOKE WITH PATIENT REGARDING CPAP MACHINE AND FOLLOW UP. PT REPORTS HE HAD AN OUTPATIENT SLEEP STUDY AND WAS TO SENIOR CLIENT ADVISOR A CPAP MACHINE FROM [employer] BUT REPORTS HE HAD TROUBLE WITH TRASNPORTATION AND WENT BACK AND FORTH WITH A RUDE LADY AT THE [employer] AND ENDED UP NEVER GOING TO GET HIS MACHINE. PT REPORTS THAT HIS MOTHER DRIVES AND ASSIST HIM. CM DISCUSSED IMPORTANCE OF COMPLIANCE. CM WILL CONTINUE TO FOLLOW TO ASSIST NEEDED.
[2021-05-04 16:32] VITALS: BP 134/72
[2021-05-04 21:33] VITALS: BP 118/58
--- NOTE | 2021-05-05 04:46 | NUR ---
ASSUMED PT CARE AT 1900. INTRODUCED SELF TO PT. PT IS ALERT AND ORIENTED X4. PT HAS LAKEISHA WRAPPING ON BLE, NO DRAINAGE NOTED. PT C/O PAIN RELATING TO LE WHICH WAS MANAGED BY PRN PAIN MEDS.PT IS UP AD JOAN TO THE BR. PT DID NOT EXPRESS ANY OTHER CONCERNS. BED IS LOCKED WITH CALL LIGHT WITHIN REACH.
[2021-05-05 06:02] LABS: CALCIUM 7.9 mg/dL (8.5-10.1); PHOSPHORUS 4.6 mg/dL (2.5-4.9); POTASSIUM 3.7 mmol/L (3.5-5.1)
--- NOTE | 2021-05-05 08:50 | HC ---
[facility] [place] [address] CONSULTATION Name: JENNIFER LEDBETTER Room #: 448-P ADM IN M.R.#: [id number] Admission: 05/02/21 Attend Phys: Janna Card Discharge: Date of : 89 Report #: [id number] THIS REPORT FOR: cc: FAM - Family physician unknown FAM - Family physician unknown Terry Preston MD ~ DOC #: [id number] Terry Preston MD DATE OF SERVICE: 05/04/2021 CHIEF COMPLAINT: Bilateral lower extremity ulcers and lymphedema. HISTORY OF PRESENT ILLNESS: This is a 35-year-old patient with whom I am familiar. He has chronic lymphedema to both lower extremities that is mainly on the basis of his extreme morbid obesity. He has had development of chronic ulcerations in association with his lymphedema. He has been managed at home for a while since his last hospitalization, but his recliner chair has broken and his legs were left dependent. He developed blisters and subsequent cellulitis and I have been asked to see him with regard to ongoing wound care. ALLERGIES: CLINDAMYCIN. MEDICATIONS: Include gabapentin, hydrochlorothiazide and metformin. SOCIAL HISTORY: Negative for alcohol or tobacco use. FAMILY HISTORY: Noncontributory. PAST MEDICAL HISTORY: Positive for hypertension, cardiomyopathy, morbid obesity, anxiety. REVIEW OF SYSTEMS: CONSTITUTIONAL: The patient denies fever, chills or weight loss. NEUROLOGICAL: The patient denies focal weakness, some tingling. EYES: The patient denies visual changes, redness, drainage. ENT: The patient denies earache, nasal drainage, or sore throat. CARDIOVASCULAR: The patient denies chest pain, palpitation, or diaphoresis. PULMONARY: The patient denies cough or shortness of breath. GASTROINTESTINAL: The patient denies nausea, vomiting, diarrhea or abdominal pain. ORTHOPEDIC: The patient denies pain, swelling, redness and blistering in bilateral lower extremities. Others systems in a 14-point review of systems are negative. PHYSICAL EXAMINATION: [address] [address] CONSULTATION Name: JENNIFER LEDBETTER Room #: [address] [place] [address] IN M.R.#: [id number] Admission: 05/02/21 Attend Phys: Janna Card Discharge: Date of : 87 Report #: [id number] VITAL SIGNS: At this time include temperature 36.3, pulse 94, respiration of 20, blood pressure 146/87. GENERAL: This is a well-developed, well-nourished male patient appears to be in minimal distress. HEENT: Head normocephalic. Nose and throat clear. NECK: Supple. LUNGS: Clear. ABDOMEN: Obese, soft, nontender. EXTREMITIES: Lower extremities demonstrate palpable distal pulses. He has moderate erythema, tenderness, warmth and some blistering on both lower legs. NEUROLOGIC: The patient is alert and oriented. LABORATORY DATA: Sodium 140, potassium 3.9, chloride 102, CO2 29, BUN 13, creatinine 1.2, glucose 105. CLINICAL IMPRESSION: 1. Bilateral lower extremity lymphedema. 2. Chronic venous ulcerations with recurring cellulitis, bilateral lower extremities. 3. Super morbid obesity. 4. Hypertension. 5. Cardiomyopathy. RECOMMENDATIONS: At this point in time, we will recommend topical gentamicin, Xeroform, ABD and lymphedema wraps to bilateral lower extremities. We will consult occupational therapy for lymphedema management. We will continue with daily management of his other underlying medical issues. On a positive note, it appears that he may be a candidate for bariatric surgery and is perhaps initiating that process. Significant weight loss would certainly benefit him very much as I think that his obesity is the main underlying lokie driver of his other medical illnesses. I appreciate being asked to see him in consultation. MD YONY Pierre/ROCAEL/ELLY <ELECTRONICALLY SIGNED> By: Terry Preston MD 05/05/21 0850 [id number] [id number] Terry Preston MD /nt
--- NOTE | 2021-05-05 10:10 | NUR ---
ASSUMED CARE OF PT AT 0700 THIS MORNING. PT IS ADMITTED FOR CELLULITIS AND PAIN IN THE LOWER EXTREMETIES. PT IS A/OX4, AMBULATES TO RESTROOM INDEP, SKIN INTACT EXCEPT LOWER LEGS ARE WRAPPED IN KERLEX AND LAKEISHA WRAP. DRESSINGS ARE C/D/I AND SHOULD NOT BE CHANGED UNLESS REQUESTED BY PT. ABD OBESE SOFT NONTENDER. LUNGS ARE CLEAR WITH DIMINISHED LOWER LOBES, POSSIBLY DUE TO PT SIZE. ASSESSMENTS NOTED IN CHART AND OTHERWISE UNREMARKABLE. IV IN LEFT WRIST, SL WITH ABX TX. CALL LIGHT AND OTHER NEEDS ARE WITHIN REACH. MEDS AND TX GIVEN NEEDED AND SCHEDULED. WILL CONTINUE TO MONITOR.
--- NOTE | 2021-05-05 15:15 | NUR ---
on-going assessment: CM REVIEWED CHART AND SPOKE WITH ATTENDING. PT REMAINS ON IV ANBX AND RECEIVING WOUND CARE. PT IS CONSIDERING BARIATRIC SURGERY. DR. DICKERSON HAS BEEN SPEAKING WITH PATIENT WELL ASSISTANT CURATOR. PT WILL LIKELY BE HERE THROUGH THE WEEKEND PER ATTENDING. CM WILL CONTINUE TO FOLLOW TO ASSIST NEEDED.
[2021-05-05 20:46] VITALS: BP 129/64
--- NOTE | 2021-05-06 04:26 | NUR ---
PT IS A/O X4 AND IS UP AD JOAN TO THE BR. C/O PAIN AND ITCHING. PRN PAIN AND ANTI-ITCH MEDICATION GIVEN DIRECTED. PARTIAL RELIEF NOTED. VSS. AFEBRILE. LEGS REMAIN IN LAKEISHA WRAPS AND ARE C/D/I. MEDICATIONS GIVEN PER MAR. CALL LIGHT IS WITHIN REACH. PT IS PLEASANT AND COOPERATIVE AND CALLS OUT APPROPRIATELY.
[2021-05-06 07:40] VITALS: BP 141/55
--- NOTE | 2021-05-06 15:21 | NUR ---
CONTINUING CARE OF PT AT 0700 THIS MORNING. PT HAD NO CHANGE OVERNIGHT AND NO COMPLAINTS THIS MORNING. PT HAS BEEN A/OX4 AND HAS BEEN APPROACHED BY HCP ABOUT BARIATRIC SURGERY. PT IS CONTEMPLATING THE IDEA OF HE SURGERY. PT C/O N/V APPROX 1500 THIS AFTERNOON. ASSESSMENTS CHARTED AND OTHERWISE UNREMARKABLE. MEDS AND TX GIVEN NEEDED AND SCHEDULED.
[2021-05-06 16:50] VITALS: BP 137/72
[2021-05-06 20:45] VITALS: BP 129/67
[2021-05-07 03:10] VITALS: BP 154/88
--- NOTE | 2021-05-07 06:38 | NUR ---
ASSUMED PT CARE AT 1925. INTRODUCED SELF TO PT. PT WAS WATCHING TV IN BED. PT IS ALERT AND ORIENTED X4. PT WAS INTERACTIVE AND PLEASANT. PT COMPLAINED OF PAIN AROUND THE UMBILICUS REGION. PER PT "THE PAIN STARTED WHEN I TRIED TO GET UP FROM THE RECLINER TO GO THE BR". PT DECIDED PUT DINNER ON HOLD DUE TO THE PAIN. PT WAS GIVEN SOME PRN PAIN MEDS AFTER WHICH PT HAD DINNER. PT HAS LAKEISHA WRAPPING ON BLE WHICH ARE C/D/I. BED IS LOCKED WITH CALL LIGHT WITHIN REACH.
[2021-05-07 07:56] VITALS: BP 141/75
--- NOTE | 2021-05-07 15:04 | NUR ---
ASSUMED PT CARE THIS AM. PT IS ALERT & ORIENTED X4. PT HAS IV SITE ON R HAND. PT IS ON ROOM AIR. PT USES BARIATRIC BED. PT IS UP AD JOAN AND HAS BATHROOM PRIVILEDGE. PT C/O OF PAIN AND GIVEN PAIN MEDICATION PER PT REQUEST. PT C/O OF NAUSEA BUT NO VOMITING NOTED AND GIVEN NAUSE MEDICATION PER PT REQUEST. PT TOLERATED MEDICATION AND DIET WELL. PT ON THE CHAIR WITH LEGS ELEVATED. CALL LIGHT WITHIN REACH. WILL CONTINUE TO MONITOR PT. FOLLOW POC.
[2021-05-07 17:42] VITALS: BP 127/56
[2021-05-07 19:38] VITALS: BP 134/70
--- NOTE | 2021-05-08 03:34 | NUR ---
ASSESSED AT START OF SHIFT. PT A&OX4. RATES PAIN 7/10 IN ABD AREA. OXYCODONE GIVEN. LY LEG DRESSING C/D/I. ELEVATED BOTH EXTREMITIES. IV INTACT IN ABX GIVEN. PT DENIES NAISEA ON ASSESSMENT. CALL LIGHT AT REACH WILL CONT TO MONITOR.
[2021-05-08 05:15] VITALS: BP 134/78
[2021-05-08 07:22] VITALS: BP 111/66
[2021-05-08] MEDS ORDERED: AUGMENTIN 875-1 EACH PO (09:27)
[2021-05-08] MEDS ORDERED: ULTRAM 50MG TAB50 MG PO (09:28)
[2021-05-08 11:09] VITALS: BP 111/66
--- NOTE | 2021-05-08 11:11 | NUR ---
ON-GOING ASSESSMENT: CM REVIEWED CHART AND SPOKE WITH PATIENT WELL ATTENDING. PT HAS ORDERS TO DISCHARGE HOME TODAY WITH HOME HEALTH. CM DISCUSSED WITH PATIENT AND HE PREFERS TO USE [facility] AGAIN AT DISCHARGE HE HAS HAD THEM IN THE PAST. CM FAXED REFERRAL TO [facility] AND SPOKE WITH [facility] WHO CONFIRMED THEY CAN ACCEPT PATIENT. CM FAXED DISCHARGE PAPERWORK TO [facility] AND CONFIRMED THEY RECEIVED IT. PT REPORTS A NEIGHBOR WILL LIKELY PICK HIM UP AT DISCHARGE. PT HAS NEEDED DME AT HOME. CM ENCOURAGED PATIENT TO CONTINUE TO FOLLOW UP REGARDING GETTING CPAP MACHINE. DR. DICKERSON DISCUSSED BARIATRIC SURGERY WITH PATIENT AND CAN BE FOLLOWED UP ON OUTPT BASIS.
--- NOTE | 2021-05-08 11:20 | NUR ---
ASSUMED PT CARE THIS AM. PT IS ALERT & ORIENTED X4. PT HAS IV SITE ON R HAND. PT HAS BARIATRIC BED. PT C/O OF NAUSEA AND PAIN AND GIVEN NAUSEA AND PAIN MEDICATION PER PT REQUEST. PT IS ON ROOM AIR. PT AMBULATE IN THE HALLWAY THIS AM. EDUCATED THE IMPORTANCE OF CHANGING POSITION, AMBULATION AND EATING HEALTHY FOOD. DID WOUND CARE THIS AM WITHB NS, GENTAMYCIN, XEROFORM, ABD, KERLIX AND LAKEISHA. INFORMED PT THAT WILL GIVE HIM ENEMA FLEETS DUE TO NO BM FOR A COUPLE OF DAYS. PT ON THE CHAIR WITH OT. WILL CONTINUE TO MONITOR PT. FOLLOW POC.
== END 2021-05-08 16:39 | disposition home or self-care (01) | DRG 603 ==
LOC: ER 15:41 → 4S 18:51 → EROBS 18:51 → 4S 20:00
PROVIDERS: Emergency Medicine; ADMIT Hospitalist; ATTEND Hospitalist
DX: L03.115 Cellulitis of right lower limb (principal); Z68.45 Body mass index [BMI] 70 or greater, adult; I42.9 Cardiomyopathy, unspecified; L97.929 Non-pressure chronic ulcer of unspecified part of left lower leg with unspecified severity; L97.919 Non-pressure chronic ulcer of unspecified part of right lower leg with unspecified severity; E44.1 Mild protein-calorie malnutrition; L03.116 Cellulitis of left lower limb; F41.9 Anxiety disorder, unspecified; E66.01 Morbid (severe) obesity due to excess calories; E03.9 Hypothyroidism, unspecified; G47.33 Obstructive sleep apnea (adult) (pediatric); E11.9 Type 2 diabetes mellitus without complications; F32.9 Major depressive disorder, single episode, unspecified; I10 Essential (primary) hypertension; Z88.1 Allergy status to other antibiotic agents; Z79.84 Long term (current) use of oral hypoglycemic drugs; Z79.899 Other long term (current) drug therapy
CPT/HCPCS: 10195

== ENCOUNTER 2021-05-19 15:42 | Inpatient (IN) | payer BC, OTHER ==
[~2021-05-19] VITALS: Ht 170.2 cm; Wt 226.8 kg
[~2021-05-19 15:42] MED LIST changes: +ULTRAM 50MG TAB50 MG PO
[2021-05-19 15:53] VITALS: BP 201/78
[2021-05-19 16:18] LABS: HEMATOCRIT 39.5 % (42.0-52.0); HEMOGLOBIN 13.5 gm/dL (14.0-18.0); MCH 27.7 pg (26.0-34.0); MCHC 34.1 g/dL (28.0-37.0); MCV 81.1 fL (80.0-100.0); RBC 4.87 mil/uL (4.50-6.00); RDW 17.2 % (10.5-14.5); WBC 13.4 thou/uL (4.0-11.0)
[2021-05-19 16:32] LABS: CALCIUM 9.2 mg/dL (8.5-10.1); CREATININE 1.1 mg/dL (0.7-1.3); POTASSIUM 4.1 mmol/L (3.5-5.1)
[2021-05-19 18:57] VITALS: BP 140/69
[2021-05-19 19:02] VITALS: BP 140/69
[2021-05-19 19:59] VITALS: BP 151/95
[2021-05-19 20:00] VITALS: BP 151/95
[2021-05-20 07:45] VITALS: BP 155/87
[2021-05-20 16:00] VITALS: BP 147/86
[2021-05-20 19:15] VITALS: BP 144/61
[2021-05-21 07:54] VITALS: BP 149/73
--- NOTE | 2021-05-21 12:05 | HC ---
[facility] [place] [address] [address] CONSULTATION Name: JENNIFER LEDBETTER Room #: 444-P ADM IN M.R.#: [id number] Admission: 05/19/21 Attend Phys: Speedy Pickard MD Discharge: Date of : 89 Report #: [id number] THIS REPORT FOR: cc: FAM - Family physician unknown FAM - Family physician unknown Giuseppe Thakkar MD ~ DATE OF SERVICE: 05/20/2021 WOUND CARE CONSULTATION NOTE REASON FOR CONSULTATION: Super morbid obesity with bilateral lymphedema and now cellulitis with ulceration of right leg. HISTORY OF PRESENT ILLNESS: Patient is a 35-year-old gentleman who works at [employer] who has suffered with super morbid obesity, diabetes, lower extremity lymphedema, venous stasis with inflammation and ulceration and now worsening cellulitis of his right leg with increased pain, redness, ulceration and drainage. He is admitted to the hospital by Dr. Pickard. White blood count 13.4, currently on IV vancomycin and Levaquin. The patient has been in the hospital multiple times for recurring cellulitis, ____ past few days of right leg in particular more red, swollen, tender, painful and draining. PAST MEDICAL HISTORY: Super morbid obesity, chronic lymphedema of the legs, recurring cellulitis of legs, congestive heart failure, diabetes mellitus type 2. ALLERGIES: CLINDAMYCIN, AMOXICILLIN, AUGMENTIN. MEDICATIONS: At home include Neurontin, Glucophage, Augmentin, Ultram. PHYSICAL EXAMINATION: GENERAL: Shows an alert, pleasant, conversant, super morbidly obese 35-year-old gentleman with no cardiorespiratory distress. He is alert, pleasant, conversant. ABDOMEN: Super morbidly obese. EXTREMITIES: Shows bilateral lymphedema. There is chronic venous stasis dermatitis of both legs. Both legs are red. Right leg is worse with more swelling and red with cellulitis. In the lateral aspect of the right leg, there is a superficial 3 x 3 cm area of tender ulceration with some drainage. IMPRESSION: 1. Super morbid obesity. 2. Chronic lymphedema. 3. Chronic venous stasis with inflammation of lower extremities. 4. Venous stasis ulceration, right leg. 5. Cellulitis of right leg, less on the left. [facility] [address] [place] [address] CONSULTATION Name: JENNIFER LEDBETTER ARCHIE Room #: 444- ADM IN M.R.#: [id number] Admission: 05/19/21 Attend Phys: Speedy Pickard MD Discharge: Date of : 89 Report #: [id number] PLAN: IV antibiotics, topical morphine, Silvadene 3 times a day, elevation, wound care team will follow. <ELECTRONICALLY SIGNED> By: Giuseppe Thakkar MD 05/21/21 1205 1216 16 Giuseppe Thakkar MD /nt
[2021-05-21 15:07] VITALS: BP 146/54
[2021-05-21 20:45] VITALS: BP 128/71
[2021-05-22 07:15] VITALS: BP 133/97
[2021-05-22 20:26] VITALS: BP 147/78
[2021-05-23 03:50] VITALS: BP 171/87
[2021-05-23 09:01] VITALS: BP 153/77
[2021-05-23 19:31] VITALS: BP 151/68
[2021-05-24 04:51] VITALS: BP 170/75
[2021-05-24 07:00] VITALS: BP 165/91
[2021-05-24 10:18] LABS: HEMOGLOBIN 13.7 gm/dL (14.0-18.0); MCH 26.6 pg (26.0-34.0); MCHC 32.6 g/dL (28.0-37.0); MCV 81.7 fL (80.0-100.0); RBC 5.13 mil/uL (4.50-6.00); RDW 17.3 % (10.5-14.5); WBC 11.8 thou/uL (4.0-11.0)
[2021-05-24 10:30] LABS: CALCIUM 8.8 mg/dL (8.5-10.1); CREATININE 1.2 mg/dL (0.7-1.3); MAGNESIUM 2.1 mg/dL (1.8-2.4); POTASSIUM 4.2 mmol/L (3.5-5.1)
[2021-05-24 15:41] VITALS: BP 136/60
[2021-05-24 19:55] VITALS: BP 148/79
[2021-05-25 03:08] VITALS: BP 167/83
[2021-05-25 07:35] VITALS: BP 157/87
[2021-05-25 16:45] VITALS: BP 152/72
[2021-05-25 19:40] VITALS: BP 112/58
[2021-05-26 03:55] VITALS: BP 140/81
[2021-05-26 08:08] VITALS: BP 134/77
[2021-05-26] MEDS ORDERED: LEVOFLOXACIN500 MG PO (09:31)
[2021-05-26] MEDS ORDERED: ENOXAPARIN40 MG/0.1 SUBQ (09:31)
[2021-05-26] MEDS ORDERED: NYSTATIN15 G1 TOP (09:33)
[2021-05-26] MEDS ORDERED: PERIDEX 0.12%473 M1 SWISH&SPIT (09:42)
[2021-05-26] MEDS ORDERED: DOXYCYCLINE 10100 M2 PO (14:45)
== END 2021-05-26 17:55 | DRG 603 ==
LOC: ER 15:42 → 4S 19:19 → EROBS 19:19 → 4S 19:51
PROVIDERS: Student in an Organized Health Care Education/Training Program; ADMIT Internal Medicine; ATTEND Internal Medicine
DX: L03.115 Cellulitis of right lower limb (principal); I42.9 Cardiomyopathy, unspecified; E44.1 Mild protein-calorie malnutrition; B37.89 Other sites of candidiasis; Z68.45 Body mass index [BMI] 70 or greater, adult; F41.9 Anxiety disorder, unspecified; L03.116 Cellulitis of left lower limb; E66.01 Morbid (severe) obesity due to excess calories; F32.9 Major depressive disorder, single episode, unspecified; I10 Essential (primary) hypertension; G47.33 Obstructive sleep apnea (adult) (pediatric); E03.9 Hypothyroidism, unspecified; D63.8 Anemia in other chronic diseases classified elsewhere; R53.81 Other malaise; E11.622 Type 2 diabetes mellitus with other skin ulcer; K05.10 Chronic gingivitis, plaque induced; B35.1 Tinea unguium; I89.0 Lymphedema, not elsewhere classified; I87.2 Venous insufficiency (chronic) (peripheral); Z88.1 Allergy status to other antibiotic agents; Z88.8 Allergy status to other drugs, medicaments and biological substances
CPT/HCPCS: 10195

== ENCOUNTER 2021-09-23 10:47 | Inpatient (IN) | payer BC, OTHER ==
[~2021-09-23] VITALS: Ht 170.2 cm; Wt 216.5 kg
[~2021-09-23 10:47] MED LIST changes: +DOXYCYCLINE 10100 M2 PO; +LEVOFLOXACIN500 MG PO; +NYSTATIN15 G1 TOP; +PERIDEX 0.12%473 M1 SWISH&SPIT
[2021-09-23 10:56] VITALS: BP 184/85
[2021-09-23 11:54] LABS: ABSOLUTE NEUTROPHILS 11.6 thou/uL (1.4-8.2); BASOPHILS 0.5 % (0.0-2.0); EOSINOPHILS 0.6 % (0.0-3.0); HEMOGLOBIN 12.3 gm/dL (14.0-18.0); MCH 28.1 pg (26.0-34.0); MCHC 33.2 g/dL (28.0-37.0); MCV 84.7 fL (80.0-100.0); MONOCYTES 12.1 % (1.0-8.0); PLATELET COUNT 229 thou/uL (150-400); POLYS 76.8 % (36.0-66.0); RBC 4.38 mil/uL (4.50-6.00); RDW 14.7 % (10.5-14.5); WBC 15.1 thou/uL (4.0-11.0)
[2021-09-23 12:06] LABS: ALBUMIN 3.3 g/dL (3.4-5.0); CALCIUM 8.9 mg/dL (8.5-10.1); CREATININE 1.4 mg/dL (0.7-1.3); TOTAL BILIRUBIN 2.7 mg/dL (0.2-1.0)
[2021-09-23 12:16] LABS: POTASSIUM 2.5 mmol/L (3.5-5.1)
[2021-09-23 13:43] VITALS: BP 178/48
[2021-09-23 15:13] VITALS: BP 135/60
--- NOTE | 2021-09-23 17:32 | NUR ---
PT ARRIVED TO FLOOR FROM ED PER CART AT 1500 IN STABLE CONDITION. ADMISSSION HX, ASSESSMENT AND CAREPLAN CONMPLETED.ALL CONSULTS CALLED ORDERED. DR HUYNH WAS ON THE FLOOR WHEN PT ARRIVED. HE SAW THE PT AND NEW ORDER NOTED.PT BLOOD SUGAR AT DINNER WAS 115. NO INSULIN NEEDED BUT ORAL MED GIVEN BEFORE DINNER. PT C/O LEFT LEG PAIN RATED 6/10. PAIN MED GIVEN. WILL CONTINUE TO MONITOR.
[2021-09-23 19:45] VITALS: BP 124/64
[2021-09-24 05:26] LABS: HEMATOCRIT 32.6 % (42.0-52.0); HEMOGLOBIN 10.8 gm/dL (14.0-18.0); MCH 28.2 pg (26.0-34.0); MCHC 33.2 g/dL (28.0-37.0); MCV 84.8 fL (80.0-100.0); RBC 3.84 mil/uL (4.50-6.00); RDW 14.5 % (10.5-14.5); WBC 10.2 thou/uL (4.0-11.0)
[2021-09-24 05:40] LABS: ALBUMIN 2.6 g/dL (3.4-5.0); CALCIUM 8.5 mg/dL (8.5-10.1); CREATININE 1.2 mg/dL (0.7-1.3); PHOSPHORUS 3.8 mg/dL (2.5-4.9)
[2021-09-24 05:49] LABS: POTASSIUM 2.7 mmol/L (3.5-5.1)
--- NOTE | 2021-09-24 05:53 | NUR ---
CRITICAL POTASSIUM RESULT CALLED FROM LAB. SPOKE WITH Stefan COONEY NP AND ORDERS GIVEN. POTASSIUM RECHECK ORDERED FOR 0800. PATIENT FLAT BUT PLEASANT ON ASSESSMENT. UP AD JOAN BUT PATIENT DID NEED HELP WITH PULLING UP COVERS STATED HE COULD NOT REACH. PATIENT GIVEN ONE DOSE OF PAIN MEDS FOR C/O LOWER EXTREMITY PAIN. PATIENT DID NOT SLEEP MOST OF THE NOC. PATIENT EDUCATED ON REST, MEDS FOR SLEEP, AND WOUND CARE.
[2021-09-24 07:15] VITALS: BP 122/58
--- NOTE | 2021-09-24 12:54 | HC ---
[facility] [place] [address] CONSULTATION Name: JENNIFER LEDBETTER Room #: 450-P ADM IN M.R.#: [id number] Admission: 09/23/21 Attend Phys: Janna Card Discharge: Date of : 89 Report #: [id number] THIS REPORT FOR: cc: FAM - Family physician unknown FAM - Family physician unknown Giuseppe Thakkar MD ~ DATE OF SERVICE: 09/24/2021 WOUND CARE CONSULTATION REASON FOR CONSULTATION: Recurrent severe cellulitis of left lower extremity in the setting of super morbid obesity, chronic lymphedema and venous stasis. HISTORY OF PRESENT ILLNESS: The patient is very pleasant 36-year-old gentleman who works at [employer] and is well known to the ____ wound care service and Dr. Garcia from previous admissions. He suffers from super morbid obesity and chronic lymphedema of the lower extremities. He has had admissions for secondary cellulitis of the lower extremities in the past. He sees home health, who has lymphedema wraps of his right leg. About 2 weeks ago, he noticed his left leg become more red. This became worse and worse, became more bright red, painful, weeping and with open wounds, anteriorly and posteriorly. He is admitted for IV antibiotics, was on vancomycin, now on cefepime. He has had morphine, Silvadene topical in the past. Wound culture has been taken. PAST MEDICAL HISTORY: Super morbid obesity, chronic lymphedema of lower extremities, congestive heart failure, hypertension, obstructive sleep apnea, history of venous stasis ulcers. ALLERGIES: CLINDAMYCIN, AMOXICILLIN AND CLAVULANIC ACID OR AUGMENTIN. LABORATORY DATA: Notable for potassium 2.5, albumin 3.3. White blood count 15.1. PHYSICAL EXAMINATION: GENERAL: The patient is alert, pleasant, conversant, does not appear toxic. HEENT: Mucous membranes are moist. NECK: Supple. LUNGS: Respirations unlabored. ABDOMEN: Super morbidly obese. EXTREMITIES: Show lymphedema wrap of the right lower extremity. The patient said this was placed on Saturday. That leg is doing well. The wrap is not removed. Examination of the left leg shows chronic lymphedema. There is severe bright red cellulitis of the left leg, beginning approximately 10 cm below the knee. There is small open wound of the upper leg pretibial area and a chronic venous stasis ulcer of the left posterior leg. Wounds are slightly weeping. Wound cultures have been done. Wound is tender to touch. [facility] [address] [place] [address] CONSULTATION Name: JENNIFER LEDBETTER Room #: 450-P [facility] IN M.R.#: [id number] Admission: 09/23/21 Attend Phys: Janna Card Discharge: Date of : 87 Report #: [id number] IMPRESSION: 1. Super morbid obesity. 2. Chronic lymphedema. 3. Recurrent cellulitis of left leg, with open draining wounds. Wound culture is pending. 4. Venous stasis ulceration of left posterior leg. 5. Hypokalemia. 6. Leukocytosis. 7. Mild protein-calorie malnutrition, albumin 3.4. PLAN: IV antibiotics, currently cefepime, topical morphine and Silvadene to open wounds of the left leg, covered with Xeroform. Wound cultures pending. Wound care team will follow. <ELECTRONICALLY SIGNED> By: Giuseppe Thakakr MD 09/24/21 1254 0525 0534 Giuseppe Thakkar MD /nt
--- NOTE | 2021-09-24 14:26 | HC ---
[facility] [place] [place] [address] CONSULTATION Name: ANATOLYJENNIFER ALMANZA Room #: 450-P ADM IN M.R.#: [id number] Admission: 09/23/21 Attend Phys: Janna Card Discharge: Date of : 89 Report #: [id number] THIS REPORT FOR: cc: FAM - Family physician unknown FAM - Family physician unknown Tremaine Landis MD ~ DATE OF SERVICE: 09/23/2021 INFECTIOUS DISEASE CONSULTATION REASON FOR CONSULTATION: I was asked to evaluate concerning left lower extremity venous stasis disease, chronic lymphedema with morbid obesity and secondary cellulitis with lymphangitis. HISTORY OF PRESENT ILLNESS: The patient is a 36-year-old morbidly obese gentleman with chronic lymphedema of both lower extremities. Approximately 3 weeks ago noticed increased swelling and erythema involving his left lower leg. Has been more compliant with his compression wraps. These were stopped; however, due to the erythema. Last week, he was placed on oral cephalosporin but did not improve. He now presents with increased pain and swelling. No documented fever, although he has had occasional chills, no sweats. He reports no specific trauma. He has had some oozing from his pretibial skin and a small ulcer to the left lateral lower leg. No history of DVT or PE. He does have cardiomyopathy. He has obstructive sleep apnea. No change in his respiratory status. REVIEW OF SYSTEMS: A 14-point review was negative other than what has been described above. PAST MEDICAL HISTORY: Anxiety, obesity, depression, sleep apnea, hypertension, anemia, cardiomyopathy, chronic lymphedema, venous stasis ulcers, repeated admissions for cellulitis and lymphangitis. ALLERGIES: CLINDAMYCIN WITH RASH, DIARRHEA WITH AUGMENTIN. MEDICATIONS: As noted on his MAR, which were reviewed, having been started on vancomycin in the Emergency Room. FAMILY HISTORY: Noncontributory. SOCIAL HISTORY: Nonsmoker, no significant alcohol intake. PHYSICAL EXAMINATION: GENERAL: He was afebrile and hemodynamically stable. Alert and cooperative. His weight was 477 pounds. [facility] [address] [place] [address] CONSULTATION Name: JENNIFER LEDBETTER Room #: 450-P ADM IN M.R.#: [id number] Admission: 09/23/21 Attend Phys: Janna Tipton Kyaw Discharge: Date of : 89 Report #: [id number] SKIN: With cellulitis and lymphangitis involving the left lower extremity with lymphangitis extending up to his medial thigh. There were 2 small ulcerations anteriorly to his pretibial skin and one laterally, which had serous drainage. He was exquisitely tender over his lower leg with 4+ edema. No palpable adenopathy. HEENT: Eyes without scleral icterus. Mouth without mucositis. NECK: Supple with no thyromegaly or mass. LUNGS: Clear to auscultation. HEART: Regular, without murmur, gallop or rub. ABDOMEN: Soft, obese, nontender with a large abdominal pannus with edema and venous stasis dermatitis changes. EXTERNAL GENITALIA: Not performed. RECTAL: Not performed. NEUROLOGIC: Cranial nerves intact. Strength in the upper and lower extremities was normal as well as sensation. PSYCHIATRIC: Mood without anxiety. LABORATORY DATA: Reviewed. MICROBIOLOGY: Reviewed. IMPRESSION: 1. A 36-year-old with morbid obesity and chronic lymphedema, now with secondary cellulitis and lymphangitis of the left lower extremity. 2. Anxiety. 3. Cardiomyopathy. 4. Acute kidney injury. 5. Anemia. RECOMMENDATION: We will continue with IV antibiotic therapy. Also, continue with edema control, leg elevation and local wound care. Continue to work on diet control or weight loss program. <ELECTRONICALLY SIGNED> By: Tremaine Landis MD 09/24/21 1426 1523 58 Tremaine Landis MD /nt
[2021-09-24 19:53] VITALS: BP 119/75
--- NOTE | 2021-09-25 05:48 | NUR ---
patient aox4 makes needs known. patient has cellulitis on lle, rue has a thuy wrap c/d/i. patient is up at silvia. patient in bed asleep at this time breathing regular and unlaboured.
[2021-09-25 06:04] LABS: ALBUMIN 2.6 g/dL (3.4-5.0); CALCIUM 8.5 mg/dL (8.5-10.1); CREATININE 1.1 mg/dL (0.7-1.3); PHOSPHORUS 4.1 mg/dL (2.5-4.9)
[2021-09-25 06:23] LABS: POTASSIUM 2.9 mmol/L (3.5-5.1)
[2021-09-25 07:08] VITALS: BP 166/73
--- NOTE | 2021-09-25 14:58 | NUR ---
ASSUMED PT CARE THIS AM. PT A&OX4, ABLE TO MAKE NEEDS KNOWN. PATIENT REPORTING PAIN IN THE LEFT LOWER EXTREMETY THAT DECREASES WITH PAIN MEDICATION GIVEN PER EMAR. PATIENT WITH EDEMA TO BLE NOTED. PATIENT ON ROOM AIR. IV REMAINS PATENT, SALINE LOCKED. MEDICATIONS TAKEN WITHOUT ISSUE. PATIENT UP AD JOAN IN ROOM AND REMAINS CONTINENT. CALL LIGHT WITHIN REACH.
--- NOTE | 2021-09-25 15:26 | NUR ---
PT ADMITTED RELATED TO CELLULITIS LEFT LOWER LEG AND OPEN WOUNDS. CM REVIEWED CHART AND SPOKE WITH CARE TEAM. CM MET WITH PT AT BEDSIDE THIS DAY. PT APPEARED TO BE A&O X4. CM ROLE INTRODUCED. PT INDICATED THAT HE IS LIVING IN A HOUSE WITH HIS MOM. HE INDICATED 1 STEP TO ENTER AND MAYBE 2 STEPS INSIDE THAT HE WOULD USE. 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 PT INDICATED HE HAD BEEN ON SERVICE WITH [facility] ELA TEACHER. PT INDICATED HE PLANS TO RETURN HOME ONCE MEDICALLY STABLE AND RESUME SERVICES WITH [facility]. PT ON IV VANC AND CEFEPIME WITH WC CONSULTED. CM FOLLOWING REGARDING DC PLANNING.
[2021-09-25 16:01] VITALS: BP 128/71
[2021-09-25 20:54] VITALS: BP 157/67
--- NOTE | 2021-09-26 06:31 | NUR ---
ASSUMED CARE OF PT AT 1900. PT ASSESSED TO BE AOX4 36M PRESENTING WITH BLE EDEMA WITH OPEN WOUNDS. PT RESTED QUIETLY IN ROOM THROUGHOUT THE NIGHT WITH FEW COMPLAINTS, VSS. AMBULATES STEADILY AD JAON, STABLE ON RA, TAKES MEDS WHOLE, WITH A GOOD APPETITE. PLANNING TO DRESS WOUNDS EFFECTIVELY PER WOUND ORDERS IN AM. WILL CONT TO MONITOR.
[2021-09-26 07:09] VITALS: BP 145/66
--- NOTE | 2021-09-26 14:37 | NUR ---
ASSUMED PT CARE THIS AM. PT A&OX4, ABLE TO MAKE NEEDS KNOWN. PATIENT AMBULATORY IN ROOM, ASSISTING WHEN NEEDED. PATIENT PAIN TO LLE DECREASES WITH PAIN MEDICAITON GIVEN PER EMAR. PATIENT ON ROOM AIR. IV REMAINS PATENT. MEDICATIONS TAKEN WITHOUT ISSUE. CALL LIGHT WITHIN REACH.
[2021-09-26 15:59] VITALS: BP 133/77
[2021-09-26 19:49] VITALS: BP 124/56
--- NOTE | 2021-09-27 06:23 | NUR ---
ASSUMED CARE OF PT AT 1900. PT CONTINUES TO BE AOX4 36M PRESENTING WITH MULTIPLE LEG WOUNDS WITH EXCESSIVE EDEMA. THROUGHOUT THE NIGHT PT WAS ABLE TO REST QUIETLY IN ROOM WITH NO COMPLAINTS, VSS. PT AMBULATES TO THE BATHROOM AD JOAN AND HAD A BM, WOUND DRESSINGS INTACT AND APPLIED MEPILEX TO BACK L LEG, SUGARS STABLE, ON RA, PAIN CONTROLLED WITH ORAL PAIN MEDS, SLEEPS WITH LEGS UP TO AIDE DRAINAGE. WILL CONT TO MONITOR.
[2021-09-27 07:00] VITALS: BP 120/56
--- NOTE | 2021-09-27 14:03 | NUR ---
PT CONTINUES ON IV ABX WITH WC FOLLOWING. IT IS ANTICPATED THAT PT WILL LIKELY BE ABLE TO RETURN HOME WITH [facility] ONCE MEDICALLY STABLE. CM FOLLOWING.
--- NOTE | 2021-09-27 14:46 | NUR ---
ASSUMED PT CARE THIS AM. PT A&OX4, ABLE TO MAKE NEEDS KNOWN. PATIENT REPORTS PAIN THAT DECREASES WITH MEDICATION GIVEN PER EMAR. DRESSING TO LEG IS INTACT. PATIENT ON ROOM AIR. PATIENT IS UP AD JOAN AND REMIANS CONTINENT. CALL LIGHT WITHIN REACH.
[2021-09-27 19:37] VITALS: BP 140/84
--- NOTE | 2021-09-28 05:55 | NUR ---
PATIENT AOX4 MAKES NEEDS KNOWN. PATIENT HAS LYMPEDEMA WRAPS ON RLE AND LLE WOUND DRESSING IS C/D/I. PATIENT AMBULATES IN THE ROOM WITH STEADY GAITS. PATIENT IS UP AT JOAN. PATIENT IN BED ASLEEP AT THIS TIME BREATHING REGULAR AND UNLABOURED.
[2021-09-28 06:12] LABS: CALCIUM 8.8 mg/dL (8.5-10.1); POTASSIUM 3.7 mmol/L (3.5-5.1)
[2021-09-28 07:27] VITALS: BP 144/68
--- NOTE | 2021-09-28 16:34 | NUR ---
CM MET WITH AT BEDSIDE THIS DAY. CARE TEAM HAD INDICATED PT MAY NEED PROLONGED IV ABX SERVICES UPON DC. HE STATED HE WANTED REFERRAL SENT TO [facility]. REFERRAL FAXED. CM FOLLOWING REGARDING DC PLANNING.
[2021-09-28 16:47] VITALS: BP 149/90
[2021-09-28 20:12] VITALS: BP 148/76
--- NOTE | 2021-09-29 03:03 | NUR ---
PATIENT AOX4 MAKES NEEDS KNOWN. PATIENT AMBULATES IN THE ROOM WITH STEADY GAITS. DRESSING ON LLE IS C/D/I. LYMEDEMA WRAPS ARE C/D/I ON RLE. PATIENT C/O ITCHING CALLED IT SYSTEMS ENGINEER NEW ORDER OF NORY MEDS ADMINISTED. PATIENT IS UP AT JOAN.PATIENT IN BED ASLEEP AT THIS TIME BREATHING REGULAR AND UNLABOURED.
[2021-09-29 07:00] VITALS: BP 154/80
--- NOTE | 2021-09-29 08:45 | NUR ---
Assess due to length of stay. Admit with recurrent LE cellulitis. Pt has had multiple admissions. Extreme class III obesity, BMI 74 and chronic lymphedema. Highest wt 500 lb this past year, now 477. BG controlled. Pt reports appetite fair, getting tired of food choices. Had not been ordering from alternative menu so assisted with lunch order. Discussed pt's past consult for bariatric surgery, and pt reports still considering but wants to make sure cellulitis improved with no further hospitalizations. Low nutrition risk with appropriate nutrition interventions in place.
--- NOTE | 2021-09-29 16:18 | NUR ---
CARE TEAM INDICATED THAT PT MAY BE MEDICALLY STABLE TO DC OVER WEEKEND. [facility] INDICATED THAT PT HAD EXHAUSTED HIS SKILLED DAYS. PT WAS RECEPTIVE TO HAVING INFO SENT TO [facility] FOR HOME INFUS[facility]. INFO SENT THEY INDICATED THAT PT HAD MET OOP AND DECUCTABLE AND WILL BE COVERED AT 100% FOR DRUG AND SUPPLIES. PT WAS INFORMED AND AGREEABLE TO HOME INFUSION WIHT [facility] AND RESUMPTION OF HH WITH [facility]. PT WANTED BEDSIDE TEACH OVER WHEN MOM COULD BE PRESENT. SHOULD PT BE MEDICALLY STABLE OVER WEEKEND CALL AND FAX TO THE NUMBER BELOW [facility] AND [facility]. [facility]: P: F: [facility]: P: F:
[2021-09-29 19:40] VITALS: BP 134/70
--- NOTE | 2021-09-30 06:26 | NUR ---
Pt. rested quietly at intervals during the night when checked on during frequent rounds. Po pain med given for c/o bilateral leg pain with some relief noted. Po benadryl also goven for c/o itching (see emar) with some relief. Dressings to bilateral lower legs are dry and intact.
[2021-09-30 07:35] VITALS: BP 143/75
--- NOTE | 2021-09-30 11:16 | NUR ---
A #4F SINGLE LUMEN PICC WAS PLACED PER HOSPITAL POLICY AFTER A BEDSIDE TIMEOUT WAS COMPLETED. THE LINE WAS TRIMMED TO 45CM AND ADVANCED WITHOUT DIFFICULTY. THE LINE WAS CONFIRMED AT 0CM EXTERNAL. SECURED AND RELEASED FOR USE
--- NOTE | 2021-09-30 12:17 | NUR ---
PT DISCHARGING TODAY TO [facility] FAXED DC ORDERS/SUMMERY TO FACILITY RECEIVED CONFIRMATION. SPOKE WITH NURSE (BRITTANY) SHE SAID TRANSPORT WAS ALREADY ARRANGED FOR 1100 TODAY. FAMILY NOTIFIED BY NURSE.
[2021-09-30] MEDS ORDERED: LASIX 40 MG TAB40 M1 PO (17:32)
[2021-09-30] MEDS ORDERED: GENTAMICIN SULF15 GM TOP (17:32)
[2021-09-30] MEDS ORDERED: HYDROCODON-ACE1 EAC7 PO (17:32)
[2021-09-30] MEDS ORDERED: LINEZOLID600 MG PO (17:32)
[2021-09-30] MEDS ORDERED: CEFEPIME-D2 GM/50 ML IV (17:32)
[2021-09-30] MEDS ORDERED: KLOR-CON M2020 MEQ PO (17:32)
--- NOTE | 2021-09-30 17:51 | NUR ---
ASSESSMENT CHARTED. PT ALERT AND ORIENTED. VSS. ORDERS GIVEN TO DISCHARGE PT TO HOME WITH HH. DISCHARGE ORDERS FAXED TO [facility]. DISCGARGE ORDERS GIVEN TO PT. PT VERBERLISED UNDERSTANDING. ORDERS GIVEN TO DISCHARGE PT WITH PICC LINE.
[2021-09-30 17:54] VITALS: BP 143/75
== END 2021-09-30 18:10 | DRG 603 ==
LOC: ER 10:47 → 4W 13:21 → EROBS 13:21 → 4W 14:49
PROVIDERS: Emergency Medicine; Specialist; ADMIT Hospitalist; ATTEND Hospitalist
PROC: 05HY33Z Insertion of Infusion Device into Upper Vein, Percutaneous Approach (ICD-10-PCS; principal; 2021-09-30)
DX: L03.116 Cellulitis of left lower limb (principal); I42.9 Cardiomyopathy, unspecified; N17.9 Acute kidney failure, unspecified; E44.1 Mild protein-calorie malnutrition; L97.929 Non-pressure chronic ulcer of unspecified part of left lower leg with unspecified severity; Z68.45 Body mass index [BMI] 70 or greater, adult; F41.9 Anxiety disorder, unspecified; F32.9 Major depressive disorder, single episode, unspecified; I10 Essential (primary) hypertension; E66.9 Obesity, unspecified; E87.6 Hypokalemia; E66.01 Morbid (severe) obesity due to excess calories; E03.9 Hypothyroidism, unspecified; I89.0 Lymphedema, not elsewhere classified; D63.8 Anemia in other chronic diseases classified elsewhere; I87.8 Other specified disorders of veins; L03.115 Cellulitis of right lower limb; E11.42 Type 2 diabetes mellitus with diabetic polyneuropathy; Z88.1 Allergy status to other antibiotic agents; Z82.49 Family history of ischemic heart disease and other diseases of the circulatory system; Z91.19 Patient's noncompliance with other medical treatment and regimen; Z20.822 Contact with and (suspected) exposure to COVID-19
CPT/HCPCS: 10040; 27000

== ENCOUNTER 2021-10-07 17:02 | Emergency (ER) | payer BC, OTHER ==
[~2021-10-07] VITALS: Ht 170.2 cm; Wt 220.9 kg
[~2021-10-07 17:02] MED LIST changes: +CEFEPIME-D2 GM/50 ML IV; +GENTAMICIN SULF15 GM TOP; +KLOR-CON M2020 MEQ PO; +LASIX 40 MG TAB40 M1 PO; +LINEZOLID600 MG PO
[2021-10-07 17:04] VITALS: BP 153/66
== END 2021-10-07 19:25 | disposition home or self-care (01) ==
LOC: ER 17:02
DX: T82.838A Hemorrhage due to vascular prosthetic devices, implants and grafts, initial encounter (principal); F41.9 Anxiety disorder, unspecified; E66.01 Morbid (severe) obesity due to excess calories; Z68.45 Body mass index [BMI] 70 or greater, adult; F32.9 Major depressive disorder, single episode, unspecified; I10 Essential (primary) hypertension; I42.9 Cardiomyopathy, unspecified; Z79.84 Long term (current) use of oral hypoglycemic drugs; Z79.891 Long term (current) use of opiate analgesic; Z79.899 Other long term (current) drug therapy; Z79.1 Long term (current) use of non-steroidal anti-inflammatories (NSAID); Z88.6 Allergy status to analgesic agent; Z88.1 Allergy status to other antibiotic agents; Z88.8 Allergy status to other drugs, medicaments and biological substances

== ENCOUNTER → 2021-11-13 | Outpatient (CLI) | payer OTHER ==
[2021-11-13 17:26] LABS: ABSOLUTE NEUTROPHILS 4.6 thou/uL (1.4-8.2); BASOPHILS 0.7 % (0.0-2.0); EOSINOPHILS 2.4 % (0.0-3.0); HEMATOCRIT 40.6 % (42.0-52.0); HEMOGLOBIN 13.2 gm/dL (14.0-18.0); LYMPHOCYTES 21.2 % (24.0-44.0); MCH 27.6 pg (26.0-34.0); MCHC 32.4 g/dL (28.0-37.0); MCV 85.2 fL (80.0-100.0); MONOCYTES 9.1 % (1.0-8.0); PLATELET COUNT 195 thou/uL (150-400); POLYS 66.6 % (36.0-66.0); RBC 4.77 mil/uL (4.50-6.00); RDW 15.5 % (10.5-14.5); WBC 6.9 thou/uL (4.0-11.0)
[2021-11-13 17:53] LABS: ALBUMIN 4.3 g/dL (3.4-5.0); CALCIUM 9.1 mg/dL (8.5-10.1); CREATININE 0.9 mg/dL (0.7-1.3); POTASSIUM 4.6 mmol/L (3.5-5.1); TOTAL BILIRUBIN 1.1 mg/dL (0.2-1.0); TOTAL PROTEIN 9.5 g/dL (6.4-8.2)
== END ==
LOC: HYPER 08:09
PROVIDERS: Specialist; ATTEND Emergency Medicine
DX: I87.333 Chronic venous hypertension (idiopathic) with ulcer and inflammation of bilateral lower extremity (principal); L97.212 Non-pressure chronic ulcer of right calf with fat layer exposed; L97.221 Non-pressure chronic ulcer of left calf limited to breakdown of skin; L03.115 Cellulitis of right lower limb; L03.116 Cellulitis of left lower limb; L84 Corns and callosities; I89.0 Lymphedema, not elsewhere classified; R60.0 Localized edema; E66.01 Morbid (severe) obesity due to excess calories; E03.8 Other specified hypothyroidism; G47.30 Sleep apnea, unspecified; K21.9 Gastro-esophageal reflux disease without esophagitis; F41.9 Anxiety disorder, unspecified; F32.9 Major depressive disorder, single episode, unspecified; Z68.45 Body mass index [BMI] 70 or greater, adult
CPT/HCPCS: 95116

== ENCOUNTER → 2021-11-27 | Outpatient (CLI) | payer OTHER | LOC: HYPER 13:45 | PROVIDERS: ATTEND Emergency Medicine | DX: I87.333 Chronic venous hypertension (idiopathic) with ulcer and inflammation of bilateral lower extremity (principal); L97.212 Non-pressure chronic ulcer of right calf with fat layer exposed; L97.221 Non-pressure chronic ulcer of left calf limited to breakdown of skin; L03.115 Cellulitis of right lower limb; L03.116 Cellulitis of left lower limb; L84 Corns and callosities; I89.0 Lymphedema, not elsewhere classified; R60.0 Localized edema; E66.01 Morbid (severe) obesity due to excess calories; E03.8 Other specified hypothyroidism; G47.30 Sleep apnea, unspecified; K21.9 Gastro-esophageal reflux disease without esophagitis; F41.9 Anxiety disorder, unspecified; F32.9 Major depressive disorder, single episode, unspecified; Z68.45 Body mass index [BMI] 70 or greater, adult ==

== ENCOUNTER → 2021-12-18 | Outpatient (CLI) | payer OTHER ==
--- NOTE | 2021-12-19 22:50 | HC ---
[facility] [place] [address] CONSULTATION Name: ANATOLYJENNIFER ALMANZA Room #: [facility].#: [id number] Admission: 12/18/21 Attend Phys: Doe Garcia MD Discharge: Date of : 89 Report #: [id number] THIS REPORT FOR: cc: FAM - Family physician unknown FAM - Family physician unknown Tremaine Landis MD ~ DATE OF SERVICE: 12/18/2021 INFECTIOUS DISEASE CONSULTATION REASON FOR CONSULTATION: Followup visit regarding lower extremity recurrent lymphangitis. HISTORY OF PRESENT ILLNESS: The [facility]. He remains on cephalexin 1 g p.o. b.i.d. without apparent side effects. He reports being compliant with his medications. He has had no weight loss. He continues with compression wraps to both lower extremities. He has had no relapse and symptoms for the last several months. Overall, he is happy with his progress. PHYSICAL EXAMINATION: GENERAL: He was afebrile and hemodynamically stable. EXTREMITIES: Morbidly obese with venous stasis dermatitis changes to both lower extremities. Continues with 2-3+ edema. No evidence of cellulitis. No evidence of lymphangitis. IMPRESSION: Overall, happy with his progress on oral suppression for relapsing cellulitis and lymphangitis in the setting of chronic lymphedema and morbid obesity. He also has a cardiomyopathy and ongoing anemia. RECOMMENDATION: We will continue his current antibiotic program, long-term at this point. Continue to advise weight loss program. We will see him back at his next wound care visit. We would like to obtain laboratory studies at that time. <ELECTRONICALLY SIGNED> By: Tremaine Landis MD 12/19/21 [id number] [id number] Tremaine Landis MD /nt
== END ==
LOC: HYPER 09:47
PROVIDERS: ATTEND Emergency Medicine
DX: I87.333 Chronic venous hypertension (idiopathic) with ulcer and inflammation of bilateral lower extremity (principal); L97.221 Non-pressure chronic ulcer of left calf limited to breakdown of skin; L97.211 Non-pressure chronic ulcer of right calf limited to breakdown of skin; L97.812 Non-pressure chronic ulcer of other part of right lower leg with fat layer exposed; L03.115 Cellulitis of right lower limb; L03.116 Cellulitis of left lower limb; I89.0 Lymphedema, not elsewhere classified; L84 Corns and callosities; R60.0 Localized edema; G47.30 Sleep apnea, unspecified; E66.01 Morbid (severe) obesity due to excess calories; F41.9 Anxiety disorder, unspecified; F32.9 Major depressive disorder, single episode, unspecified; Z68.45 Body mass index [BMI] 70 or greater, adult; Z79.899 Other long term (current) drug therapy